=== PATIENT | female | born 1935 | race Caucasian/White ===

== ENCOUNTER 2018-09-18 10:21 | Emergency (ER) | payer OTHER ==
[2018-09-18 10:54] VITALS: BP 137/69; PULSE 86; TEMP 97.8; BMI 30.2
--- NOTE | 2018-09-18 12:02 | PDOC ---
History of Present Illness - General Chief Complaint: Injury Stated Complaint: INJURY Time Seen by Provider: 09/18/18 11:51 History Source: Patient Exam Limitations: No Limitations - History of Present Illness Initial Comments: 09/18/18 11:54 CHIEF COMPLAINT: Fall HISTORY OF PRESENT ILLNESS: This is an 83-year-old female with a history of insulin-dependent diabetes, hypertension, and hypercholesterolemia, all well controlled, who presents with her after a fall. The patient reports that she slipped on the sidewalk. She denies any dizziness, chest pain, or other prodrome and is clear that it was a mechanical fall. She fell onto her right side and broke her fall with her left hand. She complains of right shoulder and rib pain. She denies head strike or LOC, although she has right facial abrasions. Vital signs on arrival are unremarkable. PCP is Dr. Pyle. REVIEW OF SYSTEMS: GENERAL/CONSTITUTIONAL: No fever or chills. No weakness. No weight change. HEAD, EYES, EARS, NOSE AND THROAT: No change in vision. No ear pain or discharge. No sore throat. CARDIOVASCULAR: No chest pain or palpitations. RESPIRATORY: No cough, wheezing, or shortness of breath. GASTROINTESTINAL: No nausea, vomiting, diarrhea or constipation. GENITOURINARY: No dysuria, frequency, or change in urination. MUSCULOSKELETAL: Right shoulder pain, right rib pain worse with deep breathing. SKIN: No rash or easy bruising. NEUROLOGIC: No headache, vertigo, loss of consciousness, or loss of sensation. PSYCHIATRIC: No depression or anxiety. ENDOCRINE: No increased thirst. No abnormal weight change. HEMATOLOGIC/LYMPHATIC: No anemia, easy bleeding, or history of blood clots. ALLERGIC/IMMUNOLOGIC: No hives or skin allergy. No latex allergy. PHYSICAL EXAM: GENERAL: The patient is awake, alert, and fully oriented, in no acute distress. HEAD: Abrasions and ecchymosis around right eye, no tenderness or crepitus. ENT: Pupils equal, round and reactive to light, extraocular movements intact with no ophthalmoplegia, sclera anicteric, conjunctiva clear. Neck supple. LUNGS: Clear to auscultation bilaterally. Normal excursion. No respiratory distress or use of accessory muscles. CV: RRR, S1/S2, no MRG. Cap refill < 2 sec. ABDOMEN: Soft, non-distended, non-tender. EXTREMITIES: Right shoulder elevation/abduction limited due to pain. Swelling and ecchymosis at left 1st MCP, multiple hand abrasions. NEUROLOGICAL: Normal speech, normal gait. CN II-XII grossly intact. PSYCH: Normal mood, normal affect. SKIN: Warm, dry, normal turgor, no rashes or lesions noted. Past History - Past Medical History Allergies/Adverse Reactions: Allergies Allergy/AdvReac Type Severity Reaction Status Date / Time No Known Allergies Allergy Verified 09/18/18 10:50 Home Medications: Ambulatory Orders Amlodipine Besylate [Norvasc -] 10 mg PO DAILY 10/03/15 Ascorbate Calcium [Vitamin C] 500 mg PO DAILY 10/03/15 Atorvastatin Ca [Lipitor -] 40 mg PO HS 10/03/15 Calcium Carbonate/Vitamin D3 [Calcium 500 + Vit D3 400 Tab] 1 each PO BID Metformin HCl [Glucophage] 1,000 mg PO BID 10/03/15 Multivitamins [Tab-A-Vit -] 1 tab PO DAILY 10/03/15 Quinapril HCl [Accupril] 40 mg PO DAILY 10/03/15 Aspirin [Ecotrin] 81 mg PO DAILY 10/04/15 Atenolol/Chlorthalidone [Atenolol-Chlorthalidone 50-25] 1 each PO HS 10/04/15 Potassium Chloride [K-Dur] 10 meq PO ASDIR 10/04/15 Acetaminophen W/ Codeine #3 [Tylenol # 3 -] 1 tab PO Q4H PRN #30 tablet MDD 6 tabs 09/18/18 Insulin Aspart [Novolog] 0 unit SQ ASDIR 09/18/18 Insulin Degludec [Tresiba Flextouch U-100] 34 unit SQ HS 09/18/18 Anemia: No Asthma: No Cancer: No Cardiac Disorders: No CVA: No COPD: No CHF: No Dementia: No Diabetes: Yes (IDDM) GI Disorders: Yes (CONSTIPATION) Disorders: No HTN: Yes Hypercholesterolemia: Yes Liver Disease: No Seizures: No Thyroid Disease: No - Surgical History Abdominal Surgery: No Appendectomy: No Cardiac Surgery: No Cholecystectomy: No Lung Surgery: No Neurologic Surgery: No - Immunization History Immunization Up to Date: Yes - Suicide/Smoking/Psychosocial Hx Smoking History: Never smoked Hx Alcohol Use: No Drug/Substance Use Hx: No Substance Use Type: None Hx Substance Use Treatment: No *Physical Exam - Vital Signs Last Vital Signs Temp Pulse Resp BP Pulse Ox 97.8 F 86 16 137/69 99 09/18/18 10:50 09/18/18 10:50 09/18/18 10:50 09/18/18 10:50 09/18/18 10:50 Medical Decision Making - Medical Decision Making 09/18/18 14:26 A/P: 83-year-old female with multiple injuries following a mechanical fall. -Head CT (age > 65) -Xrays right shoulder, right ribs, left hand -Wound irrigation, bacitracin, tetanus booster -Lidoderm patch to right ribs (patient took Naproxen prior to arrival and declines additional analgesia) 09/18/18 14:28 Shoulder xray: no acute process Ribs: right 6th and 7th rib fractures, no signs of pneumothorax Hand xray: no acute process CT: No acute process, chronic right occipital lobe infarct (discussed with patient and provided copy of study) Provided incentive spirometer and reviewed use Rx Tylenol #3 Discussed with PCP, Dr. Pyle *DC/Admit/Observation/Transfer Diagnosis at time of Disposition: Shoulder sprain, Sprain of left hand Fall Qualifiers: Encounter type: initial encounter Qualified Code(s): W19.XXXA - Unspecified fall, initial encounter Ribs, multiple fractures Qualifiers: Encounter type: initial encounter Laterality: right - Discharge Dispostion Disposition: HOME Condition at time of disposition: Stable Decision to Admit order: No - Prescriptions Prescriptions: Acetaminophen W/ Codeine #3 [Tylenol # 3 -] 1 tab PO Q4H PRN #30 tablet MDD 6 tabs PRN Reason: Pain - Referrals Referrals: Gerardo Pyle MD [Staff Physician] - - Patient Instructions Printed Discharge Instructions: How to Use a Sling, DI for Rib Fracture Additional Instructions: You have fractures of the right 6th and 7th ribs Take Tylenol #3 as prescribed for pain. When pain is controlled, do incentive spirometry as discussed to prevent pneumonia (as often as possible, at least every hour while awake) Keep abrasions clean and dry and apply bacitracin twice daily Follow up with Dr yPle Return for uncontrolled pain or any other concerning symptoms - Post Discharge Activity
[2018-09-18] MEDS ORDERED: LIDOCAINE 5% TOPICAL PATCH TP ONE (12:10)
[2018-09-18] MEDS ORDERED: LIDOCAINE 5% TOPICAL PATCH ONE (12:57)
[2018-09-18] MEDS ORDERED: DIPHTH,PERTUSS(ACELL),TET 0.5 ML DISP.SYRIN IM ONE (14:22)
[2018-09-18] MEDS ORDERED: BACITRACIN 15 GM TUBE TOPICAL OINTMENT TP ONE (14:23)
[2018-09-18] MEDS ORDERED: BACITRACIN 0.9 GM PACKET ONE (14:40)
[2018-09-18] MEDS ORDERED: LIDOCAINE PATCH REMOVAL MC SCH (22:00)
== END 2018-09-18 15:30 | disposition home or self-care (01) ==
LOC: JER 10:21
PROC: 3E0234Z Introduction of Serum, Toxoid and Vaccine into Muscle, Percutaneous Approach (ICD-10-PCS; principal; 2018-09-18)
DX: S22.41XA Multiple fractures of ribs, right side, initial encounter for closed fracture (principal); S43.491A Other sprain of right shoulder joint, initial encounter; S00.11XA Contusion of right eyelid and periocular area, initial encounter; S60.222A Contusion of left hand, initial encounter; S60.512A Abrasion of left hand, initial encounter; S00.211A Abrasion of right eyelid and periocular area, initial encounter; W18.39XA Other fall on same level, initial encounter; Y93.01 Activity, walking, marching and hiking; Y92.480 Sidewalk as the place of occurrence of the external cause; Y99.8 Other external cause status; I10 Essential (primary) hypertension; E78.00 Pure hypercholesterolemia, unspecified; E11.9 Type 2 diabetes mellitus without complications; Z79.4 Long term (current) use of insulin
CPT/HCPCS: 70450-TC; 71101-TC-RT-FY; 73030-TC-RT-FY; 73130-TC-LR-FY; 90715; 99282-25

== ENCOUNTER 2019-03-30 14:49 | Emergency (ER) | payer OTHER | END 2019-03-30 17:23 | disposition home or self-care (01) | LOC: JERFT 14:49 ==

== ENCOUNTER 2019-05-18 11:12 | Emergency (ER) | payer OTHER ==
[2019-05-18 11:34] VITALS: BP 158/49; PULSE 74; TEMP 97.8; BMI 28.5
--- NOTE | 2019-05-18 13:59 | PDOC ---
History of Present Illness - General Chief Complaint: Back Pain Stated Complaint: BACK PAIN Time Seen by Provider: 05/18/19 13:18 History Source: Patient Exam Limitations: No Limitations - History of Present Illness Initial Comments: 05/18/19 14:00 83 yo F with a hx of HTN, HLD, DM on insulin, and recent left shoulder dislocation 1 month ago currently at PT presents to the emergency department with lower left back pain with radiation to the lateral aspect of the left thigh for 5 days. Per the patient, she was doing a new exercise that consisted of rotational forces on the shoulder while sitting down (a sitting down bike). The patient awoke the next morning after the exercise with bilateral lower back pain with worsening left lower back pain since. She states its 8/10, constant, sharp in quality with negligible relief with tylenol. She states the pain is absent in the morning and presents when she moves. The pain worsens when ambulating and when sitting up. Denies the following: trauma, fever, chills, hx of kidney stones, dysuria, hematuria, vaginal bleeding, vaginal discharge, urinary incontinence, and constipation. Allergies: NKDA Surgical: Hysterectomy 30+ years ago Social: Denies tobacco, alcohol, and substance abuse Past History - Past Medical History Allergies/Adverse Reactions: Allergies Allergy/AdvReac Type Severity Reaction Status Date / Time No Known Allergies Allergy Verified 05/18/19 11:27 Home Medications: Ambulatory Orders Amlodipine Besylate [Norvasc -] 10 mg PO DAILY 10/03/15 Ascorbate Calcium [Vitamin C] 500 mg PO DAILY 10/03/15 Atorvastatin Ca [Lipitor -] 40 mg PO HS 10/03/15 Calcium Carbonate/Vitamin D3 [Calcium 500 + Vit D3 400 Tab] 1 each PO BID Multivitamins [Tab-A-Vit -] 1 tab PO DAILY 10/03/15 Quinapril HCl [Accupril] 40 mg PO DAILY 10/03/15 Aspirin [Ecotrin] 81 mg PO DAILY 10/04/15 Atenolol/Chlorthalidone [Atenolol-Chlorthalidone 50-25] 1 each PO HS 10/04/15 Insulin Aspart [Novolog] 0 unit SQ ASDIR 09/18/18 Insulin Degludec [Tresiba Flextouch U-100] 34 unit SQ HS 09/18/18 Acetaminophen [Tylenol -] 500 mg PO Q6H PRN 05/18/19 Anemia: No Asthma: No Cancer: No Cardiac Disorders: No CVA: No COPD: No CHF: No Dementia: No Diabetes: Yes (IDDM) GI Disorders: Yes (CONSTIPATION) Disorders: No HTN: Yes Hypercholesterolemia: Yes Liver Disease: No Seizures: No Thyroid Disease: No - Surgical History Abdominal Surgery: No Appendectomy: No Cardiac Surgery: No Cholecystectomy: No Lung Surgery: No Neurologic Surgery: No - Immunization History Immunization Up to Date: Yes - Suicide/Smoking/Psychosocial Hx Smoking History: Unknown if ever smoked Hx Alcohol Use: No Drug/Substance Use Hx: No Substance Use Type: None Hx Substance Use Treatment: No *Physical Exam - Vital Signs Last Vital Signs Temp Pulse Resp BP Pulse Ox 97.8 F 74 16 158/49 L 99 05/18/19 11:32 05/18/19 11:32 05/18/19 11:32 05/18/19 11:32 05/18/19 11:32 - Physical Exam General Appearance: Yes: Nourished, Appropriately Dressed, Thin. No: Apparent Distress, Intoxicated HEENT: positive: EOMI, RICARDO, Symmetrical. negative: Pale Conjunctivae, Scleral Icterus (R), Scleral Icterus (L), Muffled/Hoarse voice, Pharyngeal Erythema, Tonsillar Exudate, Tonsillar Erythema Neck: positive: Trachea midline, Supple. negative: Tender, Lymphadenopathy (R) , Lymphadenopathy (L), Tender lateral, Tender midline Respiratory/Chest: positive: Lungs Clear, Normal Breath Sounds. negative: Chest Tender, Respiratory Distress, Accessory Muscle Use, Crackles, Rales, Rhonchi, Stridor, Wheezing Cardiovascular: positive: Regular Rhythm, Regular Rate, S1, S2. negative: Systolic Murmur Gastrointestinal/Abdominal: positive: Normal Bowel Sounds, Flat, Soft. negative : Tender Lymphatic: negative: Adenopathy Musculoskeletal: positive: Normal Inspection, Other (left paravertebral tenderness in the lumbar/sacral region with tenderness to palpation in the superior gluteus region. positive SLR test on the left side with elicitation of pain. pain provoked in the left lumbar region when standing and ambulating. ). negative: CVA Tenderness, Vertebral Tenderness *DC/Admit/Observation/Transfer Diagnosis at time of Disposition: Back pain Qualifiers: Back pain location: low back pain Chronicity: acute Back pain laterality: left Sciatica presence: with sciatica Sciatica laterality: sciatica laterality unspecified Qualified Code(s): M54.40 - Lumbago with sciatica, unspecified side - Discharge Dispostion Disposition: HOME Decision to Admit order: No - Referrals Referrals: Vernon Bell DO [Staff Physician] - - Patient Instructions Printed Discharge Instructions: DI for Low Back Pain Additional Instructions: You were seen for your back pain that occurred since . You are likely having sciatica pain vs muscular skeletal strain. Please follow up with your doctor within 1 week after discharge for follow up care and management. Please return to the emergency department if you have worsening pain or new concerning symptoms such as inability to walk, urinary troubles, and loss of balance. Thank you - Post Discharge Activity
[2019-05-18] MEDS ORDERED: LIDOCAINE 5% TOPICAL PATCH TP ONE (14:27)
[2019-05-18] MEDS ORDERED: ACETAMINOPHEN 325 MG TABLET (FP) PO ONE (14:27)
--- NOTE | 2019-05-18 15:40 | PDOC ---
Documentation entered by Jacqueline Ng SCRIBE, acting as scribe for Marcus Wright MD. Marcus Wright MD: This documentation has been prepared by the anabelibe, Jacqueline Ng SCRIBE, under my direction and personally reviewed by me in its entirety. I confirm that the documentation accurately reflects all work, treatment, procedures, and medical decision making performed by me. Attending Attestation - Resident Resident Name: Trent Benitez - ED Attending Attestation I have performed the following: I have examined & evaluated the patient, The case was reviewed & discussed with the resident, I agree w/resident's findings & plan - HPI HPI: 05/18/19 15:31 83-year-old female with history of hypertension and insulin-dependent diabetes presents with atraumatic left low back pain 4 days. Patient was at physical therapy, was on stationary bike and tolerated the exercise well 4 days ago. She awoke the next morning with some left low back pain that was initially localized and then began radiating down her posterior thigh to her knee. The pain is positional, worse with sitting up or initially sitting down, not associated with any weakness/numbness/bowel or bladder issues. No fall, no fevers or chills, no rash. No history of disc disease or chronic back issues. Taking Tylenol with minimal relief, avoid NSAIDs secondary to newly diagnosed renal insufficiency. - Physicial Exam PE: 05/18/19 15:32 Vital signs stable Seated comfortably in a wheelchair, in no acute distress, conversant and well appearing No midline spine tenderness to palpation or step-off or deformity No rash Reproducible tenderness in the left low back/left upper buttock region 5 out of 5 flexion/extension of bilateral hips/knees/ankle/toes. 2+ distal pulses, 3+ pitting edema bilaterally - Medical Decision Making 05/18/19 15:39 83-year-old female with atraumatic left low back pain with sciatic component, neurovascularly intact with full strength. No other red flags on history or physical exam. Lumbar spine x-ray Trial of Tylenol and lidocaine patch Discharge with orthopedics/PT referral. Can consider outpatient MRI if symptoms persist or worsen.
[2019-05-18] MEDS ORDERED: LIDOCAINE 5% TOPICAL PATCH ONE (15:41)
[2019-05-18] MEDS ORDERED: ACETAMINOPHEN 325 MG TABLET (FP) ONE (15:41)
[2019-05-18] MEDS ORDERED: LIDOCAINE PATCH REMOVAL MC SCH (22:00)
== END 2019-05-18 17:30 | disposition home or self-care (01) ==
LOC: JER 11:12
DX: M54.42 Lumbago with sciatica, left side (principal); I10 Essential (primary) hypertension; E11.9 Type 2 diabetes mellitus without complications; Z79.4 Long term (current) use of insulin; E78.00 Pure hypercholesterolemia, unspecified
CPT/HCPCS: 72100-TC-FY; 99281-25

== ENCOUNTER 2019-05-31 12:37 | Inpatient (IN) | payer OTHER ==
--- NOTE | 2019-05-31 13:04 | PDOC ---
Documentation entered by Areli Contreras SCRIBE, acting as scribe for Liberty Link DO. Liberty Link DO: This documentation has been prepared by the Ben murdock Mackenzie, SCRIBE, under my direction and personally reviewed by me in its entirety. I confirm that the documentation accurately reflects all work , treatment, procedures, and medical decision making performed by me. Attending Attestation - Resident Resident Name: Arpan Seth - ED Attending Attestation I have performed the following: I have examined & evaluated the patient, The case was reviewed & discussed with the resident, I agree w/resident's findings & plan - HPI HPI: The patient is an 84 year old female, with a significant PMH of IDDM, HTN, HLD, and a recent L4 fracture and left shoulder fracture, who presents to the emergency department BIBA because when she took her glucose level this morning it read as 55. Patient states she has been feeling lethargic and groggy for about 2 weeks after starting percocet (prescribed for her fractures) and this morning she found it very hard to get up. After taking her glucose level she drank some sugary fruit juice and her glucose came up to 85 though she was prompted to come in because she still felt very groggy and unlike herself. The patient denies chest pain, shortness of breath, headache and dizziness. Denies fever, chills, nausea, vomiting, diarrhea and constipation. Denies dysuria, frequency, urgency and hematuria. Allergies: NKA PCP: Dr. Harrell 05/31/19 13:43 - Physicial Exam PE: Constitutional: (+)Slightly lethargic. Awake, oriented. No acute distress. Head: Normocephalic. Atraumatic Eyes: PERRL. EOMI. Conjunctivae are not pale. ENT: Mucous membranes are moist and intact. Posterior pharynx without exudates or erythema. Uvula midline. Neck: Supple. Full ROM. No lymphadenopathy. Cardiovascular: Regular rate. Regular rhythm. S1, S2 regular. Distal pulses are 2+ and symmetric. Pulmonary/Chest: No evidence of respiratory distress. Clear to auscultation bilaterally No wheezing, rales or rhonchi. Abdominal: Soft and non-distended. There is no tenderness. No rebound, guarding or rigidity. No organomegaly. No palpable masses. Good bowel sounds. Back: No midline C, T, or L spine tenderness. No CVA tenderness. Musculoskeletal: No edema. No cyanosis. No clubbing. Full range of motion in all extremities. Nocalf tenderness. Radial/pedal pulses are intact and 2+ bilaterally Skin: Skin is warm and dry. No petechiae. No purpura. Neurological: Alert and oriented to person, place, and time. Cranial nerves II -XII are grossly intact. Normal speech. Strength is grossly symmetric. No sensory deficits. Psychiatric: Good eye contact. Normal interaction, affect and behavior. 05/31/19 13:44 - Critical Care Time Total Critical Care Time: 45 Critical Care Statement: The care of this patient involved high complexity decision making to prevent further life threatening deterioration of the patient 's condition and/or to evaluate & treat vital organ system(s) failure or risk of failure. - Medical Decision Making 05/31/19 13:32 I, Dr. Liberty Link, DO, attest that this document has been prepared under my direction and personally reviewed by me in its entirety. I further attest, that it accurately reflects all work, treatment, procedures and medical decision -making performed by me. 05/31/19 13:32 a/p: 84yo female with recent dx of L4 fx and pain down the L leg who started percocet yesterday and this AM has been lethargic with low glucose x 2 episodes this AM -pt arrives awake, alert after receiving glucose by the ambulance and at home by the -pt started percocet yesterday after being dx with L4 fx after 2 weeks of lbp and radiation down the L leg -pmd is dr. harrell -making appt to see back specialist at [facility] -pt denies dysuria, no cp/sob, no cough, no f/c -denies n/v/d -lethargic this AM after taking percocet at 8am -pt had low blood glucose at home 55- went to 85 after oral intake -again dropped to below 65 and again dosed with glucose by medics -had brbpr on -none since and states normal because of hx of hemorrhoids -had bm yesterday without blood -on iron for anemia -will send labs, ekg, finger stick, cxr, head ct -suspect adverse drug reaction from percocet causing low bp and lethargy - will check labs and eval for infection/head ct -no focal neuro findings 05/31/19 15:41 pt with hgb 4 - resident performed the rectal and stool is heme + elevated bun/cr resident ordered blood transfusion, she discussed the case with Dr. Harrell who recommends admission to [facility] resident discussed the case with [facility] who accepts the patient to service resident ordered the blood transfusion 05/31/19 15:[address]-old infarcts 05/31/19 15:51 cxr clear Heart Score/ECG Review - ECG Intrepretation Comment:: 05/31/19 13:03 sinus at 71, nl axis, nl interval, no acute st/t wave findings, t wave inversions III which are nonspecific
[2019-05-31] MEDS ORDERED: ONDANSETRON 4 MG/2 ML VIAL IVPUSH ONE (13:18)
[2019-05-31] MEDS ORDERED: NALOXONE HCL 0.4 MG/ML VIAL IVPUSH ONE (13:18)
[2019-05-31] MEDS ORDERED: SODIUM CHLORIDE 0.9% 500 ML INFUS.BAG IV ONE (13:31)
--- NOTE | 2019-05-31 13:32 | PDOC ---
History of Present Illness - General Chief Complaint: Blood Sugar Problem Stated Complaint: LOW BLOOD PRESSURE Time Seen by Provider: 05/31/19 12:46 - History of Present Illness Initial Comments: 05/31/19 13:44 84 y/o F hx of IDDM, Htn, chronic pancreatitis and recent L4 fracture presents to the ED with low blood sugar and somnolence. her found her diificult to rouse this morning and found her blood sugar to be low (55). she was given orange juice which brought her sugar up to 85 but her somnolence persisted. She was brought to the ED via EMS. She has been taking percocet as prescribed by her PCP over the last 2 wks for her back pain. She denies any fever, chills. LOC , recent falls, trauma, dysuria, hematuria, abdominal pain, headache, numbness or tingling.She feels lightheaded and has had some blood in her stool from her hemorrhoids. 06/04/19 16:12 Past History - Past Medical History Allergies/Adverse Reactions: Allergies Allergy/AdvReac Type Severity Reaction Status Date / Time No Known Allergies Allergy Verified 05/31/19 12:41 Home Medications: Ambulatory Orders Amlodipine Besylate [Norvasc -] 10 mg PO DAILY 10/03/15 Ascorbate Calcium [Vitamin C] 500 mg PO DAILY 10/03/15 Atorvastatin Ca [Lipitor -] 40 mg PO HS 10/03/15 Calcium Carbonate/Vitamin D3 [Calcium 500 + Vit D3 400 Tab] 1 each PO BID Multivitamins [Tab-A-Vit -] 1 tab PO DAILY 10/03/15 Quinapril HCl [Accupril] 40 mg PO DAILY 10/03/15 Aspirin [Ecotrin] 81 mg PO DAILY 10/04/15 Atenolol/Chlorthalidone [Atenolol-Chlorthalidone 50-25] 1 each PO HS 10/04/15 Insulin Aspart [Novolog] 0 unit SQ ASDIR 09/18/18 Insulin Degludec [Tresiba Flextouch U-100] 34 unit SQ HS 09/18/18 Acetaminophen [Tylenol -] 500 mg PO Q6H PRN 05/18/19 Anemia: No Asthma: No Cancer: No Cardiac Disorders: No CVA: No COPD: No CHF: No Dementia: No Diabetes: Yes (IDDM) GI Disorders: Yes (CONSTIPATION) Disorders: No HTN: Yes Hypercholesterolemia: Yes Liver Disease: No Seizures: No Thyroid Disease: No Other medical history: back problems, chronic pancreatitis - Surgical History Abdominal Surgery: No Appendectomy: No Cardiac Surgery: No Cholecystectomy: No Lung Surgery: No Neurologic Surgery: No - Immunization History Immunization Up to Date: Yes - Suicide/Smoking/Psychosocial Hx Smoking History: Never smoked Hx Alcohol Use: No Drug/Substance Use Hx: No Substance Use Type: None Hx Substance Use Treatment: No *Physical Exam - Vital Signs Last Vital Signs Temp Pulse Resp BP Pulse Ox 98.5 F 74 18 93/47 L 90 L 05/31/19 12:41 05/31/19 12:41 05/31/19 12:41 05/31/19 12:41 05/31/19 12:41 - Physical Exam General Appearance: Yes: Nourished, Appropriately Dressed. No: Apparent Distress HEENT: positive: Normal Voice, Symmetrical. negative: Scleral Icterus (R), Scleral Icterus (L) Neck: positive: Supple Respiratory/Chest: positive: Normal Breath Sounds. negative: Chest Tender, Respiratory Distress, Accessory Muscle Use Cardiovascular: positive: Regular Rhythm, Regular Rate, S1, S2, Edema. negative : JVD Vascular Pulses: Dorsalis-Pedis (R): 2+, Doralis-Pedis (L): 2+ Gastrointestinal/Abdominal: positive: Normal Bowel Sounds, Soft. negative: Organomegaly, Pulsatile Mass, Distended, Guarding, Rebound, Tenderness Rectal Exam: positive: normal exam, normal rectal tone Extremity: positive: Pedal Edema, Swelling, Other (2+ pitting edema to the calf) . 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 negative: Facial Droop ED Treatment Course - LABORATORY CBC & Chemistry Diagram: 06/04/19 05:17 06/04/19 05:17 Medical Decision Making - Medical Decision Making 05/31/19 13:40 84 y/o F hx of T2DM on insulin, htn, recent L4 fracture presenting to the ED with low blood sugar and increased somnolence this a.m Labs/Imaging/meds cbc troponin, cmp ekg drug screen lactic acid magnesium bnp pt/inr tsh ua - 500 cc normal saline for hypotension -EKG normal sinus rhythm. Normal EKG 05/31/19 14:13 CXR shows old skeletal trauma, no acute chest pathology. POC fingerstick glucose is 101 05/31/19 14:38 H&H: 4.6/14.4 Type and screen and stool for occult blood ordered. 05/31/19 15:09 Dr. Mendoza contacted for pt. admission. Agrees with admission plan. [facility] admitting team has been microblogged for pt. admission. *DC/Admit/Observation/Transfer Diagnosis at time of Disposition: Hypoglycemia Anemia Qualifiers: Anemia type: unspecified type Qualified Code(s): D64.9 - Anemia, unspecified - Discharge Dispostion Decision to Admit order: Yes - Referrals - Patient Instructions - Post Discharge Activity
[2019-05-31 14:19] LABS: BASO % 0.5 % (0-2.0); EOS % 0.1 % (0-4.5); LYMPH % 8.2 % (8-40); MCH 21.8 pg (25.7-33.7); MCHC 31.5 g/dl (32.0-36.0); MEAN CELL VOLUME 69.1 fl (80-96); MEAN PLT VOLUME 8.4 fl (7.5-11.1); MONO % 3.2 % (3.8-10.2); PLATELET COUNT 191 K/MM3 (134-434); RBC 2.09 M/mm3 (3.60-5.2); RDW 14.9 % (11.6-15.6); WHITE BLOOD COUNT 10.7 K/mm3 (4.0-10.0)
[2019-05-31 14:33] LABS: HEMATOCRIT 14.4 % (32.4-45.2); HEMOGLOBIN 4.6 GM/dL (10.7-15.3)
[2019-05-31 14:48] LABS: ALBUMIN 2.4 g/dl (3.4-5.0); BILIRUBIN,TOTAL 0.2 mg/dL (0.2-1); BLOOD UREA NITROGEN 82.9 mg/dL (7-18); CALCIUM 7.9 mg/dL (8.5-10.1); CREATININE 2.8 mg/dL (0.55-1.3); MAGNESIUM 2.3 mg/dL (1.8-2.4); N-TERMINAL BNP 2673.1 pg/ml (5-450); POTASSIUM 4.9 mmol/L (3.5-5.1); TOT PROT 5.1 g/dl (6.4-8.2)
--- NOTE | 2019-05-31 16:24 | HP ---
Admitting History and Physical - Primary Care Physician PCP: Gerardo Pyle - Admission Chief Complaint: malaise/low blood sugar/generalized weakness History of Present Illness: Patient is an 84 year old female with a significant past medical history of insulin dependent diabetes mellitus, hypertension, hyperlipidemia, blood disorder (thalassemia) per family member and a recent L4 fracture for which she began taking Percocet for back pain, left sided proximal humerous fracture and renal insufficiency. Patient presented to the ED via ambulance accompanied by her family. Per family and patient, patient has not been feeling well for the last two weeks since starting Percocet for back pain. This morning patient was noted to be more lethargic and groggy and it was hard for her to perform any of her ADLs. Her family tested her glucose levels and it was 55, she was given orange juce and the repeat glucose level was 85. Her family became concerned because patient was very weak and lethargic, therefore EMS was called. Patient had no head trauma, no falls and no chest pain. Family reports that patient had a rectal bleed episode on Saturday after using the bathroom. patient began to strain to have a bowel movement and had bright red blood noted in the toilet. On exam, patient is laying in the bed, she tells me she is in no acute distress and denies any malaise. She does appear fatigued and is pallorous. She is on oxygen for support. clinically appears dehydrated. She is alert and oriented x 3. discussed plan with patient and family and they are in agreement with plan. The patient denies chest pain, shortness of breath, headache and dizziness. Denies fever, chills, nausea, vomiting, diarrhea Denies dysuria, frequency, urgency and hematuria. ED course notable for: - blood sugar was 112 - she was noted to be hypotensive: 90/40 and she was given fluid bolus of 500cc ns. repeat BP pending. - vitals: 98.5, 74, 90% room and placed on 2 liters nc - hmg/hct 4.6/14.4. rectal exam performed by ED resident which was +heme - bun 82/2.8 - iron studies ordered prior to blood transfusion Plan: Will keep her NPO and start protonix drip. Start IVF resuscitation. Monitor on tele 2 units of prbc have been ordered for a repeat CBC post blood transfusion/type and screen and stool for occult blood ordered. monitor vitals q 4 hours GI and renal consulted hold PO meds, including cardiac meds and check BGMS q 4 hours History Source: Patient, Family Member Limitations to Obtaining History: No Limitations - Past Medical History Cardiovascular: Yes: HTN ...: No Heme/Onc: Yes: Bleeding Disorder Musculoskeletal: Yes: Chronic low back pain - Smoking History Smoking history: Never smoked - Alcohol/Substance Use Hx Alcohol Use: No - Social History Usual Living Arrangement: Yes: With Spouse ADL: Independent History of Recent Travel: No Home Medications - Allergies Allergies/Adverse Reactions: Allergies Allergy/AdvReac Type Severity Reaction Status Date / Time No Known Allergies Allergy Verified 05/31/19 12:41 - Home Medications Home Medications: Ambulatory Orders Amlodipine Besylate [Norvasc -] 10 mg PO DAILY 10/03/15 Ascorbate Calcium [Vitamin C] 500 mg PO DAILY 10/03/15 Atorvastatin Ca [Lipitor -] 40 mg PO HS 10/03/15 Calcium Carbonate/Vitamin D3 [Calcium 500 + Vit D3 400 Tab] 1 each PO BID Multivitamins [Tab-A-Vit -] 1 tab PO DAILY 10/03/15 Quinapril HCl [Accupril] 40 mg PO DAILY 10/03/15 Aspirin [Ecotrin] 81 mg PO DAILY 10/04/15 Atenolol/Chlorthalidone [Atenolol-Chlorthalidone 50-25] 1 each PO HS 10/04/15 Insulin Aspart [Novolog] 0 unit SQ ASDIR 09/18/18 Insulin Degludec [Tresiba Flextouch U-100] 34 unit SQ HS 09/18/18 Acetaminophen [Tylenol -] 500 mg PO Q6H PRN 05/18/19 Review of Systems - Review of Systems Constitutional: reports: Lethargy, Loss of Appetite, Malaise Eyes: reports: No Symptoms HENT: reports: No Symptoms Neck: reports: No Symptoms Cardiovascular: reports: No Symptoms Respiratory: reports: Exercise Intolerance, SOB on Exertion Gastrointestinal: reports: Melena Genitourinary: reports: No Symptoms Breasts: reports: No Symptoms Reported Musculoskeletal: reports: Back Pain Integumentary: reports: Pallor Hematology/Lymphatic: reports: Excessive Bleeding Physical Examination Vital Signs: Vital Signs Temperature 98.5 F 07/28/19 12:41 Pulse Rate 74 05/31/19 12:41 Respiratory Rate 18 05/31/19 12:41 Blood Pressure 93/47 L 05/31/19 12:41 O2 Sat by Pulse Oximetry (%) 90 L 05/31/19 12:41 Constitutional: Yes: Calm, Ashen, Pallor Eyes: Yes: WNL HENT: Yes: WNL, Atraumatic Neck: Yes: WNL, Supple, Trachea Midline Cardiovascular: Yes: Regular Rate and Rhythm Respiratory: Yes: Diminished Gastrointestinal: Yes: Soft ...Rectal Exam: Yes: Deferred Renal/: Yes: WNL Musculoskeletal: Yes: Back Pain Extremities: Yes: WNL Edema: No Peripheral Pulses WNL: No Integumentary: Yes: WNL Neurological: Yes: Alert, Oriented Psychiatric: Yes: Alert, Oriented Labs: CBC, BMP 05/31/19 14:06 05/31/19 14:06 Imaging - Results Chest X-ray: Report Reviewed Problem List - Problems (1) Rectal bleed Assessment/Plan: patient presents with severe symptomatic anemia with hmg/hct @ 4.6/14. Reports a rectal bleed on Saturday after straining to have a BM. Stool for guaic + for heme Start on protonix drip consult GI (follows with Dr. Meraz) Will keep NPO for acute rectal bleed. Code(s): K62.5 - HEMORRHAGE OF ANUS AND RECTUM (2) Anemia Assessment/Plan: patient presents with severe symptomatic anemia with hmg/hct @ 4.6/14. Reports a rectal bleed on Saturday after straining to have a BM. Stool for guaic + for heme for 2 units of PRBC tonight to be started, which will take apx 8 hours to infuse. therefore, will recheck CBC at 0500. Start on protonix drip consult GI (follows with Dr. Meraz) Will keep NPO for acute rectal bleed. Code(s): D64.9 - ANEMIA, UNSPECIFIED Qualifiers: Anemia type: unspecified type Qualified Code(s): D64.9 - Anemia, unspecified (3) Symptomatic anemia Assessment/Plan: see anemia. Code(s): D64.9 - ANEMIA, UNSPECIFIED (4) Hypoglycemia Assessment/Plan: hypoglycemic at home with blood glucose 55, patient reported to be lethargic at home head ct negative for acute process blood sugar here 112, will give d5 ns @ 100 during admission with close monitoring of bgms Q4 hours if falls below 70, please administer d50 to maintain bgms above 150 for a1c in a.m. Code(s): E16.2 - HYPOGLYCEMIA, UNSPECIFIED (5) Hypotension Assessment/Plan: hypotensive likely secondary to acute anemia fluid bolus 500cc and start on maintenance fluids blood cultures ordered to rule out acute infection telemonitoring Code(s): I95.9 - HYPOTENSION, UNSPECIFIED (6) Renal insufficiency Assessment/Plan: bun creat elevated on admission. follows with Dr. Hernandez for renal insufficiency will renal dose all medications Code(s): N28.9 - DISORDER OF KIDNEY AND URETER, UNSPECIFIED (7) Back pain Code(s): M54.9 - DORSALGIA, UNSPECIFIED Qualifiers: Back pain location: low back pain Chronicity: acute Back pain laterality : left Sciatica presence: with sciatica Sciatica laterality: sciatica laterality unspecified Qualified Code(s): M54.40 - Lumbago with sciatica, unspecified side (8) Diabetes Assessment/Plan: bgms q 4, hold insulin Code(s): E11.9 - TYPE 2 DIABETES MELLITUS WITHOUT COMPLICATIONS (9) Back pain Assessment/Plan: chronic back pain on percocet at home. Percocet likely contributing to lethargy and constipation. hold all narcotics. on tylenol ivpb, will add lidoderm patch for back pain. physical therapy when patient more stable. Code(s): M54.9 - DORSALGIA, UNSPECIFIED (10) Prophylactic measure Assessment/Plan: fen d5 ns @ 100 monitor electrolytes NPO prophy SCDS Code(s): Z29.9 - ENCOUNTER FOR PROPHYLACTIC MEASURES, UNSPECIFIED Assessment/Plan Monitor patient bp closely as well as bgms. she is for prbc x 2 with repeat cbc in a.m. suspect she will need another 2 units pending cbc. may need further GI workup for acute blood loss anemia, therefore will keep NPO. Visit type - Emergency Visit Emergency Visit: Yes ED Registration Date: 05/31/19 Care time: The patient presented to the Emergency Department on the above date and was hospitalized for further evaluation of their emergent condition. - New Patient This patient is new to me today: Yes Date on this admission: 05/31/19 - Critical Care Critical Care patient: No
[2019-05-31] MEDS ORDERED: DEXTROSE 5%-WATER - 1,000 ML IV SCH (16:30)
[2019-05-31] MEDS ORDERED: DEXTROSE 5%-NORMAL SALINE 1,000 ML IV SCH (16:30)
[2019-05-31] MEDS ORDERED: PANTOPRAZOLE SODIUM 40 MG VIAL ONE (17:13)
[2019-05-31 17:14] LABS: ANISOCYTOSIS 2+; MACROCYTOSIS 1+; OVALOCYTE 1+; PLATELET ESTIMATE NORMAL
[2019-05-31] MEDS: PANTOPRAZOLE SODIUM 80 MG in SODIUM CHLORIDE 100 ML IVPB SCH (17:51)
--- NOTE | 2019-05-31 20:58 | EKG ---
Test Reason : Blood Pressure : / mmHG Vent. Rate : 071 BPM Atrial Rate : 071 BPM P-R Int : 166 ms QRS Dur : 080 ms QT Int : 428 ms P-R-T Axes : 029 019 019 degrees QTc Int : 465 ms NORMAL SINUS RHYTHM NORMAL ECG NO PREVIOUS ECGS AVAILABLE Confirmed by DANIELLE LEIGH MD ([id number]) on 05/31/2019 8:58:43 PM Referred By: Confirmed By:DANIELLE LEIGH MD
[2019-05-31] MEDS: LIDOCAINE 5% TOPICAL PATCH TP SCH (22:06)
[2019-05-31 23:20] LABS: COCAINE, UR NEGATIVE ng/ml (CUTOFF=300); METHADONE, UR NEGATIVE ng/ml (CUTOFF=300); PHENCYCLIDINE,URINE NEGATIVE ng/ml (CUTOFF=25); URINE AMPHETAMINES NEGATIVE ng/ml (CUTOFF=500); URINE BARBITURATES NEGATIVE ng/ml (CUTOFF=200); URINE BENZODIAZEPINES NEGATIVE ng/ml (CUTOFF=200)
[2019-05-31 23:22] LABS: OPIATES, URI POSITIVE ng/ml (CUTOFF=300)
[2019-05-31 23:37] LABS: PROTHROMBIN TIME (PATIENT) 12.2 SEC (9.7-13.0)
[2019-05-31 23:38] LABS: INR 1.03 (0.83-1.09)
[2019-06-01] MEDS ORDERED: DEXTROSE 50%-WATER - 25 GM/50 ML VIAL IVPUSH ONE (02:18)
[2019-06-01] MEDS ORDERED: DEXTROSE 50%-WATER 25 GM/50 ML DISP.SYRIN ONE (02:19)
[2019-06-01] MEDS: PANTOPRAZOLE SODIUM 80 MG in SODIUM CHLORIDE 100 ML IVPB SCH ×3 (02:58→22:03)
[2019-06-01 03:30] VITALS: BMI 29.1
--- NOTE | 2019-06-01 07:13 | PN ---
Progress Note, Physician Chief Complaint: 84 y.o F was admitted to [facility] with weakness, sleepiness, and hypoglycemia. She was noted to have worsened BUN /Cr=83/2.8 She was found to have H/H 4.6/14.4 and was admitted for further management. Over the night recurrent episode of hypoglycemia which was treated with D50 ( the patient was on Tresiba GAS SINGER and NPO post admission). Her Stool was guaiac positive and the patient received 2 units PRBC, repeated CBC -pending History of Present Illness: DM 2 on Insulin HTN CKD recently worsened and saw by Dr Dee. 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 Macular degeneration. HLD - Current Medication List Current Medications: Active Medications Acetaminophen (Ofirmev Injection -) 1,000 mg IVPB Q6H PRN PRN Reason: PAIN LEVEL 6-10 Atorvastatin Calcium (Lipitor -) 40 mg PO [facility] Pantoprazole Sodium 80 mg/ (Sodium Chloride) 100 mls @ 10 mls/hr IVPB Q10H [facility] Last Admin: 06/01/19 02:58 Dose: Not Given Dextrose/Sodium Chloride (D5-Ns -) 1,000 mls @ 100 mls/hr IV ASDIR [facility] Last Admin: 05/31/19 17:24 Dose: 100 mls/hr Lidocaine (Lidoderm Patch -) 1 patch TP HS [facility] Last Admin: 05/31/19 22:06 Dose: 1 patch Miscellaneous (Lidoderm Patch Removal) 1 each DAILY [facility] - Objective Vital Signs: Vital Signs Temperature 97.3 F L 06/01/19 05:30 Pulse Rate 68 06/01/19 05:30 Respiratory Rate 18 06/01/19 05:30 Blood Pressure 113/56 L 06/01/19 05:30 O2 Sat by Pulse Oximetry (%) 98 05/31/19 19:19 Constitutional: Yes: Anxious, Mild Distress, Pallor Eyes: Yes: Conjunctiva Clear, EOM Intact HENT: Yes: Atraumatic, Normocephalic Neck: Yes: Supple, Trachea Midline Cardiovascular: Yes: Regular Rate and Rhythm, S1, S2. No: Bradycardia, Tachycardia, Bruit, JVD Respiratory: Yes: Regular, CTA Bilaterally Gastrointestinal: Yes: Normal Bowel Sounds, Soft. No: Abdomen, Obese, Palpable Mass ...Rectal Exam: Yes: Deferred (Guaiac positive) Genitourinary: No: Anuria Musculoskeletal: Yes: WNL Extremities: Yes: WNL Edema: No Neurological: Yes: WNL ...Motor Strength: WNL Psychiatric: Yes: WNL Labs: CBC, BMP 05/31/19 14:06 05/31/19 14:06 INR, PTT INR 1.03 (0.83-1.09) 05/31/19 13:17 Laboratory Results - last 24 hr 05/31/19 05/31/19 05/31/19 13:17 13:17 13:47 WBC RBC Hgb Hct MCV MCH MCHC RDW Plt Count MPV Absolute Neuts (auto) Neutrophils % Lymphocytes % Monocytes % Eosinophils % Basophils % Nucleated RBC % Hypochromia Platelet Estimate Platelet Comment Anisocytosis Microcytosis Macrocytosis Ovalocytes PT with INR 12.20 INR 1.03 PTT (Actin FS) Sodium Potassium Chloride Carbon Dioxide Anion Gap BUN Creatinine Est GFR (CKD-EPI)AfAm Est GFR (CKD-EPI)NonAf POC Glucometer 101 Random Glucose Lactic Acid 1.9 Calcium Magnesium Iron TIBC Iron Saturation Unsaturated IBC Ferritin Total Bilirubin AST ALT Alkaline Phosphatase Creatine Kinase Troponin I B-Natriuretic Peptide Total Protein Albumin TSH Stool Occult Blood Opiates Screen Methadone Screen Acetaminophen Barbiturate Screen Phencyclidine Screen Ur Amphetamines Screen MDMA (Ecstasy) Screen Benzodiazepines Screen Cocaine Screen U Marijuana (THC) Screen Anti-A Titer Blood Type Antibody Screen Crossmatch 05/31/19 05/31/19 05/31/19 14:06 14:06 14:06 WBC 10.7 H RBC 2.09 L Hgb 4.6 L* Hct 14.4 L MCV 69.1 L MCH 21.8 L MCHC 31.5 L RDW 14.9 Plt Count 191 MPV 8.4 Absolute Neuts (auto) 9.5 H Neutrophils % 88.0 H Lymphocytes % 8.2 Monocytes % 3.2 L Eosinophils % 0.1 Basophils % 0.5 Nucleated RBC % 0 Hypochromia 3+ Platelet Estimate Normal Platelet Comment No clumping noted Anisocytosis 2+ Microcytosis 1+ Macrocytosis 1+ Ovalocytes 1+ PT with INR INR PTT (Actin FS) 26.7 Sodium Potassium Chloride Carbon Dioxide Anion Gap BUN Creatinine Est GFR (CKD-EPI)AfAm Est GFR (CKD-EPI)NonAf POC Glucometer Random Glucose Lactic Acid Calcium Magnesium Iron TIBC Iron Saturation Unsaturated IBC Ferritin Total Bilirubin AST ALT Alkaline Phosphatase Creatine Kinase 29 Troponin I 0.02 B-Natriuretic Peptide Total Protein Albumin TSH Stool Occult Blood Opiates Screen Methadone Screen Acetaminophen Barbiturate Screen Phencyclidine Screen Ur Amphetamines Screen MDMA (Ecstasy) Screen Benzodiazepines Screen Cocaine Screen U Marijuana (THC) Screen Anti-A Titer Blood Type Antibody Screen Crossmatch 05/31/19 05/31/19 05/31/19 14:06 14:06 14:06 WBC RBC Hgb Hct MCV MCH MCHC RDW Plt Count MPV Absolute Neuts (auto) Neutrophils % Lymphocytes % Monocytes % Eosinophils % Basophils % Nucleated RBC % Hypochromia Platelet Estimate Platelet Comment Anisocytosis Microcytosis Macrocytosis Ovalocytes PT with INR INR PTT (Actin FS) Sodium 138 Potassium 4.9 Chloride 108 H Carbon Dioxide 18 L Anion Gap 11 BUN 82.9 H Creatinine 2.8 H Est GFR (CKD-EPI)AfAm 17.13 Est GFR (CKD-EPI)NonAf 14.78 POC Glucometer Random Glucose 112 H Lactic Acid Calcium 7.9 L Magnesium 2.3 Cancelled Iron 17 L TIBC 271 Iron Saturation 6 L Unsaturated IBC 254 Ferritin 28.3 Total Bilirubin 0.2 AST 15 ALT 22 Alkaline Phosphatase 86 Creatine Kinase Troponin I B-Natriuretic Peptide 2673.1 H Cancelled Total Protein 5.1 L Albumin 2.4 L TSH 1.25 Stool Occult Blood Opiates Screen Methadone Screen Acetaminophen Barbiturate Screen Phencyclidine Screen Ur Amphetamines Screen MDMA (Ecstasy) Screen Benzodiazepines Screen Cocaine Screen U Marijuana (THC) Screen Anti-A Titer Blood Type Antibody Screen Crossmatch 05/31/19 05/31/19 05/31/19 14:06 15:14 17:10 WBC RBC Hgb Hct MCV MCH MCHC RDW Plt Count MPV Absolute Neuts (auto) Neutrophils % Lymphocytes % Monocytes % Eosinophils % Basophils % Nucleated RBC % Hypochromia Platelet Estimate Platelet Comment Anisocytosis Microcytosis Macrocytosis Ovalocytes PT with INR INR PTT (Actin FS) Sodium Potassium Chloride Carbon Dioxide Anion Gap BUN Creatinine Est GFR (CKD-EPI)AfAm Est GFR (CKD-EPI)NonAf POC Glucometer Random Glucose Lactic Acid Calcium Magnesium Iron TIBC Iron Saturation Unsaturated IBC Ferritin Total Bilirubin AST ALT Alkaline Phosphatase Creatine Kinase Troponin I B-Natriuretic Peptide Total Protein Albumin TSH Cancelled Stool Occult Blood Positive Opiates Screen Methadone Screen Acetaminophen Barbiturate Screen Phencyclidine Screen Ur Amphetamines Screen MDMA (Ecstasy) Screen Benzodiazepines Screen Cocaine Screen U Marijuana (THC) Screen Anti-A Titer Blood Type A POSITIVE Antibody Screen Negative Crossmatch See Detail 05/31/19 05/31/19 05/31/19 18:29 18:29 20:20 WBC RBC Hgb Hct MCV MCH MCHC RDW Plt Count MPV Absolute Neuts (auto) Neutrophils % Lymphocytes % Monocytes % Eosinophils % Basophils % Nucleated RBC % Hypochromia Platelet Estimate Platelet Comment Anisocytosis Microcytosis Macrocytosis Ovalocytes PT with INR INR PTT (Actin FS) Sodium Potassium Chloride Carbon Dioxide Anion Gap BUN Creatinine Est GFR (CKD-EPI)AfAm Est GFR (CKD-EPI)NonAf POC Glucometer Random Glucose Lactic Acid Calcium Magnesium Iron TIBC Iron Saturation Unsaturated IBC Ferritin Total Bilirubin AST ALT Alkaline Phosphatase Creatine Kinase Troponin I B-Natriuretic Peptide Total Protein Albumin TSH Stool Occult Blood Opiates Screen Methadone Screen Acetaminophen 2.5 L Barbiturate Screen Phencyclidine Screen Ur Amphetamines Screen MDMA (Ecstasy) Screen Benzodiazepines Screen Cocaine Screen U Marijuana (THC) Screen Anti-A Titer Cancelled Blood Type A POSITIVE Cancelled Antibody Screen Cancelled Crossmatch 05/31/19 05/31/19 05/31/19 20:20 22:25 22:30 WBC RBC Hgb Hct MCV MCH MCHC RDW Plt Count MPV Absolute Neuts (auto) Neutrophils % Lymphocytes % Monocytes % Eosinophils % Basophils % Nucleated RBC % Hypochromia Platelet Estimate Platelet Comment Anisocytosis Microcytosis Macrocytosis Ovalocytes PT with INR INR PTT (Actin FS) Sodium Potassium Chloride Carbon Dioxide Anion Gap BUN Creatinine Est GFR (CKD-EPI)AfAm Est GFR (CKD-EPI)NonAf POC Glucometer 63 Random Glucose Lactic Acid Calcium Magnesium Iron TIBC Iron Saturation Unsaturated IBC Ferritin Total Bilirubin AST ALT Alkaline Phosphatase Creatine Kinase Troponin I 0.14 H B-Natriuretic Peptide Total Protein Albumin TSH Stool Occult Blood Opiates Screen Positive A* Methadone Screen Negative Acetaminophen Barbiturate Screen Negative Phencyclidine Screen Negative Ur Amphetamines Screen Negative MDMA (Ecstasy) Screen Negative Benzodiazepines Screen Negative Cocaine Screen Negative U Marijuana (THC) Screen Negative Anti-A Titer Blood Type Antibody Screen Crossmatch 06/01/19 06/01/19 02:16 05:53 WBC RBC Hgb Hct MCV MCH MCHC RDW Plt Count MPV Absolute Neuts (auto) Neutrophils % Lymphocytes % Monocytes % Eosinophils % Basophils % Nucleated RBC % Hypochromia Platelet Estimate Platelet Comment Anisocytosis Microcytosis Macrocytosis Ovalocytes PT with INR INR PTT (Actin FS) Sodium Potassium Chloride Carbon Dioxide Anion Gap BUN Creatinine Est GFR (CKD-EPI)AfAm Est GFR (CKD-EPI)NonAf POC Glucometer 37 88 Random Glucose Lactic Acid Calcium Magnesium Iron TIBC Iron Saturation Unsaturated IBC Ferritin Total Bilirubin AST ALT Alkaline Phosphatase Creatine Kinase Troponin I B-Natriuretic Peptide Total Protein Albumin TSH Stool Occult Blood Opiates Screen Methadone Screen Acetaminophen Barbiturate Screen Phencyclidine Screen Ur Amphetamines Screen MDMA (Ecstasy) Screen Benzodiazepines Screen Cocaine Screen U Marijuana (THC) Screen Anti-A Titer Blood Type Antibody Screen Crossmatch Problem List - Problems (1) Back pain Assessment/Plan: Tylenol for pain, Lidoderm topically Code(s): M54.9 - DORSALGIA, UNSPECIFIED Qualifiers: Back pain laterality: left Sciatica presence: with sciatica Sciatica laterality: sciatica of left side (2) Hypoglycemia Assessment/Plan: Long acting Insulin was D/C until she starts eating. IV D5 BGM Insulin coverage. Code(s): E16.2 - HYPOGLYCEMIA, UNSPECIFIED (3) Renal insufficiency Assessment/Plan: BUN worsened and creat Possibly ATN after an episode of hypoglycemia. Disproportional elevation of BUN may be due to UGI bleed Continue IV hydration Code(s): N28.9 - DISORDER OF KIDNEY AND URETER, UNSPECIFIED (4) Symptomatic anemia Assessment/Plan: Check H/H PRBC Tx Hematology consult Anemia w/u Code(s): D64.9 - ANEMIA, UNSPECIFIED (5) Elevated troponin I level Assessment/Plan: Episode of hypotension, anemia, demand ischemia. 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
[2019-06-01 08:14] LABS: BASO % 0.5 % (0-2.0); EOS % 0.7 % (0-4.5); HEMATOCRIT 22.2 % (32.4-45.2); HEMOGLOBIN 7.4 GM/dL (10.7-15.3); LYMPH % 12.6 % (8-40); MCH 25.6 pg (25.7-33.7); MCHC 33.3 g/dl (32.0-36.0); MEAN CELL VOLUME 76.9 fl (80-96); MEAN PLT VOLUME 8.6 fl (7.5-11.1); MONO % 7.5 % (3.8-10.2); NEUT % 78.7 % (42.8-82.8); PLATELET COUNT 179 K/MM3 (134-434); RBC 2.88 M/mm3 (3.60-5.2); RDW 20.7 % (11.6-15.6); WHITE BLOOD COUNT 8.8 K/mm3 (4.0-10.0)
[2019-06-01 08:43] LABS: ALBUMIN 2.6 g/dl (3.4-5.0); BILIRUBIN,TOTAL 0.7 mg/dL (0.2-1); BLOOD UREA NITROGEN 75.1 mg/dL (7-18); CALCIUM 8.3 mg/dL (8.5-10.1); CREATININE 2.7 mg/dL (0.55-1.3); MAGNESIUM 2.3 mg/dL (1.8-2.4); POTASSIUM 4.4 mmol/L (3.5-5.1); TOT PROT 5.7 g/dl (6.4-8.2)
[2019-06-01 09:21] LABS: IRON SERUM 156 ug/dL (50-175); TOTAL IRON BINDING CAPACITY 302 ug/dL (250-450)
--- NOTE | 2019-06-01 10:35 | CON.GI ---
Consult Consult Specialty:: Gastroenterology - History of Present Illness Chief Complaint: Fatigue, rectal bleeding History of Present Illness: 84yo female h/o DM, HTN, ?thalassemia, L4 fracture presents with fatigue and reported rectal bleeding. Pt reports feeling fatigued yesterday morning and was found to be hypoglycemic ( sugars 50s) therefore prompting ED evaluation. Per records increased lethargy noted over the past few weeks thoug pt denies. She reports intermittent rectal bleeding, described as bright blood mostly on toilet paper every few days mostly associated with straining and hard stools. Moves bowels at baseline every 1-2 days. Pts told her to take metamucil though not taking fiber supplment or laxatives regularly. Reports larger amount of bleeding on Saturday with approximately half cup bright blood associated with bm. Denies heartburn, abdominal pain, n/v. Appetite good. Denies weight loss. Denies NSAIDs use. No known family h/o GI malignancy. Last colonoscopy by Dr. Meraz in 10/2015 revealing moderate diverticulosis and large internal/external hemorrhoids. In ED, Hb noted to be 4.6 (mcv 69) s/p 2u prbc, repeat Hb 7.4 No bleeding noted during hospitalization per nursing staff. - History Source History Provided By: Patient - Past Medical History Cardio/Vascular: Yes: HTN ...: No Musculoskeletal: Yes: Chronic low back pain - Alcohol/Substance Use Hx Alcohol Use: No - Smoking History Smoking history: Never smoked Have you smoked in the past 12 months: No - Social History ADL: Independent History of Recent Travel: No Home Medications - Allergies Allergies/Adverse Reactions: Allergies Allergy/AdvReac Type Severity Reaction Status Date / Time No Known Allergies Allergy Verified 05/31/19 12:41 - Home Medications Home Medications: Ambulatory Orders Amlodipine Besylate [Norvasc -] 10 mg PO DAILY 10/03/15 Ascorbate Calcium [Vitamin C] 500 mg PO DAILY 10/03/15 Atorvastatin Ca [Lipitor -] 40 mg PO HS 10/03/15 Calcium Carbonate/Vitamin D3 [Calcium 500 + Vit D3 400 Tab] 1 each PO BID Multivitamins [Tab-A-Vit -] 1 tab PO DAILY 10/03/15 Quinapril HCl [Accupril] 40 mg PO DAILY 10/03/15 Aspirin [Ecotrin] 81 mg PO DAILY 10/04/15 Atenolol/Chlorthalidone [Atenolol-Chlorthalidone 50-25] 1 each PO HS 10/04/15 Insulin Aspart [Novolog] 0 unit SQ ASDIR 09/18/18 Insulin Degludec [Tresiba Flextouch U-100] 34 unit SQ HS 09/18/18 Acetaminophen [Tylenol -] 500 mg PO Q6H PRN 05/18/19 Review of Systems - Review of Systems Constitutional: reports: No Symptoms Eyes: reports: No Symptoms Cardiovascular: reports: No Symptoms Respiratory: reports: No Symptoms Gastrointestinal: reports: Rectal Bleeding Musculoskeletal: reports: Back Pain Physical Exam-GI Vital Signs: Vital Signs Temperature 97.3 F L 06/01/19 05:30 Pulse Rate 72 06/01/19 08:24 Respiratory Rate 20 06/01/19 08:24 Blood Pressure 128/59 L 06/01/19 08:24 O2 Sat by Pulse Oximetry (%) 94 L 06/01/19 08:25 Constitutional: Yes: Well Nourished, No Distress, Calm Cardiovascular: Yes: WNL, Regular Rate and Rhythm Respiratory: Yes: WNL, Regular, CTA Bilaterally Gastrointestinal Inspection: Yes: WNL ...Palpate: Yes: Other (Abd soft, nt, nd Rectal exam: large external hemorrhoids , scant light brown stool, no blood) ...Rectal Exam: Yes: Other (external hemorrhoids, light brown stool, no blood) Labs: CBC, BMP 06/01/19 07:55 06/01/19 07:55 INR, PTT INR 1.03 (0.83-1.09) 05/31/19 13:17 Problem List - Problems (1) Rectal bleed Assessment/Plan: 84yo female h/o DM, HTN, ?thalassemia, L4 fracture presents with fatigue and reported rectal bleeding with severe microcytic anemia. Intermittent rectal bleeding noted in setting of hard stools/straining. Last colonoscopy in 10/2015 revealing diverticulosis and large internal/external hemorrhoids. No further overt bleeding and response noted to prbc transfusion. Suspected outlet/ hemorrhoidal bleeding however need to exclude other co-existing etiologies including source for possible occult bleed in setting of iron deficiency ( ferritin 28) including AVMs, malignancy. -Recommend colonoscopy +/- EGD tentatively tomorrow for further evaluation -Clear liquid diet today -Start golytely prep at 5pm -Dulcolax 20mg po at 5pm -NPOpMn -Continue to monitor Hb and for evidence of bleeding, transfuse as needed to maintain Hb >7 -PPI daily -If further overt bleeding with acute drop in Hb or hemodynamic instability in the interim, please obtain CTA/IR consult. Dr. Villatoro will resume follow up tomorrow and detetermine timing of endoscopy accordingly Code(s): K62.5 - HEMORRHAGE OF ANUS AND RECTUM
[2019-06-01] MEDS: LIDOCAINE PATCH REMOVAL MC SCH (11:27)
--- NOTE | 2019-06-01 11:29 | CONSULT ---
Consultation: CONSULT REQUEST: Heme/Onc HISTORY OF PRESENT ILLNESS: Patient is an 84 yo F with a PMHx of HTN, HLD, thal trait, hemmorhoids, recent L4 fracture, L sided humerous fx, and renal insufficiency, presented to the ED because of low glucose. She says her family checked her glucose, found it to be low, and sent her to the ED because they were worried. It is noted that patient was lethargic and groggy in the morning yesterday. In the ER she was found with a Hgb of 4.6/HCT 14.4. +FOBT. Iron of 17, iron saturation of 6. She is s/p 2 U PRBC. Patient says she's had hemorrhoids for years and also had a hemorrhoidectomy. She says she sees mild blood on toilet paper when she wipes sometimes, but on saturday she had 1 episode of BRBPR with blood in the toilet. Patient has no complaints at this time. She currently denies dizziness, nausea, vomiting, night sweats, chills, fevers, cough, chest pain, palpitations, abdominal pain. Colonoscopy- 15 years ago, normal Mammo-2018 Normal Surgeries: hysterectomy, hemmorhoidectomy Social hx: denies tobacco, alcohol Allergies: none REVIEW OF SYSTEMS: CONSTITUTIONAL: Absent: fever, chills, diaphoresis, generalized weakness, malaise, loss of appetite, weight change HEENT: Absent: rhinorrhea, nasal congestion, throat pain, throat swelling, difficulty swallowing, mouth swelling, ear pain, eye pain, visual changes CARDIOVASCULAR: Absent: chest pain, syncope, palpitations, irregular heart rate, lightheadedness , peripheral edema RESPIRATORY: Absent: cough, shortness of breath, dyspnea with exertion, orthopnea, wheezing, stridor, hemoptysis GASTROINTESTINAL: hematochezia Absent: abdominal pain, abdominal distension, nausea, vomiting, diarrhea, constipation, melena GENITOURINARY: Absent: dysuria, frequency, urgency, hesitancy, hematuria, flank pain, genital pain HEMATOLOGIC/IMMUNOLOGIC: Absent: easy bleeding, easy bruising, lymphadenopathy, frequent infections PHYSICAL EXAMINATION Vital Signs - 24 hr 06/01/19 06/01/19 06/01/19 05:30 08:24 08:25 Temperature 97.3 F L Pulse Rate 68 72 Pulse Rate [ Apical] Respiratory 18 20 Rate Blood Pressure 113/56 L 128/59 L Blood Pressure [Left Arm] O2 Sat by Pulse 94 L Oximetry (%) GENERAL: laying in bed comfortable. HEAD: Normal with no signs of trauma. EYES: Pupils equal, round and reactive to light, pale conjunctiva EARS, NOSE, THROAT: oropharynx clear without exudates. Dry mucous membranes NECK: supple without lymphadenopathy, JVD, or masses. LUNGS: Breath sounds equal, clear to auscultation bilaterally. No wheezes, and no crackles. HEART: Regular rate and rhythm, normal S1 and S2 without murmur, rub or gallop. ABDOMEN: Soft, nontender, not distended, normoactive bowel sounds, no guarding, no rebound, no masses. No hepatomegaly or splenomegaly. +scar lower abdomen from hysterectomy LOWER EXTREMITIES: 2+ pulses, No peripheral edema. BREAST: no palpable masses, no nipple discharge. ASSESSMENT/PLAN: #Iron Deficiency Anemia -likely GI source -positive FOBT -Iron deficient with low Iron saturation -s/p 2 U PRBC -Follow up GI Reccs Dispo: We will continue to follow the patient. Thank you for this consultative opportunity. Visit type - Emergency Visit Emergency Visit: Yes ED Registration Date: 05/31/19 Care time: The patient presented to the Emergency Department on the above date and was hospitalized for further evaluation of their emergent condition. - New Patient This patient is new to me today: Yes Date on this admission: 06/02/19 - Critical Care Critical Care patient: No ATTENDING PHYSICIAN STATEMENT I saw and evaluated the patient. I reviewed the resident's note and discussed the case with the resident. I agree with the resident's findings and plan as documented. SUBJECTIVE: OBJECTIVE: ASSESSMENT AND PLAN:
[2019-06-01] MEDS: INSULIN SLIDING SCALE (NOVOLOG) 1 VIAL SQ SCH ×3 (12:40→22:04)
--- NOTE | 2019-06-01 13:13 | CON.CARD ---
Consult Consult Specialty:: Cardiology Referred by:: Dr. Pyle Reason for Consultation:: Borderline TnI levels - History of Present Illness Chief Complaint: Fatigue History of Present Illness: The patient is an 84 year old female, with a significant PMH of IDDM, HTN, HLD, and a recent L4 fracture and left shoulder fracture, who presents to the emergency department BIBA because when she took her glucose level this morning it read as 55. Patient states she has been feeling lethargic and groggy for about 2 weeks after starting percocet (prescribed for her fractures) and this morning she found it very hard to get up. After taking her glucose level she drank some sugary fruit juice and her glucose came up to 85 though she was prompted to come in because she still felt very groggy and unlike herself. The patient denies chest pain, shortness of breath, headache and dizziness. Denies fever, chills, nausea, vomiting, diarrhea and constipation. Denies dysuria, frequency, urgency and hematuria. She was found to have a hemoglobin of 4 and was transfused 2UPRBCs. Creatinine also elevated in the mid 2s (baseline not known) and with borderline elevated, flat tnI w/ normal CK. Stool was guaiac + She was seen by GI- hx of diverticulosis and hemorrhoids, but EGD and colonoscopy planned to r/o other sources (AVMs, malignancy). She denies prior cardiac hx; was fairly active prior to recent fractures. Denies exertional CP, SOB, palps,syncope. She does have chronic LE edema. 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: Alzheimer's, CVA, Dementia, Migraine, Multiple Sclerosis, Peripheral Neuropathy, Parkinson's, Seizure, Syncope, TIA, Vertigo, Other Cardio/Vascular: Yes: HTN Pulmonary: No: Asthma, Bronchitis, Cancer, COPD, O2 Dependent, Pneumonia, Previously Intubated, Pulmonary Embolus, Pulmonary Fibrosis, Sleep Apnea, Other Gastrointestinal: No: Ascites, Cancer, Constipation, Crohn's Disease, Diverticulitis, Diverticulosis, Esophageal Varices, Gastritis, GERD, GI Bleed, Hemorrhoids, Hiatal Hernia, Inflamatory Bowel Disease, Irritable Bowel Disease, Pancreatitis, Peptic Ulcer Disease, Ulcerative Colitis, Other Hepatobiliary: No: Cirrhosis, Cholelithiasis, Cholecystitis, Choledocholithiasis , Hepatitis A, Hepatitis B, Hepatitis C, Other Renal/: No: Renal Failure, Renal Inusuff, BPH, Cancer, Hematuria, Hemodialysis , Neurogenic Bladder, Renal Calculi, UTI, Other Reproductive: No: Ectopic , Endometriosis, Fibroids, PID, Polycystic Ovary Syndrome, Postmenopausal, Other ...: No Heme/Onc: Yes: Anemia Musculoskeletal: Yes: Chronic low back pain Rheumatology: No: Fibromyalgia, Gout, Lupus, Rheumatoid Arthritis, Sarcoidosis, Vasculitis, Other Endocrine: Yes: Diabetes Mellitus - Alcohol/Substance Use Hx Alcohol Use: No History of Substance Use: reports: None - Smoking History Smoking history: Never smoked Have you smoked in the past 12 months: No - Social History ADL: Independent History of Recent Travel: No Home Medications - Allergies Allergies/Adverse Reactions: Allergies Allergy/AdvReac Type Severity Reaction Status Date / Time No Known Allergies Allergy Verified 05/31/19 12:41 - Home Medications Home Medications: Ambulatory Orders Amlodipine Besylate [Norvasc -] 10 mg PO DAILY 10/03/15 Ascorbate Calcium [Vitamin C] 500 mg PO DAILY 10/03/15 Atorvastatin Ca [Lipitor -] 40 mg PO HS 10/03/15 Calcium Carbonate/Vitamin D3 [Calcium 500 + Vit D3 400 Tab] 1 each PO BID Multivitamins [Tab-A-Vit -] 1 tab PO DAILY 10/03/15 Quinapril HCl [Accupril] 40 mg PO DAILY 10/03/15 Aspirin [Ecotrin] 81 mg PO DAILY 10/04/15 Atenolol/Chlorthalidone [Atenolol-Chlorthalidone 50-25] 1 each PO HS 10/04/15 Insulin Aspart [Novolog] 0 unit SQ ASDIR 09/18/18 Insulin Degludec [Tresiba Flextouch U-100] 34 unit SQ HS 09/18/18 Acetaminophen [Tylenol -] 500 mg PO Q6H PRN 05/18/19 Family Disease History - Family Disease History Family History: Unremarkable (no early CAD or SCD) Review of Systems - Review of Systems Constitutional: reports: Weakness Eyes: reports: No Symptoms HENT: reports: No Symptoms Neck: reports: No Symptoms Cardiovascular: reports: No Symptoms Respiratory: reports: No Symptoms Gastrointestinal: reports: Other (bright red blood per rectum few days ago) Musculoskeletal: denies: No Symptoms, Back Pain, Crepitus, Decreased ROM, Extremity Pain, Joint Pain, Joint Swelling, Muscle Pain, Muscle Cramps, Muscle Weakness, Other Integumentary: denies: No Symptoms, Blister, Bruising, Change in Color, Eczema, Erythema, Incision, Lesions, Lump, Pallor, Pruritis, Rash, Wound, Other Neurological: denies: No Symptoms, Change in LOC, Change in Speech, Confusion, Dizziness, Headache, Incoordination, Numbness, Parasthesia, Pre-Existing Deficit , Seizure, Syncope, Tremors, Unsteady Gait, Weakness, Other Endocrine: denies: No Symptoms, Excessive Sweating, Flushing, Increased Hunger, Increased Thirst, Intolerance to Cold, Intolerance to Heat, Unexplained Weight Gain, Unexplained Weight Loss, Other Hematology/Lymphatic: denies: No Symptoms, Easily Bruised, Excessive Bleeding, Swollen Glands, Other Psychiatric: denies: No Symptoms, Altered Sleep Pattern, Anxiety, Depression, Hallucinations, Panic, Paranoia, Suicidal, Other Vital Signs: Vital Signs Temperature 97.3 F L 06/01/19 05:30 Pulse Rate 72 06/01/19 08:24 Respiratory Rate 20 06/01/19 08:24 Blood Pressure 128/59 L 06/01/19 08:24 O2 Sat by Pulse Oximetry (%) 94 L 06/01/19 08:25 Constitutional: Yes: No Distress, Calm Eyes: Yes: Conjunctiva Clear HENT: Yes: Atraumatic Neck: Yes: Trachea Midline Respiratory: Yes: CTA Bilaterally Gastrointestinal: Yes: Soft (nt) Cardiovascular: Yes: Regular Rate and Rhythm JVD: No Carotid Bruit: No Heart Sounds: Yes: S1, S2 (rrr) Edema: Yes Edema: LLE: 1+ (venous stasis), RLE: 1+ (venous stasis) Neurological: Yes: Alert, Oriented ...Motor Strength: WNL - Other Data Labs, Other Data: CBC, BMP 06/01/19 07:55 06/01/19 07:55 INR, PTT INR 1.03 (0.83-1.09) 05/31/19 13:17 Troponin, BNP 05/31/19 05/31/19 05/31/19 14:06 14:06 14:06 Troponin I 0.02 B-Natriuretic Peptide 2673.1 H Cancelled 05/31/19 06/01/19 20:20 07:55 Troponin I 0.14 H 0.22 H B-Natriuretic Peptide Troponin, BNP 05/31/19 05/31/19 05/31/19 14:06 14:06 14:06 Troponin I 0.02 B-Natriuretic Peptide 2673.1 H Cancelled 05/31/19 06/01/19 20:20 07:55 Troponin I 0.14 H 0.22 H B-Natriuretic Peptide Laboratory Tests 05/31/19 05/31/19 05/31/19 14:06 14:06 14:06 WBC 10.7 H Hgb 4.6 L* Plt Count 191 Potassium Creatinine 2.8 H Creatine Kinase 29 Troponin I 0.02 05/31/19 06/01/19 06/01/19 20:20 07:55 07:55 WBC 8.8 Hgb 7.4 L Plt Count 179 Potassium 4.4 Creatinine 2.7 H Creatine Kinase Troponin I 0.14 H 06/01/19 07:55 WBC Hgb Plt Count Potassium Creatinine Creatine Kinase 56 Troponin I 0.22 H NSR 71bpm, no acute ST changes Echo: Pending Imaging - Results X-ray: Image Reviewed (no Infiltrate or effusion.) Cat Scan: Report Reviewed (No acute 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 Marked anemia, secondary to GI blood loss 2. Renal insufficiency, acute on chronic in setting of acute blood loss anemia, hypovolemia 3. Borderline elevated TnI: likely due to demand ischemia caused by profound anemia in setting of renal insufficiency 4. DM 5. Chronic HTN, now with hypotensive episodes in setting of #1 6. Fatigue/somnolence, probably multifactorial and due to anemia, CKD and opiate effect 7. Chronic LE edema, suspect component of venous stasis and possible diastolic dysfx REC: 1. Follow H/H, transfuse to Hb > 8 2. Hold BP meds for now as BP normal to low. 3. Echo for EF assessment. 4. Borderline TnI w/ nl CK, flat trend and non-ischemic ECG represents demand ischemia, not ACS. Hold ASA. Continue statin. Echo as above. 5. CV risk evaluation prior to endoscopy/colonoscopy: There are no absolute cardiac contraindications to upper endoscopy and colonoscopy for definitive diagnosis and treatment of her marked anemia requiring PRBCs. She is currently in NSR, with no clinical symptoms of angina, no aortic stenosis. 7. Will obtain LE venous duplex to r/o DVT.
--- NOTE | 2019-06-01 14:30 | CONSULT ---
Consult Consult Specialty:: Nephrology Reason for Consultation:: CKD - History of Present Illness Chief Complaint: low blood sugar History of Present Illness: Pt is an 84 year old female with pmhx of ckd, DM, HTN, HLD, chronic pancreatitis , L4 fracture and anemia who presents to the ER with low blood sugar. She had a value of 55 when she was home. She did feel light headed at the time. She complains of feeling fatigued after starting to take percocet for pain. She was found to have elevated creatinine and I was called to evaluate her. She has been following with Dr Hernandez for TIFFANY/ckd. She various scans done earlier in the year as part of her workup for abd pain. She denies dysuria or hematuria. She does have lower ext edema. She denies nsaid use. - History Source History Provided By: Patient, Family Member, Medical Record - Past Medical History Cardio/Vascular: Yes: HTN, Hyperlipdemia Renal/: Yes: Renal Inusuff ...: No Musculoskeletal: Yes: Chronic low back pain Endocrine: Yes: Diabetes Mellitus - Alcohol/Substance Use Hx Alcohol Use: No - Smoking History Smoking history: Never smoked Have you smoked in the past 12 months: No - Social History ADL: Independent History of Recent Travel: No Home Medications - Allergies Allergies/Adverse Reactions: Allergies Allergy/AdvReac Type Severity Reaction Status Date / Time No Known Allergies Allergy Verified 05/31/19 12:41 - Home Medications Home Medications: Ambulatory Orders Amlodipine Besylate [Norvasc -] 10 mg PO DAILY 10/03/15 Ascorbate Calcium [Vitamin C] 500 mg PO DAILY 10/03/15 Atorvastatin Ca [Lipitor -] 40 mg PO HS 10/03/15 Calcium Carbonate/Vitamin D3 [Calcium 500 + Vit D3 400 Tab] 1 each PO BID Multivitamins [Tab-A-Vit -] 1 tab PO DAILY 10/03/15 Quinapril HCl [Accupril] 40 mg PO DAILY 10/03/15 Aspirin [Ecotrin] 81 mg PO DAILY 10/04/15 Atenolol/Chlorthalidone [Atenolol-Chlorthalidone 50-25] 1 each PO HS 10/04/15 Insulin Aspart [Novolog] 0 unit SQ ASDIR 09/18/18 Insulin Degludec [Tresiba Flextouch U-100] 34 unit SQ HS 09/18/18 Acetaminophen [Tylenol -] 500 mg PO Q6H PRN 05/18/19 Family Disease History - Family Disease History Family History: Denies Review of Systems - Review of Systems Constitutional: reports: No Symptoms Eyes: reports: No Symptoms HENT: reports: No Symptoms Neck: reports: No Symptoms Cardiovascular: reports: Edema Respiratory: reports: SOB on Exertion Gastrointestinal: reports: No Symptoms Genitourinary: reports: No Symptoms Musculoskeletal: reports: Back Pain Integumentary: reports: No Symptoms Neurological: reports: No Symptoms Endocrine: reports: No Symptoms Hematology/Lymphatic: reports: No Symptoms Psychiatric: reports: No Symptoms Physical Exam Vital Signs: Vital Signs Temperature 97.3 F L 06/01/19 05:30 Pulse Rate 72 06/01/19 08:24 Respiratory Rate 20 06/01/19 08:24 Blood Pressure 128/59 L 06/01/19 08:24 O2 Sat by Pulse Oximetry (%) 94 L 06/01/19 08:25 Constitutional: Yes: Calm Eyes: Yes: Conjunctiva Clear HENT: Yes: Atraumatic Cardiovascular: Yes: S1, S2 Respiratory: Yes: CTA Bilaterally Gastrointestinal: Yes: Soft Renal/: Yes: WNL Musculoskeletal: Yes: Back Pain Edema: Yes Edema: LLE: 1+, RLE: 1+ Neurological: Yes: Oriented Psychiatric: Yes: Oriented Labs: CBC, BMP 06/01/19 07:55 06/01/19 07:55 Laboratory Tests 05/31/19 05/31/19 05/31/19 14:06 14:06 15:14 Hgb 4.6 L* Creatinine 2.8 H Stool Occult Blood Positive 06/01/19 06/01/19 07:55 07:55 Hgb 7.4 L Creatinine 2.7 H Stool Occult Blood Imaging - Results Chest X-ray: Report Reviewed Problem List - Problems (1) Anemia Code(s): D64.9 - ANEMIA, UNSPECIFIED Qualifiers: Anemia type: unspecified type Qualified Code(s): D64.9 - Anemia, unspecified (2) Back pain Code(s): M54.9 - DORSALGIA, UNSPECIFIED Qualifiers: Back pain laterality: left Sciatica presence: with sciatica Sciatica laterality: sciatica of left side (3) Hypoglycemia Code(s): E16.2 - HYPOGLYCEMIA, UNSPECIFIED (4) Renal insufficiency Code(s): N28.9 - DISORDER OF KIDNEY AND URETER, UNSPECIFIED Assessment/Plan Current Medications Generic Name Dose Route Start Last Admin Trade Name Bea PRN Reason Stop Dose Admin Acetaminophen 1,000 mg 05/31/19 17:11 Ofirmev Injection - IVPB Q6H PRN PAIN LEVEL 6-10 Atorvastatin Calcium 40 mg 06/01/19 22:00 Lipitor - PO HS FRANCESCO Bisacodyl 20 mg 06/02/19 17:00 Dulcolax - PO 06/02/19 17:01 ONCE ONE Pantoprazole Sodium 80 mg/ 100 mls @ 10 mls/hr 05/31/19 16:30 06/01/19 13:45 Sodium Chloride IVPB Not Given Q10H FRANCESCO 8 MG/HR Insulin Aspart 1 vial 06/01/19 11:00 06/01/19 12:40 Novolog Vial Sliding Scale - SQ Not Given ACHS FRANCESCO Protocol Lidocaine 1 patch 05/31/19 22:00 05/31/19 22:06 Lidoderm Patch - TP 1 patch HS FRANCESCO Administration Miscellaneous 1 each 06/01/19 10:00 06/01/19 11:27 Lidoderm Patch Removal MC 1 each DAILY FRANCESCO Administration Polyethylene Glycol 17 gm 06/01/19 14:00 Miralax (For Daily Use) - PO TID FRANCESCO Polyethylene Glycol/Electrolytes 4,000 ml 06/02/19 09:00 Golytely Solution - PO 06/02/19 09:01 ONCE ONE 84 year old female with pmhx of ckd, DM, HTN, HLD, chronic pancreatitis, L4 fracture and anemia presents with hypoglycemia. Impression 1. CKD 2. DM 3. HTN 4. anemia 5. L4 fracture 6. HLD 7. chronic pancreatitis Plan - will order renal ultrasound - will call Dr Hernandez to see what workup was done and to check baseline - per family the working diagnosis is ATN - avoid nsaids - avoid nephrotoxins - check ua - monitor blood sugar
--- NOTE | 2019-06-01 15:35 | ECHO ---
Name: FLAVIA GOMEZ Exam:Adult Echocardiogram Study Date: 06/01/2019 02:33 PM Age: 84 yrs Reason For Study: elevated TnI Height: 63 in Weight: 164 lb BSA: 1.8 m2 MMode/2D Measurements & Calculations IVSd: 0.77 cm Ao root diam: 3.1 cm LVIDd: 4.6 cm LA dimension: 4.2 cm LVIDs: 3.0 cm ACS: 0.94 cm LVPWd: 0.84 cm IVSs: 1.0 cm LVPWs: 1.3 cm EDV(Teich): 99.6 ml ESV(Teich): 34.5 ml Doppler Measurements & Calculations MV E max julio: 136.0 cm/sec Ao V2 max: 175.1 cm/sec MV A max julio: 108.6 cm/sec Ao max P.3 mmHg MV E/A: 1.3 Ao V2 mean: 121.6 cm/sec Ao mean P.6 mmHg Ao V2 VTI: 43.7 cm MR max julio: 480.5 cm/sec TR max julio: 336.6 cm/sec MR max P.4 mmHg TR max P.4 mmHg Med Peak E' Julio: 7.3 cm/sec Med E/e': 18.5 Lat Peak E' Julio: 7.1 cm/sec Lat E/e': 19.1 Procedure A complete two-dimensional transthoracic echocardiogram was performed (2D, M-mode, Doppler and color flow Doppler). Left Ventricle The left ventricle is normal in size. Left ventricular systolic function is normal. Ejection Fraction = 60- 65%. No regional wall motion abnormalities noted. Right Ventricle The right ventricle is normal size. The right ventricular systolic function is normal. Atria The left atrium is mildly dilated. Right atrial size is normal. Mitral Valve There is mild mitral annular calcification. There is mild mitral regurgitation. Tricuspid Valve The tricuspid valve is normal in structure and function. There is mild tricuspid regurgitation. Pulmo nary artery systolic pressure is at least 54 mmHg assuming RA pressure of 3 mmHg. Aortic Valve There is mild aortic sclerosis.;. No aortic regurgitation is present. Pulmonic Valve The pulmonic valve is not well visualized. Great Vessels The aortic root is normal size. Pericardium/Pleura There is no pericardial effusion. Interpretation Summary The left ventricle is normal in size. Left ventricular systolic function is normal. No regional wall motion abnormalities noted. Ejection Fraction = 60-65%. The right ventricular systolic function is normal. The left atrium is mildly dilated. Right atrial size is normal. There is mild mitral annular calcification. There is mild mitral regurgitation. There is mild tricuspid regurgitation. Pulmonary artery systolic pressure is at least 54 mmHg assuming RA pressure of 3 mmHg There is mild aortic sclerosis.; No aortic regurgitation is present. There is no pericardial effusion. Yovani Kenny MD 06/01/2019 03:34 PM
[2019-06-01] MEDS: POLYETHYLENE GLYCOL 3350 119 GM BTL PO SCH ×2 (15:47→22:04)
[2019-06-01] MEDS ORDERED: PEG 3350/NA SULF BICARB CL/KCL 4000 ML SOLN.RECON PO ONE (17:00)
[2019-06-01] MEDS ORDERED: BISACODYL 5 MG TABLET.DR (FP) PO ONE (17:00)
[2019-06-01] MEDS: ACETAMINOPHEN 1000 MG/100 ML VIAL (NON FORMULARY) IVPB PRN (18:49)
[2019-06-01] MEDS: LIDOCAINE 5% TOPICAL PATCH TP SCH ×2 (18:49→22:04)
--- NOTE | 2019-06-01 20:33 | PN ---
Teaching Attending Note Name of Resident: Terrell Em ATTENDING PHYSICIAN STATEMENT I saw and evaluated the patient. I reviewed the resident's note and discussed the case with the resident. I agree with the resident's findings and plan as documented. 84 y/o lady with a PMHx of HTN, HLD, thalassemia trait, hemorrhoids, recent L4 fracture, L sided humerous fx, and renal insufficiency, presented to the ED because of low glucose.It is noted that patient was lethargic the prior day. In the ER she was found with a Hgb of 4.6/HCT 14.4. +FOBT. Iron of 17, iron saturation of 6. She is s/p 2 U PRBC. Patient says she's had hemorrhoids for years and also had a hemorrhoidectomy. On Tuesday 05/29 she had 1 episode of BRBPR with a large amount of blood in the toilet . SUBJECTIVE: Her only complaint is pain in her back secondary to her prior fracture. No further bleeding reported OBJECTIVE: Last Vital Signs Temp Pulse Resp BP Pulse Ox 97.5 F L 77 18 148/66 94 L 06/01/19 17:00 06/01/19 17:00 06/01/19 17:00 06/01/19 17:00 06/01/19 08:25 General: NAD. Pleasant. NT.ND HEENT: Dry mucous membranes. CVS: S1, S2 Lungs: CTAB (anterior) Abdomen: Soft, NT, ND Extremities: 1-2+ edema Psych: Alert, oriented conversant Skin: pale Neuro: moves all extremities 06/01/19 07:55 06/01/19 07:55 ASSESSMENT AND PLAN: 84 y/o lady with PMH HTN,HLD, Thalassemia trait, recent L4 fracture, renal insufficiency, presents due to an acute hemorrhoidal bleed with a Hb of 4.6 Recommend: 1) Agree with pRBC transfusion (received 2 units) with Hb 7.4. Agree with keeping Hb above 8-10 given possible demand ischemia. 2) Agree with GI evaluation, PPI drip, Colonoscopy/EGD per GI team. 3) Limited utility of iron profile other baseline anemia labs given recent transfusion. 4) Avoid antiplatelet agents, NSAIDs, anticoagulants given severe hemorrhagic event. 5) Renal insufficiency. ATN per family upon discussion with Manufacturing Coordinator. 6) Basic coagulation profile within normal limits. 7) Platelet dysfunction due to uremia should be considered in this case. It has been proposed that rheological factors link anemia with platelet function. When hematocrit is closer to 30 red blood cells occupy the center of the vessel and platelets the periphery, closer to the endothelium where they can quickly bind to the sites of injury and form a platelet plug. Consider keeping Hb closer to 10. If refractory bleeding ensues will consider cryoprecipitate (she is not a candidate for desmopressin given demand ischemia). 8) Thank you for this consultation.
--- NOTE | 2019-06-01 21:44 | PN ---
Progress Note (short form) - Note Progress Note: GI Note: Dr Fregoso's help is appreciated. I have discussed doing EGD and colonoscopy under one anesthesia as well as rubber band ligation of hemorrhoids with Mindy. I informed her of the potential for such complications as perforation and hemorrhage. She has signed an informed consent. I have scheduled it for 06/03. Prep instructions written.
[2019-06-01] MEDS: ATORVASTATIN CA 40 MG TABLET (FP) PO SCH (22:04)
[2019-06-02] MEDS: ACETAMINOPHEN 1000 MG/100 ML VIAL (NON FORMULARY) IVPB PRN ×2 (01:00→13:51)
[2019-06-02] MEDS: INSULIN SLIDING SCALE (NOVOLOG) 1 VIAL SQ SCH ×4 (06:54→22:15)
[2019-06-02] MEDS: POLYETHYLENE GLYCOL 3350 119 GM BTL PO SCH ×3 (06:54→22:15)
[2019-06-02 07:45] LABS: BASO % 0.8 % (0-2.0); EOS % 2.1 % (0-4.5); HEMATOCRIT 24.3 % (32.4-45.2); HEMOGLOBIN 8.7 GM/dL (10.7-15.3); LYMPH % 12.7 % (8-40); MCH 28.5 pg (25.7-33.7); MCHC 35.6 g/dl (32.0-36.0); MEAN CELL VOLUME 79.9 fl (80-96); MEAN PLT VOLUME 8.8 fl (7.5-11.1); MONO % 7.6 % (3.8-10.2); NEUT % 76.8 % (42.8-82.8); PLATELET COUNT 234 K/MM3 (134-434); RBC 3.04 M/mm3 (3.60-5.2); RDW 19.4 % (11.6-15.6); RETICULOCYTES 2.48 % (0.5-1.5); WHITE BLOOD COUNT 10.6 K/mm3 (4.0-10.0)
[2019-06-02] MEDS: PANTOPRAZOLE SODIUM 80 MG in SODIUM CHLORIDE 100 ML IVPB SCH (08:30)
[2019-06-02 08:45] LABS: ALBUMIN 2.6 g/dl (3.4-5.0); BILIRUBIN,TOTAL 0.4 mg/dL (0.2-1); BLOOD UREA NITROGEN 68.9 mg/dL (7-18); CALCIUM 8.5 mg/dL (8.5-10.1); CREATININE 2.8 mg/dL (0.55-1.3); POTASSIUM 4.6 mmol/L (3.5-5.1); TOT PROT 5.9 g/dl (6.4-8.2)
[2019-06-02] MEDS ORDERED: PEG 3350/NA SULF BICARB CL/KCL 4000 ML SOLN.RECON PO ONE (09:00)
[2019-06-02] MEDS: LIDOCAINE PATCH REMOVAL MC SCH (09:32)
--- NOTE | 2019-06-02 12:36 | PN ---
Progress Note (short form) - Note Progress Note: s: no chest pain, palps, dizziness, dyspnea. complains of back pain Current Medications Generic Name Dose Route Start Last Admin Trade Name Bea PRN Reason Stop Dose Admin Acetaminophen 1,000 mg 05/31/19 17:11 06/02/19 01:00 Ofirmev Injection - IVPB 1,000 mg Q6H PRN Administration PAIN LEVEL 6-10 Atorvastatin Calcium 40 mg 06/01/19 22:00 06/01/19 22:04 Lipitor - PO 40 mg HS [facility] Administration Bisacodyl 20 mg 06/02/19 17:00 Dulcolax - PO 06/02/19 17:01 ONCE ONE Pantoprazole Sodium 80 mg/ 100 mls @ 10 mls/hr 05/31/19 16:30 06/02/19 08:30 Sodium Chloride IVPB 10 mls/hr Q10H [facility] Administration 8 MG/HR Insulin Aspart 1 vial 06/01/19 11:00 06/02/19 06:54 Novolog Vial Sliding Scale - SQ Not Given ACHS [facility] Protocol Lidocaine 1 patch 05/31/19 22:00 06/01/19 22:04 Lidoderm Patch - TP Not Given HS [facility] Miscellaneous 1 each 06/01/19 10:00 06/02/19 09:32 Lidoderm Patch Removal MC 1 each DAILY [facility] Administration Polyethylene Glycol 17 gm 06/01/19 14:00 06/02/19 06:54 Miralax (For Daily Use) - PO Not Given TID [facility] Vital Signs Period Temp Pulse Resp BP Sys/Escalante Pulse Ox Last 24 Hr 97.1 F-98.0 F 74-82 18-18 131-153/55-98 92-92 Constitutional: Yes: No Distress, Calm Eyes: Yes: Conjunctiva Clear HENT: Yes: Atraumatic Neck: Yes: Trachea Midline Respiratory: Yes: CTA Bilaterally Gastrointestinal: Yes: Soft (nt) Cardiovascular: Yes: Regular Rate and Rhythm JVD: No Carotid Bruit: No Heart Sounds: Yes: S1, S2 (rrr) Edema: Yes Edema: LLE: 1+ (venous stasis), RLE: 1+ (venous stasis) Neurological: Yes: Alert, Oriented ...Motor Strength: WNL NSR 71bpm, no acute ST changes Echo: nl LV function, nl RV, PASP at least 54 mmHg, mild MR, mild TR, LA mildly dilated tele: sinus Imaging - Results X-ray: Image Reviewed (no Infiltrate or effusion.) Cat Scan: Report Reviewed (No acute INSPECTOR FLOOR event, old infarcts.) Assessment/Plan IMP: 1. Marked anemia, secondary to GI blood loss 2. Renal insufficiency, acute on chronic in setting of acute blood loss anemia, hypovolemia 3. Borderline elevated TnI: likely due to demand ischemia caused by profound anemia in setting of renal insufficiency 4. DM 5. Chronic HTN, now with hypotensive episodes in setting of #1 6. Fatigue/somnolence, probably multifactorial and due to anemia, CKD and opiate effect 7. Chronic LE edema, suspect component of venous stasis and possible diastolic dysfx REC: 1. Follow H/H, transfuse to Hb > 8 2. Hold BP meds for now as BP normal to low. 3. Echo with nl EF 4. Borderline TnI w/ nl CK, flat trend and non-ischemic ECG likely demand ischemia, not ACS. Hold ASA. Continue statin. 5. CV risk evaluation prior to endoscopy/colonoscopy: There are no absolute cardiac contraindications to upper endoscopy and colonoscopy for definitive diagnosis and treatment of her marked anemia requiring PRBCs. She is currently in NSR, with no clinical symptoms of angina, no aortic stenosis.
--- NOTE | 2019-06-02 12:45 | PN ---
Progress Note, Physician History of Present Illness: Pt seen and examined at bedside. She is awake and alert. She denies shortness of breath. She does have back pain. - Current Medication List Current Medications: Active Medications Acetaminophen (Ofirmev Injection -) 1,000 mg IVPB Q6H PRN PRN Reason: PAIN LEVEL 6-10 Last Admin: 06/02/19 01:00 Dose: 1,000 mg Atorvastatin Calcium (Lipitor -) 40 mg PO [facility] Last Admin: 06/01/19 22:04 Dose: 40 mg Bisacodyl (Dulcolax -) 20 mg PO ONCE ONE Stop: 06/02/19 17:01 Pantoprazole Sodium 80 mg/ (Sodium Chloride) 100 mls @ 10 mls/hr IVPB Q10H [facility] Last Admin: 06/02/19 08:30 Dose: 10 mls/hr Insulin Aspart (Novolog Vial Sliding Scale -) 1 vial SQ ACHS [facility]; Protocol Last Admin: 06/02/19 06:54 Dose: Not Given Lidocaine (Lidoderm Patch -) 1 patch TP [facility] Last Admin: 06/01/19 22:04 Dose: Not Given Miscellaneous (Lidoderm Patch Removal) 1 each MC DAILY [facility] Last Admin: 06/02/19 09:32 Dose: 1 each Polyethylene Glycol (Miralax (For Daily Use) -) 17 gm PO TID [facility] Last Admin: 06/02/19 06:54 Dose: Not Given - Objective Vital Signs: Vital Signs Temperature 97.8 F 06/02/19 10:00 Pulse Rate 80 06/02/19 10:00 Respiratory Rate 18 06/02/19 10:00 Blood Pressure 151/98 06/02/19 10:00 O2 Sat by Pulse Oximetry (%) 92 L 06/02/19 09:00 Constitutional: Yes: Calm Eyes: Yes: Conjunctiva Clear HENT: Yes: Atraumatic Cardiovascular: Yes: S1, S2 Respiratory: Yes: On Nasal O2 Gastrointestinal: Yes: Soft Genitourinary: Yes: WNL Musculoskeletal: Yes: Back Pain Edema: Yes Edema: LLE: Trace, RLE: Trace Neurological: Yes: Oriented Psychiatric: Yes: Oriented Labs: CBC, BMP 06/02/19 05:50 06/02/19 05:50 INR, PTT INR 1.03 (0.83-1.09) 05/31/19 13:17 Problem List - Problems (1) Anemia Code(s): D64.9 - ANEMIA, UNSPECIFIED Qualifiers: Qualified Code(s): D64.9 - Anemia, unspecified (2) Back pain Code(s): M54.9 - DORSALGIA, UNSPECIFIED (3) Hypoglycemia Code(s): E16.2 - HYPOGLYCEMIA, UNSPECIFIED (4) Renal insufficiency Code(s): N28.9 - DISORDER OF KIDNEY AND URETER, UNSPECIFIED Assessment/Plan Current Medications Generic Name Dose Route Start Last Admin Trade Name Freq PRN Reason Stop Dose Admin Acetaminophen 1,000 mg 05/31/19 17:11 06/02/19 01:00 Ofirmev Injection - IVPB 1,000 mg Q6H PRN Administration PAIN LEVEL 6-10 Atorvastatin Calcium 40 mg 06/01/19 22:00 06/01/19 22:04 Lipitor - PO 40 mg HS [facility] Administration Bisacodyl 20 mg 06/02/19 17:00 Dulcolax - PO 06/02/19 17:01 ONCE ONE Pantoprazole Sodium 80 mg/ 100 mls @ 10 mls/hr 05/31/19 16:30 06/02/19 08:30 Sodium Chloride IVPB 10 mls/hr Q10H [facility] Administration 8 MG/HR Insulin Aspart 1 vial 06/01/19 11:00 06/02/19 06:54 Novolog Vial Sliding Scale - SQ Not Given ACHS [facility] Protocol Lidocaine 1 patch 05/31/19 22:00 06/01/19 22:04 Lidoderm Patch - TP Not Given HS [facility] Miscellaneous 1 each 06/01/19 10:00 06/02/19 09:32 Lidoderm Patch Removal MC 1 each DAILY [facility] Administration Polyethylene Glycol 17 gm 06/01/19 14:00 06/02/19 06:54 Miralax (For Daily Use) - PO Not Given TID [facility] 84 year old female with pmhx of ckd, DM, HTN, HLD, chronic pancreatitis, L4 fracture and anemia presents with hypoglycemia. 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 CKD / TIFFANY with ATN as working diagnosis 2. DM 3. HTN 4. anemia 5. L4 fracture 6. HLD 7. chronic pancreatitis Plan - reviewed and noted outpt records. Discussed case with Dr Hernandez - cont to monitor renal function - hematology eval for elevated light chains - avoid nsaids - anemia workup in progress - avoid nephrotoxins - check ua - pt will follow with Dr Hernandez after discharge
--- NOTE | 2019-06-02 13:23 | PN ---
Progress Note (short form) - Note Progress Note: C/o severe back pain. 2 daughters and the at bedside. Vital Signs Temp 97.8 F 06/02/19 10:00 Pulse 80 06/02/19 10:00 Resp 18 06/02/19 10:00 BP 151/98 06/02/19 10:00 Pulse Ox 92 L 06/02/19 09:00 Intake & Output 06/01/19 06/02/19 06/02/19 23:59 11:59 23:59 Intake Total 300 110 Balance 300 110 Intake: IVPB 110 Oral 300 Other: Voiding Method Bedside Commode Bedside Commode # Unmeasured Voids Void 2 Bowel Movement No Awake, alert, pale Pain in the back Lungs are clear Heart S1S2 regular Abdomen soft, NT Ext +2 edema Laboratory Results - last 24 hr 06/01/19 06/01/19 06/01/19 07:55 18:36 22:02 WBC RBC Hgb Hct MCV MCH MCHC RDW Plt Count MPV Absolute Neuts (auto) Neutrophils % Lymphocytes % Monocytes % Eosinophils % Basophils % Nucleated RBC % Retic Count Haptoglobin 269 H Sodium Potassium Chloride Carbon Dioxide Anion Gap BUN Creatinine Est GFR (CKD-EPI)AfAm Est GFR (CKD-EPI)NonAf POC Glucometer 160 192 Random Glucose Calcium Total Bilirubin AST ALT Alkaline Phosphatase Total Protein Albumin 06/02/19 06/02/19 06/02/19 05:50 05:50 06:51 WBC 10.6 H RBC 3.04 L Hgb 8.7 L Hct 24.3 L MCV 79.9 L MCH 28.5 D MCHC 35.6 RDW 19.4 H Plt Count 234 D MPV 8.8 Absolute Neuts (auto) 8.1 H Neutrophils % 76.8 Lymphocytes % 12.7 Monocytes % 7.6 Eosinophils % 2.1 D Basophils % 0.8 Nucleated RBC % 0 Retic Count 2.48 H Haptoglobin Sodium 140 Potassium 4.6 Chloride 112 H Carbon Dioxide 17 L Anion Gap 11 BUN 68.9 H Creatinine 2.8 H Est GFR (CKD-EPI)AfAm 17.13 Est GFR (CKD-EPI)NonAf 14.78 POC Glucometer 93 Random Glucose 96 Calcium 8.5 Total Bilirubin 0.4 AST 20 ALT 26 Alkaline Phosphatase 107 Total Protein 5.9 L Albumin 2.6 L 06/02/19 12:24 WBC RBC Hgb Hct MCV MCH MCHC RDW Plt Count MPV Absolute Neuts (auto) Neutrophils % Lymphocytes % Monocytes % Eosinophils % Basophils % Nucleated RBC % Retic Count Haptoglobin Sodium Potassium Chloride Carbon Dioxide Anion Gap BUN Creatinine Est GFR (CKD-EPI)AfAm Est GFR (CKD-EPI)NonAf POC Glucometer 119 Random Glucose Calcium Total Bilirubin AST ALT Alkaline Phosphatase Total Protein Albumin Current Active Problems Problem Status Onset Anemia Acute Back pain Acute Cerebrovascular accident (CVA) Acute Elevated troponin I level Acute Hypoglycemia Acute Hypotension Acute Prophylactic measure Acute Rectal bleed Acute Renal insufficiency Acute Symptomatic anemia Acute Plan Neurosurgery consult Pain management EGD/Colonoscopy / hemorrhoidectomy tomorrow Problem List - Problems (1) Back pain Code(s): M54.9 - DORSALGIA, UNSPECIFIED Qualifiers: Back pain laterality: left Sciatica presence: with sciatica Sciatica laterality: sciatica of left side (2) Hypoglycemia Code(s): E16.2 - HYPOGLYCEMIA, UNSPECIFIED (3) Renal insufficiency Code(s): N28.9 - DISORDER OF KIDNEY AND URETER, UNSPECIFIED (4) Symptomatic anemia Code(s): D64.9 - ANEMIA, UNSPECIFIED (5) Elevated troponin I level Code(s): R74.8 - ABNORMAL LEVELS OF OTHER SERUM ENZYMES (6) Cerebrovascular accident (CVA) Code(s): I63.9 - CEREBRAL INFARCTION, UNSPECIFIED Qualifiers: Laterality of affected vessel: unspecified
[2019-06-02] MEDS ORDERED: BISACODYL 5 MG TABLET.DR (FP) PO ONE (17:00)
[2019-06-02] MEDS ORDERED: MAGNESIUM CITRATE 300 ML BOTTLE PO ONE (19:36)
--- NOTE | 2019-06-02 19:36 | PN.GI ---
GI Progress Note Subjective: GI NOte: Just 1/[address] through [place] and struggling. Will order Citroma. She is now opting for rubber band ligation of her internal hemorrhoids with her family present. - Objective Vital Signs: Vital Signs Temperature 97.8 F 06/02/19 10:00 Pulse Rate 80 06/02/19 10:00 Respiratory Rate 18 06/02/19 10:00 Blood Pressure 151/98 06/02/19 10:00 O2 Sat by Pulse Oximetry (%) 92 L 06/02/19 09:00 Laboratory Tests 05/31/19 06/02/19 06/02/19 13:17 05:50 05:50 WBC 10.6 H Hgb 8.7 L Hct 24.3 L MCV 79.9 L Plt Count 234 D PT with INR 12.20 BUN 68.9 H Creatinine 2.8 H Constitutional: Anxious Gastrointestinal Inspection: Yes: Distention ...Auscultate: Yes: Hyperactive Bowel Sounds ...Palpate: Yes: Soft, Other (nontender) Labs: CBC, BMP 06/02/19 05:50 06/02/19 05:50 INR, PTT INR 1.03 (0.83-1.09) 05/31/19 13:17 Assessment/Plan Assessment: - Although her over rectal bleeding suggests a hemorrhoidal origin her profound anemia suggest an alternative etiology so an EGD and a colonoscopy are planned. Plan: -- For EGD and colonoscopy tomorrow to determine source of profound anemia -- If her hemorrhoids are large enough to benefit then rubber band ligation will be undertaken Problem List - Problems (1) Rectal bleed Assessment/Plan: Although her over rectal bleeding suggests a hemorrhoidal origin her profound anemia suggest an alternative etiology so an EGD and a colonoscopy are planned. If her hemorrhoids are large enough to benefit then rubber band ligation will be undertaken. Code(s): K62.5 - HEMORRHAGE OF ANUS AND RECTUM (2) Anemia Code(s): D64.9 - ANEMIA, UNSPECIFIED Qualifiers: Anemia type: unspecified type Qualified Code(s): D64.9 - Anemia, unspecified (3) Renal insufficiency Code(s): N28.9 - DISORDER OF KIDNEY AND URETER, UNSPECIFIED (4) Diabetes mellitus Code(s): E11.9 - TYPE 2 DIABETES MELLITUS WITHOUT COMPLICATIONS (5) Chronic pancreatitis Code(s): K86.1 - OTHER CHRONIC PANCREATITIS
[2019-06-02] MEDS: LIDOCAINE 5% TOPICAL PATCH TP SCH (22:14)
[2019-06-02] MEDS: ATORVASTATIN CA 40 MG TABLET (FP) PO SCH (22:15)
[2019-06-02] MEDS: PANTOPRAZOLE SODIUM 40 MG VIAL IVPUSH SCH (22:16)
[2019-06-03] MEDS: INSULIN SLIDING SCALE (NOVOLOG) 1 VIAL SQ SCH ×4 (06:35→22:03)
[2019-06-03] MEDS: POLYETHYLENE GLYCOL 3350 119 GM BTL PO SCH (06:35)
[2019-06-03 07:51] LABS: ALBUMIN 2.6 g/dl (3.4-5.0); BILIRUBIN,TOTAL 0.5 mg/dL (0.2-1); BLOOD UREA NITROGEN 62.2 mg/dL (7-18); CALCIUM 8.7 mg/dL (8.5-10.1); CREATININE 2.6 mg/dL (0.55-1.3); POTASSIUM 3.6 mmol/L (3.5-5.1); TOT PROT 5.9 g/dl (6.4-8.2)
--- NOTE | 2019-06-03 08:23 | PN ---
Progress Note, Physician Chief Complaint: Still left LLE pain, though improved. Awaiting EGD/colonoscopy today History of Present Illness: DM 2 on Insulin HTN CKD recently worsened and saw by Dr Dee. 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 Macular degeneration. HLD - Current Medication List Current Medications: Active Medications Acetaminophen (Ofirmev Injection -) 1,000 mg IVPB Q6H PRN PRN Reason: PAIN LEVEL 6-10 Last Admin: 06/02/19 13:51 Dose: 1,000 mg Atorvastatin Calcium (Lipitor -) 40 mg PO HS [facility] Last Admin: 06/02/19 22:15 Dose: 40 mg Insulin Aspart (Novolog Vial Sliding Scale -) 1 vial SQ ACHS [facility]; Protocol Last Admin: 06/03/19 06:35 Dose: Not Given Lidocaine (Lidoderm Patch -) 1 patch TP HS [facility] Last Admin: 06/02/19 22:14 Dose: 1 patch Miscellaneous (Lidoderm Patch Removal) 1 each MC DAILY [facility] Last Admin: 06/02/19 09:32 Dose: 1 each Pantoprazole Sodium (Protonix Iv) 40 mg IVPUSH BID [facility] Last Admin: 06/02/19 22:16 Dose: 40 mg Polyethylene Glycol (Miralax (For Daily Use) -) 17 gm PO TID [facility] Last Admin: 06/03/19 06:35 Dose: Not Given - Objective Vital Signs: Vital Signs Temperature 97.5 F L 06/03/19 02:00 Pulse Rate 82 06/03/19 02:00 Respiratory Rate 82 H 06/03/19 02:00 Blood Pressure 161/7 L 06/03/19 02:00 O2 Sat by Pulse Oximetry (%) 95-96%RA 06/02/19 21:00 Constitutional: Yes: Anxious, Mild Distress Eyes: Yes: Conjunctiva Clear, EOM Intact HENT: Yes: Atraumatic, Normocephalic Cardiovascular: Yes: Regular Rate and Rhythm, S1, S2 Respiratory: Yes: Regular, CTA Bilaterally Gastrointestinal: Yes: Normal Bowel Sounds, Soft. No: Palpable Mass, Tenderness ...Rectal Exam: Yes: Deferred Genitourinary: No: Anuria Breast(s): Yes: WNL Musculoskeletal: Yes: Back Pain Extremities: Yes: Other (LLE pain) Peripheral Pulses WNL: Yes Neurological: Yes: Alert, Oriented. No: Aphasia, Seizure Psychiatric: Yes: WNL Labs: CBC, BMP 06/03/19 06:20 INR, PTT INR 1.03 (0.83-1.09) 05/31/19 13:17 Laboratory Results - last 24 hr 06/02/19 06/02/19 06/02/19 12:24 17:35 22:12 Sodium Potassium Chloride Carbon Dioxide Anion Gap BUN Creatinine Est GFR (CKD-EPI)AfAm Est GFR (CKD-EPI)NonAf POC Glucometer 119 81 143 Random Glucose Calcium Total Bilirubin AST ALT Alkaline Phosphatase Total Protein Albumin 06/03/19 06/03/19 06:00 06:20 Sodium 145 Potassium 3.6 Chloride 114 H Carbon Dioxide 20 L Anion Gap 11 BUN 62.2 H Creatinine 2.6 H Est GFR (CKD-EPI)AfAm 18.74 Est GFR (CKD-EPI)NonAf 16.17 POC Glucometer 107 Random Glucose 103 Calcium 8.7 Total Bilirubin 0.5 AST 27 ALT 28 Alkaline Phosphatase 111 Total Protein 5.9 L Albumin 2.6 L Problem List - Problems (1) Back pain Assessment/Plan: Tylenol for pain, Lidoderm topically Brace ordered Seen by neurosurgeon. Code(s): M54.9 - DORSALGIA, UNSPECIFIED Qualifiers: Back pain laterality: left Sciatica presence: with sciatica Sciatica laterality: sciatica of left side (2) Hypoglycemia Assessment/Plan: Long acting Insulin was D/C until she starts eating. IV D5 BGM Insulin coverage. Code(s): E16.2 - HYPOGLYCEMIA, UNSPECIFIED (3) Renal insufficiency Assessment/Plan: BUN and creat stable Possibly ATN after an episode of hypoglycemia. Continue IV hydration Code(s): N28.9 - DISORDER OF KIDNEY AND URETER, UNSPECIFIED (4) Symptomatic anemia Assessment/Plan: Check H/H PRBC Tx Hematology consult Anemia w/u Code(s): D64.9 - ANEMIA, UNSPECIFIED (5) Elevated troponin I level Assessment/Plan: Patient was seen by cardiology Episode of hypotension, anemia resulted in demand ischemia. 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
[2019-06-03] MEDS: PANTOPRAZOLE SODIUM 40 MG VIAL IVPUSH SCH ×2 (09:49→22:04)
[2019-06-03] MEDS: LIDOCAINE PATCH REMOVAL MC SCH (09:52)
[2019-06-03 09:58] LABS: BASO % 0.7 % (0-2.0); EOS % 0.9 % (0-4.5); HEMATOCRIT 25.9 % (32.4-45.2); HEMOGLOBIN 8.5 GM/dL (10.7-15.3); LYMPH % 11.1 % (8-40); MCH 24.3 pg (25.7-33.7); MEAN CELL VOLUME 74.2 fl (80-96); MEAN PLT VOLUME 8.3 fl (7.5-11.1); NEUT % 79.3 % (42.8-82.8); PLATELET COUNT 233 K/MM3 (134-434); RBC 3.49 M/mm3 (3.60-5.2); RDW 21.7 % (11.6-15.6); WHITE BLOOD COUNT 10.7 K/mm3 (4.0-10.0)
[2019-06-03 10:03] LABS: MCHC 32.8 g/dl (32.0-36.0)
[2019-06-03] MEDS ORDERED: LIDOCAINE HCL 2% JELLY 10 ML CARTRIDGE TP ONE (12:25)
[2019-06-03] MEDS ORDERED: LIDOCAINE HCL 2% JELLY 10 ML CARTRIDGE ONE (12:28)
--- NOTE | 2019-06-03 13:47 | PN ---
Progress Note, Physician History of Present Illness: Pt seen and examined at bedside. She is awake and alert. She just had the endoscopy. - Current Medication List Current Medications: Active Medications Acetaminophen (Ofirmev Injection -) 1,000 mg IVPB Q6H PRN PRN Reason: PAIN LEVEL 6-10 Last Admin: 06/02/19 13:51 Dose: 1,000 mg Atorvastatin Calcium (Lipitor -) 40 mg PO HS [facility] Last Admin: 06/02/19 22:15 Dose: 40 mg Insulin Aspart (Novolog Vial Sliding Scale -) 1 vial SQ ACHS [facility]; Protocol Last Admin: 06/03/19 06:35 Dose: Not Given Lidocaine (Lidoderm Patch -) 1 patch TP HS [facility] Last Admin: 06/02/19 22:14 Dose: 1 patch Miscellaneous (Lidoderm Patch Removal) 1 each MC DAILY [facility] Last Admin: 06/03/19 09:52 Dose: 1 each Pantoprazole Sodium (Protonix Iv) 40 mg IVPUSH BID [facility] Last Admin: 06/03/19 09:49 Dose: 40 mg Polyethylene Glycol (Miralax (For Daily Use) -) 17 gm PO TID [facility] Last Admin: 06/03/19 06:35 Dose: Not Given - Objective Vital Signs: Vital Signs Temperature 97.8 F 06/03/19 12:39 Pulse Rate 87 06/03/19 13:24 Respiratory Rate 16 06/03/19 13:24 Blood Pressure 168/76 06/03/19 13:24 O2 Sat by Pulse Oximetry (%) 89 L 06/03/19 13:24 Constitutional: Yes: Calm Eyes: Yes: Conjunctiva Clear HENT: Yes: Atraumatic Neck: Yes: Supple Cardiovascular: Yes: S1, S2 Respiratory: Yes: CTA Bilaterally Gastrointestinal: Yes: Soft Musculoskeletal: Yes: Back Pain Edema: Yes Edema: LLE: Trace, RLE: Trace Neurological: Yes: Oriented Psychiatric: Yes: Oriented Labs: CBC, BMP 06/03/19 06:20 06/03/19 06:20 INR, PTT INR 1.03 (0.83-1.09) 05/31/19 13:17 Problem List - Problems (1) Anemia Code(s): D64.9 - ANEMIA, UNSPECIFIED Qualifiers: Anemia type: unspecified type Qualified Code(s): D64.9 - Anemia, unspecified (2) Back pain Code(s): M54.9 - DORSALGIA, UNSPECIFIED Qualifiers: Back pain laterality: left Sciatica presence: with sciatica Sciatica laterality: sciatica of left side (3) Hypoglycemia Code(s): E16.2 - HYPOGLYCEMIA, UNSPECIFIED (4) Renal insufficiency Code(s): N28.9 - DISORDER OF KIDNEY AND URETER, UNSPECIFIED Assessment/Plan Current Medications Generic Name Dose Route Start Last Admin Trade Name Freq PRN Reason Stop Dose Admin Acetaminophen 1,000 mg 05/31/19 17:11 06/02/19 13:51 Ofirmev Injection - IVPB 1,000 mg Q6H PRN Administration PAIN LEVEL 6-10 Atorvastatin Calcium 40 mg 06/01/19 22:00 06/02/19 22:15 Lipitor - PO 40 mg HS [facility] Administration Insulin Aspart 1 vial 06/01/19 11:00 06/03/19 06:35 Novolog Vial Sliding Scale - SQ Not Given ACHS [facility] Protocol Lidocaine 1 patch 05/31/19 22:00 06/02/19 22:14 Lidoderm Patch - TP 1 patch HS [facility] Administration Miscellaneous 1 each 06/01/19 10:00 06/03/19 09:52 Lidoderm Patch Removal MC 1 each DAILY [facility] Administration Pantoprazole Sodium 40 mg 06/02/19 22:00 06/03/19 09:49 Protonix Iv IVPUSH 40 mg BID [facility] Administration Polyethylene Glycol 17 gm 06/01/19 14:00 06/03/19 06:35 Miralax (For Daily Use) - PO Not Given TID [facility] 84 year old female with pmhx of ckd, DM, HTN, HLD, chronic pancreatitis, L4 fracture and anemia presents with hypoglycemia. 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 CKD / TIFFANY with ATN as working diagnosis 2. DM 3. HTN 4. anemia 5. L4 fracture 6. HLD 7. 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
--- NOTE | 2019-06-03 13:57 | PN ---
Progress Note (short form) - Note Progress Note: GI Procedures NOte: Please see EGD and colonoscopy reports. A gastric antrum ulcer and a suspicious cardia mucosa were found either of which could prove to be malignant. Both were biopsied. These would appear to account for the Hb drop to 4. Three large internal hemorrhoids with one revealing a ulcer were found and were rubber band ligated. Findings discussed with patient and family. May need referral for EUS. Needs to stay on PPI unto EGD is repeated in 3 months. Must avoid NSAIDs. Problem List - Problems (1) Rectal bleed Code(s): K62.5 - HEMORRHAGE OF ANUS AND RECTUM (2) Anemia Code(s): D64.9 - ANEMIA, UNSPECIFIED Qualifiers: Anemia type: unspecified type Qualified Code(s): D64.9 - Anemia, unspecified (3) Renal insufficiency Code(s): N28.9 - DISORDER OF KIDNEY AND URETER, UNSPECIFIED (4) Diabetes mellitus Code(s): E11.9 - TYPE 2 DIABETES MELLITUS WITHOUT COMPLICATIONS (5) Chronic pancreatitis Code(s): K86.1 - OTHER CHRONIC PANCREATITIS
[2019-06-03] MEDS ORDERED: LIDOCAINE HCL 2% JELLY 10 ML CARTRIDGE PR PRN (13:58)
[2019-06-03] MEDS ORDERED: oxyCODONE HCL 5 MG TABLET PO PRN (14:11)
[2019-06-03] MEDS ORDERED: ACETAMINOPHEN 325 MG TABLET (FP) PO PRN (14:11)
[2019-06-03] MEDS: amLODIPine BESYLATE 5 MG TABLET (FP) PO SCH (14:51)
--- NOTE | 2019-06-03 15:39 | PN ---
Progress Note (short form) - Note Progress Note: s: no chest pain, palps, dizziness, dyspnea. complains of back pain Current Medications Generic Name Dose Route Start Last Admin Trade Name Freq PRN Reason Stop Dose Admin Acetaminophen 1,000 mg 05/31/19 17:11 06/02/19 13:51 Ofirmev Injection - IVPB 1,000 mg Q6H PRN Administration PAIN LEVEL 6-10 Acetaminophen 325 mg 06/03/19 14:11 Tylenol - PO Q6H PRN PAIN LEVEL 4 - 6 Amlodipine Besylate 5 mg 06/03/19 14:00 06/03/19 14:51 Norvasc - PO 5 mg DAILY [facility] Administration Atorvastatin Calcium 40 mg 06/01/19 22:00 06/02/19 22:15 Lipitor - PO 40 mg HS [facility] Administration Cefazolin Sodium 1 gm/ 50 mls @ 100 mls/hr 06/03/19 22:00 Dextrose IVPB BID [facility] Insulin Aspart 1 vial 06/01/19 11:00 06/03/19 11:51 Novolog Vial Sliding Scale - SQ Not Given ACHS [facility] Protocol Lidocaine 1 patch 05/31/19 22:00 06/02/19 22:14 Lidoderm Patch - TP 1 patch HS [facility] Administration Lidocaine HCl 20 ml 06/03/19 13:58 Xylocaine 2% Uro-Jet FL TID PRN PAIN Miscellaneous 1 each 06/01/19 10:00 06/03/19 09:52 Lidoderm Patch Removal MC 1 each DAILY [facility] Administration Oxycodone HCl 5 mg 06/03/19 14:11 Roxicodone - PO Q6H PRN PAIN LEVEL 4 - 6 Pantoprazole Sodium 40 mg 06/02/19 22:00 06/03/19 09:49 Protonix Iv IVPUSH 40 mg BID [facility] Administration Polyethylene Glycol 17 gm 06/04/19 10:00 Miralax (For Daily Use) - PO DAILY [facility] Vital Signs Period Temp Pulse Resp BP Sys/Escalante Pulse Ox Last 24 Hr 97.3 F-98.2 F 74-91 16-82 155-171/7-86 89-97 Constitutional: Yes: No Distress, Calm Eyes: Yes: Conjunctiva Clear HENT: Yes: Atraumatic Neck: Yes: Trachea Midline Respiratory: Yes: CTA Bilaterally Gastrointestinal: Yes: Soft (nt) Cardiovascular: Yes: Regular Rate and Rhythm JVD: No Carotid Bruit: No Heart Sounds: Yes: S1, S2 (rrr) Edema: no Neurological: Yes: Alert, Oriented CBC, BMP 06/03/19 06:20 06/03/19 06:20 NSR 71bpm, no acute ST changes Echo: nl LV function, nl RV, PASP at least 54 mmHg, mild MR, mild TR, LA mildly dilated tele: sinus Imaging - Results X-ray: Image Reviewed (no Infiltrate or effusion.) Cat Scan: Report Reviewed (No acute DIRECTOR OF SUSTAINABILITY event, old infarcts.) Assessment/Plan IMP: 1. Marked anemia, secondary to GI blood loss 2. Renal insufficiency, acute on chronic in setting of acute blood loss anemia, hypovolemia 3. Borderline elevated TnI: likely due to demand ischemia caused by profound anemia in setting of renal insufficiency 4. DM 5. Chronic HTN, now with hypotensive episodes in setting of #1 6. Fatigue/somnolence, probably multifactorial and due to anemia, CKD and opiate effect 7. Chronic LE edema, suspect component of venous stasis and possible diastolic dysfx REC: 1. hgb improved after prbcs 2. Have been holding norvasc due to initial low bp but now bp elevated, norvasc resumed. 3. Echo with nl EF 4. Borderline TnI w/ nl CK, flat trend and non-ischemic ECG likely demand ischemia, not ACS. Hold ASA. Continue statin. 5. egd shows gastric ulcer, likely source of anemia. Holding asa.
--- NOTE | 2019-06-03 20:34 | PN ---
Progress Note (short form) - Note Progress Note: Patient seen and examined Results of endoscopy noted Await biopsy results S/P 2 units of packed cells Complains of back pains Might be candidate for kyphoplasty and discussed this daughters and patient at bedside Last Vital Signs Temp Pulse Resp BP Pulse Ox 97.8 F 87 16 168/76 89 L 06/03/19 12:39 06/03/19 13:24 06/03/19 13:24 06/03/19 13:24 06/03/19 13:24 CBC, BMP 06/03/19 06:20 06/03/19 06:20 HEENT: MARCELLO, EOM Intact Cor: RSR, No murmurs, No gallops Lungs: rales bilateral bases Ext:No significant edema Current Medications Generic Name Dose Route Start Last Admin Trade Name Freq PRN Reason Stop Dose Admin Acetaminophen 1,000 mg 05/31/19 17:11 06/02/19 13:51 Ofirmev Injection - IVPB 1,000 mg Q6H PRN Administration PAIN LEVEL 6-10 Acetaminophen 325 mg 06/03/19 14:11 Tylenol - PO Q6H PRN PAIN LEVEL 4 - 6 Amlodipine Besylate 5 mg 06/03/19 14:00 06/03/19 14:51 Norvasc - PO 5 mg DAILY [facility] Administration Atorvastatin Calcium 40 mg 06/01/19 22:00 06/02/19 22:15 Lipitor - PO 40 mg HS [facility] Administration Cefazolin Sodium 1 gm/ 50 mls @ 100 mls/hr 06/03/19 22:00 Dextrose IVPB BID [facility] Insulin Aspart 1 vial 06/01/19 11:00 06/03/19 17:12 Novolog Vial Sliding Scale - SQ Not Given ACHS [facility] Protocol Lidocaine 1 patch 05/31/19 22:00 06/02/19 22:14 Lidoderm Patch - TP 1 patch HS [facility] Administration Lidocaine HCl 20 ml 06/03/19 13:58 Xylocaine 2% Uro-Jet IN TID PRN PAIN Miscellaneous 1 each 06/01/19 10:00 06/03/19 09:52 Lidoderm Patch Removal MC 1 each DAILY [facility] Administration Oxycodone HCl 5 mg 06/03/19 14:11 Roxicodone - PO Q6H PRN PAIN LEVEL 4 - 6 Pantoprazole Sodium 40 mg 06/02/19 22:00 06/03/19 09:49 Protonix Iv IVPUSH 40 mg BID [facility] Administration Polyethylene Glycol 17 gm 06/04/19 10:00 Miralax (For Daily Use) - PO DAILY [facility] Impression: GI bleeding Gastric ulcer Hemorrhoids CKD Back pains Previously with abbnormal proteins- can follow up as out patient Await Pathology
[2019-06-03] MEDS ORDERED: ceFAZolin SODIUM 1 GM VIAL ONE (21:26)
[2019-06-03] MEDS ORDERED: DEXTROSE 5%-WATER - 50 ML IVPB ONE (21:27)
[2019-06-03] MEDS ORDERED: INSULIN (NOVOLOG) ASPART 100 UNITS/ML 10ML VIAL ONE (21:55)
[2019-06-03] MEDS: ATORVASTATIN CA 40 MG TABLET (FP) PO SCH (22:03)
[2019-06-03] MEDS: CEFAZOLIN 1 GM in DEXTROSE 5%-WATER - 50 ML IVPB SCH (22:03)
[2019-06-03] MEDS: LIDOCAINE 5% TOPICAL PATCH TP SCH (22:03)
--- NOTE | 2019-06-03 23:31 | CONSULT ---
Consult - text type - Consultation Consultation Note: NEUROSURGERY CONSULTATION Patient is an 84 year old female who has a history of Lumbar degenerative scoliosis who was undergoing rehabilitation for a Left shoulder injury and noted sudden onset of increased back pain. This was approximately 3 weeks ago. One week ago, the patient developed increased pain and this progressed to the point that she could no longer walk and was in great discomfort. She presented to the [facility] ER where imaging with plain film radiographs confirmed her Lumbar degenerative scoliosis with marked osteopenia and mild coronal deformity. MRI Lumbar done on May 28 at an outside institution was brought in for review. The patient was noted to have an acute fracture of the caudal endplate of L4. I discussed this finding and her overall condition with the patient, her spouse and two daughters both yesterday and today. We agreed that a conservative approach would be best and I ordered an abdominal binder to treat the fracture. The patient received the brace and when it was placed, she was able to sit comfortably in a chair. We discussed the potential role of more rigid orthoses, cement augmentation and in rare cases, internal fixation. Hopefully, none of these will be required, however, a complete discussion of potential challenges and the need for additional support to treat her fracture was had with the family who are in agreement. All questions answered. - Abdominal binder for comfort - GI/DVT prophylaxis - Will follow with team
[2019-06-04] MEDS: INSULIN SLIDING SCALE (NOVOLOG) 1 VIAL SQ SCH ×4 (06:21→21:56)
[2019-06-04 06:53] LABS: BLOOD UREA NITROGEN 53.5 mg/dL (7-18); CREATININE 2.6 mg/dL (0.55-1.3); POTASSIUM 3.9 mmol/L (3.5-5.1)
[2019-06-04 07:03] LABS: EOS % 2.4 % (0-4.5); HEMATOCRIT 18.1 % (32.4-45.2); LYMPH % 16.2 % (8-40); MCH 30.3 pg (25.7-33.7); MCHC 38.3 g/dl (32.0-36.0); MEAN CELL VOLUME 79.1 fl (80-96); MEAN PLT VOLUME 8.5 fl (7.5-11.1); MONO % 9.2 % (3.8-10.2); NEUT % 71.2 % (42.8-82.8); PLATELET COUNT 220 K/MM3 (134-434); RBC 2.29 M/mm3 (3.60-5.2); RDW 19.5 % (11.6-15.6); WHITE BLOOD COUNT 8.1 K/mm3 (4.0-10.0)
[2019-06-04 07:53] LABS: HEMOGLOBIN 6.9 GM/dL (10.7-15.3)
--- NOTE | 2019-06-04 08:42 | PN ---
Progress Note (short form) - Note Progress Note: Pain improved with the binder. EGD/Clolnoscopy---gasytic ulcer and suspicious cardiac [id number]. F/u Fiordaliza Dunlap Kozicky appreciated. Vital Signs Temp 98.5 F 06/04/19 06:00 Pulse 83 06/04/19 06:00 Resp 20 06/04/19 06:00 BP 149/69 06/04/19 06:00 Pulse Ox 93 L 06/03/19 21:00 Intake & Output 06/03/19 06/03/19 06/04/19 11:59 23:59 11:59 Intake Total 600 20 80 Balance 600 20 80 Intake: IV 600 20 30 saline lock 20 30 IVPB 50 Other: Voiding Method Bedside Commode Bedside Commode Bedside Commode Lungs clear Heart S1S2 regular Abdomen soft, NT Ext no CCE Laboratory Results - last 24 hr 05/31/19 06/03/19 06/03/19 17:10 06:20 17:01 WBC 10.7 H RBC 3.49 L Hgb 8.5 L Hct 25.9 L MCV 74.2 L MCH 24.3 L D MCHC 32.8 RDW 21.7 H Plt Count 233 MPV 8.3 Absolute Neuts (auto) 8.5 H Neutrophils % 79.3 Lymphocytes % 11.1 Monocytes % 8.0 Eosinophils % 0.9 Basophils % 0.7 Nucleated RBC % 0 Sodium Potassium Chloride Carbon Dioxide Anion Gap BUN Creatinine Est GFR (CKD-EPI)AfAm Est GFR (CKD-EPI)NonAf POC Glucometer 170 Random Glucose Calcium Blood Type A POSITIVE Antibody Screen Negative Crossmatch See Detail 06/03/19 06/04/19 06/04/19 21:54 05:17 05:17 WBC 8.1 RBC 2.29 L Hgb 6.9 L* Hct 18.1 L D MCV 79.1 L MCH 30.3 D MCHC 38.3 H RDW 19.5 H Plt Count 220 MPV 8.5 Absolute Neuts (auto) 5.8 Neutrophils % 71.2 Lymphocytes % 16.2 D Monocytes % 9.2 Eosinophils % 2.4 D Basophils % 1.0 Nucleated RBC % 0 Sodium 146 H Potassium 3.9 Chloride 115 H Carbon Dioxide 23 Anion Gap 8 BUN 53.5 H Creatinine 2.6 H Est GFR (CKD-EPI)AfAm 18.74 Est GFR (CKD-EPI)NonAf 16.17 POC Glucometer 290 Random Glucose 121 H Calcium 8.0 L Blood Type Antibody Screen Crossmatch 06/04/19 06:18 WBC RBC Hgb Hct MCV MCH MCHC RDW Plt Count MPV Absolute Neuts (auto) Neutrophils % Lymphocytes % Monocytes % Eosinophils % Basophils % Nucleated RBC % Sodium Potassium Chloride Carbon Dioxide Anion Gap BUN Creatinine Est GFR (CKD-EPI)AfAm Est GFR (CKD-EPI)NonAf POC Glucometer 111 Random Glucose Calcium Blood Type Antibody Screen Crossmatch Current Active Problems Problem Status Onset Anemia Acute Back pain Acute Cerebrovascular accident (CVA) Acute Diabetes mellitus Acute Elevated troponin I level Acute Hypoglycemia Acute Hypotension Acute Prophylactic measure Acute Rectal bleed Acute Renal insufficiency Acute Symptomatic anemia Acute Plan PRBC 2 units F/u CBC, CMP AM Dr Billings IR consult re possible kyphoplasty. PPI Add Tenormin 50, Chlorthal 25 qd , amlo 5 QD for better BP control Problem List - Problems (1) Back pain Code(s): M54.9 - DORSALGIA, UNSPECIFIED Qualifiers: Back pain laterality: left Sciatica presence: with sciatica Sciatica laterality: sciatica of left side (2) Hypoglycemia Code(s): E16.2 - HYPOGLYCEMIA, UNSPECIFIED (3) Renal insufficiency Code(s): N28.9 - DISORDER OF KIDNEY AND URETER, UNSPECIFIED (4) Symptomatic anemia Code(s): D64.9 - ANEMIA, UNSPECIFIED (5) Elevated troponin I level Code(s): R74.8 - ABNORMAL LEVELS OF OTHER SERUM ENZYMES (6) Cerebrovascular accident (CVA) Code(s): I63.9 - CEREBRAL INFARCTION, UNSPECIFIED Qualifiers: Laterality of affected vessel: unspecified
[2019-06-04] MEDS ORDERED: PT OWN MED DRAWER 7, Y5N ONE ×2 (08:57→11:25)
[2019-06-04] MEDS: amLODIPine BESYLATE 5 MG TABLET (FP) PO SCH (09:11)
[2019-06-04] MEDS: ATENOLOL 50 MG TABLET (FP) PO SCH (09:11)
--- NOTE | 2019-06-04 09:18 | PN ---
Progress Note (short form) - Note Progress Note: Patient comfortable in bed. Reports sleeping well with reduced pain since she started using the abdominal binder. She wore it until 1 AM and then slept without it. Plans for ambulation with PT today and then can consider SNF/Rehab/ Discharge home from Neurosurgery standpoint.
[2019-06-04] MEDS ORDERED: ceFAZolin SODIUM 1 GM VIAL ONE ×2 (09:52→21:37)
[2019-06-04] MEDS ORDERED: DEXTROSE 5%-WATER - 50 ML IVPB ONE ×2 (09:52→21:37)
[2019-06-04] MEDS: CEFAZOLIN 1 GM in DEXTROSE 5%-WATER - 50 ML IVPB SCH ×2 (10:00→21:55)
--- NOTE | 2019-06-04 11:10 | PN ---
Progress Note (short form) - Note Progress Note: s: no chest pain, palps, dizziness, dyspnea. Current Medications Generic Name Dose Route Start Last Admin Trade Name Freq PRN Reason Stop Dose Admin Acetaminophen 1,000 mg 05/31/19 17:11 06/02/19 13:51 Ofirmev Injection - IVPB 1,000 mg Q6H PRN Administration PAIN LEVEL 6-10 Acetaminophen 325 mg 06/03/19 14:11 Tylenol - PO Q6H PRN PAIN LEVEL 4 - 6 Amlodipine Besylate 5 mg 06/03/19 14:00 06/04/19 09:11 Norvasc - PO 5 mg DAILY [facility] Administration Atenolol 50 mg 06/04/19 10:00 06/04/19 09:11 Tenormin - PO 50 mg DAILY [facility] Administration Atorvastatin Calcium 40 mg 06/01/19 22:00 06/03/19 22:03 Lipitor - PO 40 mg HS [facility] Administration Chlorthalidone 25 mg 06/04/19 10:00 [place] - PO DAILY [facility] Cefazolin Sodium 1 gm/ 50 mls @ 100 mls/hr 06/03/19 22:00 06/04/19 10:00 Dextrose IVPB 100 mls/hr BID [facility] Administration Insulin Aspart 1 vial 06/01/19 11:00 06/04/19 06:21 Novolog Vial Sliding Scale - SQ Not Given ACHS [facility] Protocol Lidocaine 1 patch 05/31/19 22:00 06/03/19 22:03 Lidoderm Patch - TP 1 patch HS [facility] Administration Lidocaine HCl 20 ml 06/03/19 13:58 Xylocaine 2% Uro-Jet DC TID PRN PAIN Miscellaneous 1 each 06/01/19 10:00 06/03/19 09:52 Lidoderm Patch Removal MC 1 each DAILY [facility] Administration Oxycodone HCl 5 mg 06/03/19 14:11 Roxicodone - PO Q6H PRN PAIN LEVEL 4 - 6 Pantoprazole Sodium 40 mg 06/02/19 22:00 06/03/19 22:04 Protonix Iv IVPUSH 40 mg BID [facility] Administration Polyethylene Glycol 17 gm 06/04/19 10:00 Miralax (For Daily Use) - PO DAILY [facility] Vital Signs Period Temp Pulse Resp BP Sys/Escalante Pulse Ox Last 24 Hr 97.8 F-98.5 F 79-89 16-20 149-171/66-76 89-93 Constitutional: Yes: No Distress, Calm Eyes: Yes: Conjunctiva Clear HENT: Yes: Atraumatic Neck: Yes: Trachea Midline Respiratory: Yes: CTA Bilaterally Gastrointestinal: Yes: Soft (nt) Cardiovascular: Yes: Regular Rate and Rhythm JVD: No Carotid Bruit: No Heart Sounds: Yes: S1, S2 (rrr) Edema: no Neurological: Yes: Alert, Oriented CBC, BMP 06/04/19 05:17 06/04/19 05:17 NSR 71bpm, no acute ST changes Echo: nl LV function, nl RV, PASP at least 54 mmHg, mild MR, mild TR, LA mildly dilated tele: sinus Imaging - Results X-ray: Image Reviewed (no Infiltrate or effusion.) Cat Scan: Report Reviewed (No acute NATURAL RESOURCE ECONOMIST event, old infarcts.) Assessment/Plan IMP: 1. Marked anemia, secondary to GI blood loss 2. Renal insufficiency, acute on chronic in setting of acute blood loss anemia, hypovolemia 3. Borderline elevated TnI: likely due to demand ischemia caused by profound anemia in setting of renal insufficiency 4. DM 5. Chronic HTN, now with hypotensive episodes in setting of #1 6. Fatigue/somnolence, probably multifactorial and due to anemia, CKD and opiate effect 7. Chronic LE edema, suspect component of venous stasis and possible diastolic dysfx REC: 1. hgb improved after prbcs but after scopes it is down again today, getting more prbcs 2. Cont norvasc 3. Echo with nl EF 4. Borderline TnI w/ nl CK, flat trend and non-ischemic ECG likely demand ischemia, not ACS. Hold ASA. Continue statin. 5. egd shows gastric ulcer, likely source of anemia. Holding asa.
[2019-06-04] MEDS: LIDOCAINE PATCH REMOVAL MC SCH (11:29)
[2019-06-04] MEDS: CHLORTHALIDONE 25 MG TABLET PO SCH (11:29)
[2019-06-04] MEDS: PANTOPRAZOLE SODIUM 40 MG VIAL IVPUSH SCH ×2 (11:30→22:54)
[2019-06-04] MEDS: POLYETHYLENE GLYCOL 3350 119 GM BTL PO SCH (11:30)
--- NOTE | 2019-06-04 13:23 | CON.PULM ---
Consult Consult Specialty:: PULMONARY Referred by:: Dr Villatoro Reason for Consultation:: hypoxia - History of Present Illness Chief Complaint: lethargy History of Present Illness: 84yo female with h/o HTN, DM, hyperlipidemia, who was admitted with increasing lethargy. Found to be hypoglycemic and severely anemic requiring PRBC transfusions. Had an EGD and colonoscopy yesterday showing a gastric ulcer and hemorrhoids. Post procedure was noted to be hypoxic and wheezing. She denies shortness of breath at that time and currently. No cough or wheezing. No chest pain or discomfort. No fevers, chills or sweats. She denies any history of asthma or COPD, is a never smoker. - History Source History Provided By: Patient, Family Member, Medical Record Limitations to Obtaining History: No Limitations - Past Medical History Cardio/Vascular: Yes: HTN, Hyperlipdemia Renal/: Yes: Renal Inusuff ...: No Musculoskeletal: Yes: Chronic low back pain Endocrine: Yes: Diabetes Mellitus - Alcohol/Substance Use Hx Alcohol Use: No History of Substance Use: reports: None - Smoking History Smoking history: Never smoked Have you smoked in the past 12 months: No - Social History ADL: Independent History of Recent Travel: No Home Medications - Allergies Allergies/Adverse Reactions: Allergies Allergy/AdvReac Type Severity Reaction Status Date / Time No Known Allergies Allergy Verified 05/31/19 12:41 - Home Medications Home Medications: Ambulatory Orders Amlodipine Besylate [Norvasc -] 10 mg PO DAILY 10/03/15 Ascorbate Calcium [Vitamin C] 500 mg PO DAILY 10/03/15 Atorvastatin Ca [Lipitor -] 40 mg PO HS 10/03/15 Calcium Carbonate/Vitamin D3 [Calcium 500 + Vit D3 400 Tab] 1 each PO BID Multivitamins [Tab-A-Vit -] 1 tab PO DAILY 10/03/15 Quinapril HCl [Accupril] 40 mg PO DAILY 10/03/15 Aspirin [Ecotrin] 81 mg PO DAILY 10/04/15 Atenolol/Chlorthalidone [Atenolol-Chlorthalidone 50-25] 1 each PO HS 10/04/15 Insulin Aspart [Novolog] 0 unit SQ ASDIR 09/18/18 Insulin Degludec [Tresiba Flextouch U-100] 34 unit SQ HS 09/18/18 Acetaminophen [Tylenol -] 500 mg PO Q6H PRN 05/18/19 Review of Systems - Review of Systems Constitutional: reports: Weakness. denies: Chills, Fever Eyes: denies: Recent Change in Vision HENT: denies: Nasal Congestion, Throat Pain Neck: denies: Stiffness, Tenderness Cardiovascular: reports: Edema. denies: Chest Pain, Palpitations, Shortness of Breath Respiratory: denies: Cough, Hemoptysis, SOB, Wheezing Gastrointestinal: denies: Abdominal Pain, Nausea, Vomiting Genitourinary: denies: Dysuria, Hematuria Neurological: denies: Dizziness, Headache Endocrine: denies: Unexplained Weight Loss Physical Exam Vital Sings: Vital Signs Temperature 98.2 F 06/04/19 09:00 Pulse Rate 86 06/04/19 09:00 Respiratory Rate 20 06/04/19 09:00 Blood Pressure 157/66 06/04/19 09:00 O2 Sat by Pulse Oximetry (%) 93 L 06/04/19 09:00 Constitutional: Yes: Calm Eyes: Yes: Conjunctiva Clear, EOM Intact HENT: Yes: Atraumatic, Normocephalic Neck: Yes: Supple, Trachea Midline Cardiovascular: Yes: Regular Rate and Rhythm Respiratory: Yes: Diminished (decreased breath sounds at the bases) ...Clubbing: No Gastrointestinal: Yes: Normal Bowel Sounds, Soft. No: Tenderness Edema: Yes Neurological: Yes: Alert, Oriented Labs: CBC, BMP 06/04/19 05:17 06/04/19 05:17 Imaging - Results Chest X-ray: Report Reviewed, Image Reviewed (bilateral effusions) Assessment/Plan Symptomatic Anemia Gastric Ulcer/Hemorrhoids Acute on Chronic Diastolic Heart Failure +Troponins likely Demand Ischemia Acute on Chronic Renal Failure HTN DM - monitor H/H - transfuse as needed - protonix - CXR ordered, shows increased bilateral effusions, will give lasix today - monitor urine output, creatinine - O2 to keep Spo2 >90% - incentive spirometry - DVT prophylaxis Thank you for this consult Arnoldo Negron MD
[2019-06-04] MEDS ORDERED: FUROSEMIDE 40 MG/4 ML INJECTABLE VIAL IVPUSH ONE (13:25)
--- NOTE | 2019-06-04 15:54 | PN ---
Progress Note, Physician History of Present Illness: Pt seen and examined at bedside. She is awake and alert. She denies shortness of breath. - Current Medication List Current Medications: Active Medications Acetaminophen (Ofirmev Injection -) 1,000 mg IVPB Q6H PRN PRN Reason: PAIN LEVEL 6-10 Last Admin: 06/02/19 13:51 Dose: 1,000 mg Acetaminophen (Tylenol -) 325 mg PO Q6H PRN PRN Reason: PAIN LEVEL 4 - 6 Amlodipine Besylate (Norvasc -) 5 mg PO DAILY [facility] Last Admin: 06/04/19 09:11 Dose: 5 mg Atenolol (Tenormin -) 50 mg PO DAILY [facility] Last Admin: 06/04/19 09:11 Dose: 50 mg Atorvastatin Calcium (Lipitor -) 40 mg PO [facility] Last Admin: 06/03/19 22:03 Dose: 40 mg Chlorthalidone (Hygroton -) 25 mg PO DAILY [facility] Last Admin: 06/04/19 11:29 Dose: 25 mg Cefazolin Sodium 1 gm/ (Dextrose) 50 mls @ 100 mls/hr IVPB BID [facility] Last Admin: 06/04/19 10:00 Dose: 100 mls/hr Insulin Aspart (Novolog Vial Sliding Scale -) 1 vial SQ ACHS [facility]; Protocol Last Admin: 06/04/19 12:38 Dose: Not Given Lidocaine (Lidoderm Patch -) 1 patch TP HS [facility] Last Admin: 06/03/19 22:03 Dose: 1 patch Lidocaine HCl (Xylocaine 2% Uro-Jet) 20 ml IN TID PRN PRN Reason: PAIN Miscellaneous (Lidoderm Patch Removal) 1 each MC DAILY [facility] Last Admin: 06/04/19 11:29 Dose: 1 each Oxycodone HCl (Roxicodone -) 5 mg PO Q6H PRN PRN Reason: PAIN LEVEL 4 - 6 Pantoprazole Sodium (Protonix Iv) 40 mg IVPUSH BID [facility] Last Admin: 06/04/19 11:30 Dose: 40 mg Polyethylene Glycol (Miralax (For Daily Use) -) 17 gm PO DAILY [facility] Last Admin: 06/04/19 11:30 Dose: 17 grams - Objective Vital Signs: Vital Signs Temperature 98.0 F 06/04/19 14:00 Pulse Rate 70 06/04/19 14:00 Respiratory Rate 19 06/04/19 14:00 Blood Pressure 176/76 H 06/04/19 14:00 O2 Sat by Pulse Oximetry (%) 93 L 06/04/19 09:00 Constitutional: Yes: Calm Eyes: Yes: Conjunctiva Clear HENT: Yes: Atraumatic Neck: Yes: Supple Cardiovascular: Yes: S1, S2 Respiratory: Yes: CTA Bilaterally Gastrointestinal: Yes: Soft Genitourinary: Yes: WNL Musculoskeletal: Yes: WNL Edema: Yes Edema: LLE: Trace, RLE: Trace Integumentary: Yes: WNL Neurological: Yes: Oriented Psychiatric: Yes: Oriented Labs: CBC, BMP 06/04/19 05:17 06/04/19 05:17 INR, PTT INR 1.03 (0.83-1.09) 05/31/19 13:17 Problem List - Problems (1) Anemia Code(s): D64.9 - ANEMIA, UNSPECIFIED Qualifiers: Anemia type: unspecified type Qualified Code(s): D64.9 - Anemia, unspecified (2) Back pain Code(s): M54.9 - DORSALGIA, UNSPECIFIED Qualifiers: Back pain laterality: left Sciatica presence: with sciatica Sciatica laterality: sciatica of left side (3) Hypoglycemia Code(s): E16.2 - HYPOGLYCEMIA, UNSPECIFIED (4) Renal insufficiency Code(s): N28.9 - DISORDER OF KIDNEY AND URETER, UNSPECIFIED Assessment/Plan Current Medications Generic Name Dose Route Start Last Admin Trade Name Freq PRN Reason Stop Dose Admin Acetaminophen 1,000 mg 05/31/19 17:11 06/02/19 13:51 Ofirmev Injection - IVPB 1,000 mg Q6H PRN Administration PAIN LEVEL 6-10 Acetaminophen 325 mg 06/03/19 14:11 Tylenol - PO Q6H PRN PAIN LEVEL 4 - 6 Amlodipine Besylate 5 mg 06/03/19 14:00 06/04/19 09:11 Norvasc - PO 5 mg DAILY [facility] Administration Atenolol 50 mg 06/04/19 10:00 06/04/19 09:11 Tenormin - PO 50 mg DAILY [facility] Administration Atorvastatin Calcium 40 mg 06/01/19 22:00 06/03/19 22:03 Lipitor - PO 40 mg HS [facility] Administration Chlorthalidone 25 mg 06/04/19 10:00 06/04/19 11:29 Hygroton - PO 25 mg DAILY [facility] Administration Cefazolin Sodium 1 gm/ 50 mls @ 100 mls/hr 06/03/19 22:00 06/04/19 10:00 Dextrose IVPB 100 mls/hr BID [facility] Administration Insulin Aspart 1 vial 06/01/19 11:00 06/04/19 12:38 Novolog Vial Sliding Scale - SQ Not Given ACHS [facility] Protocol Lidocaine 1 patch 05/31/19 22:00 06/03/19 22:03 Lidoderm Patch - TP 1 patch HS [facility] Administration Lidocaine HCl 20 ml 06/03/19 13:58 Xylocaine 2% Uro-Jet IN TID PRN PAIN Miscellaneous 1 each 06/01/19 10:00 06/04/19 11:29 Lidoderm Patch Removal MC 1 each DAILY [facility] Administration Oxycodone HCl 5 mg 06/03/19 14:11 Roxicodone - PO Q6H PRN PAIN LEVEL 4 - 6 Pantoprazole Sodium 40 mg 06/02/19 22:00 06/04/19 11:30 Protonix Iv IVPUSH 40 mg BID [facility] Administration Polyethylene Glycol 17 gm 06/04/19 10:00 06/04/19 11:30 Miralax (For Daily Use) - PO 17 grams DAILY [facility] Administration 84 year old female with pmhx of ckd, DM, HTN, HLD, chronic pancreatitis, L4 fracture and anemia presents with hypoglycemia. 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 CKD / TIFFANY with ATN as working diagnosis 2. DM 3. HTN 4. anemia 5. L4 fracture 6. HLD 7. chronic pancreatitis Plan - cont to monitor renal function - bp meds restarted - can increase norvasc to 10 if bp elevated - oncology follow up for elevated kappa and lambda - discussed with family - avoid nephrotoxins - will re-order ua
--- NOTE | 2019-06-04 16:42 | PATH ---
Surgical Pathology Report Patient Name: FLAIVA GOMEZ [facility]. Rec. #: [id number] /Age/Gender: 1935 (Age: 84) / F Account: [id number] Location: 4 W TELEMETRY U Taken: 06/03/2019 Received: 06/03/2019 Reported: 06/04/2019 Physicians: Elma Villatoro M.D. Specimen(s) Received A: SECOND PORTION DUODENUM AND BULB B: ANTRUM C: GASTRIC CARDIA D: EDGE GASTRIC ULCER E: GE JUNCTION Clinical History Anemia, rule out ulcer, rectal bleeding Postoperative diagnosis: Gastric ulcer, diverticulosis, hemorrhoidal bleeding Final Diagnosis A. DUODENUM, SECOND PORTION AND DUODENAL BULB BIOPSY: DUODENAL MUCOSA WITH MILD TO MODERATE CHRONIC DUODENITIS, MILD INTRAEPITHELIAL LYMPHOCYTOSIS AND FOCAL BLUNTING. SEE COMMENT. B. STOMACH, ANTRUM, BIOPSY: GASTRIC ANTRAL MUCOSA WITH MILD TO MODERATE CHRONIC GASTRITIS. IMMUNOHISTOCHEMICAL STAIN FOR H. PYLORI IS NEGATIVE. C. GASTRIC CARDIA, BIOPSY: GASTRIC CARDIAC TYPE MUCOSA WITH MODERATE CHRONIC GASTRITIS AND INTESTINAL METAPLASIA. IMMUNOHISTOCHEMICAL STAIN FOR H. PYLORI IS NEGATIVE. 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 NO DYSPLASIA IDENTIFIED. D. GASTRIC ULCER, EDGE, BIOPSY: GASTRIC MUCOSA WITH MODERATE CHRONIC FOCAL ACTIVE GASTRITIS. IMMUNOHISTOCHEMICAL STAIN FOR H. PYLORI IS NEGATIVE. E. GE JUNCTION, BIOPSY: SQUAMOUS MUCOSA WITH CHANGES CONSISTENT WITH MILD REFLUX ESOPHAGITIS. NO COLUMNAR MUCOSA, INTESTINAL METAPLASIA, OR DYSPLASIA IDENTIFIED. Comment: Part A, The finding is nonspecific and may be seen in gluten sensitive enteropathy (celiac disease) and chronic duodenitis. In the presence of chronic inflammation the findings are likely related to chronic duodenitis. Serological correlations are suggested if clinically indicated. Electronically Signed Haylee Fuentes M.D. Gross Description A. Received in formalin, labeled "biopsy second portion of duodenum and duodenal bulb" are 3 mckeon, irregular portions of soft tissue ranging from 0.3-0.6 cm. in greatest dimension. The specimens are submitted in toto in one cassette. B. Received in formalin, labeled "biopsy antrum" are 2 mckeon, irregular portions of soft tissue measuring 0.3 and 0.5 cm. in greatest dimension. The specimens are submitted in toto in one cassette. C. Received in formalin, labeled "biopsy gastric cardia" are 3 mckeon, irregular portions of soft tissue ranging from 0.2-0.6 cm. in greatest dimension. The specimens are submitted in toto in one cassette. D. Received in formalin, labeled "biopsy edge of gastric ulcer" is a mckeon, irregular portion of soft tissue measuring 0.5 cm. in greatest dimension. The specimen is submitted in toto in one cassette. E. Received in formalin, labeled "biopsy GE junction" are 2 mckeon, irregular portions of soft tissue averaging 0.3 cm. in greatest dimension. The specimens are submitted in toto in one cassette. 06/03/2019 saudi06/03/2019
[2019-06-04] MEDS ORDERED: amLODIPine BESYLATE 5 MG TABLET (FP) PO ONE (18:14)
[2019-06-04 19:48] LABS: URINE APPEARANCE CLEAR; URINE BILIRUBIN NEGATIVE (NEGATIVE); URINE COLOR YELLOW; URINE GLUCOSE (UA) 1+ (NEGATIVE); URINE KETONE NEGATIVE (NEGATIVE); URINE LEUK ESTERASE NEGATIVE (NEGATIVE); URINE NITRITE NEGATIVE (NEGATIVE); URINE PROTEIN NEGATIVE (NEGATIVE); URINE UROBILINOGEN 0.2 mg/dL (0.2-1.0)
[2019-06-04] MEDS ORDERED: INSULIN (NOVOLOG) ASPART 100 UNITS/ML 10ML VIAL ONE (21:44)
[2019-06-04] MEDS: LIDOCAINE 5% TOPICAL PATCH TP SCH (21:55)
--- NOTE | 2019-06-04 21:55 | PN ---
Teaching Attending Note ATTENDING PHYSICIAN STATEMENT I saw and evaluated the patient. I reviewed the resident's note and discussed the case with the resident. I agree with the resident's findings and plan as documented. SUBJECTIVE: OBJECTIVE: ASSESSMENT AND PLAN:
[2019-06-04] MEDS: ATORVASTATIN CA 40 MG TABLET (FP) PO SCH (21:56)
--- NOTE | 2019-06-04 22:17 | PN.GI ---
GI Progress Note Subjective: GI NOte: I am baffled by the Hb drop. Mindy reports that she passed some brown stool today but no overt blood. Got 2 units of blood. Has the anticipated rectal discomfort following the banding but tells me it's bearable. - Objective Vital Signs: Vital Signs Temperature 97.9 F 06/04/19 17:00 Pulse Rate 66 06/04/19 17:00 Respiratory Rate 20 06/04/19 17:00 Blood Pressure 176/68 H 06/04/19 17:00 O2 Sat by Pulse Oximetry (%) 93 L 06/04/19 09:00 Laboratory Tests 06/02/19 06/03/19 06/04/19 05:50 06:20 05:17 Hgb 8.5 L 6.9 L* Retic Count 2.48 H Constitutional: Calm ...Auscultate: Yes: Normoactive Bowel Sounds ...Palpate: Yes: Soft, Other (nontender) Labs: CBC, BMP 06/04/19 05:17 06/04/19 05:17 INR, PTT INR 1.03 (0.83-1.09) 05/31/19 13:17 Assessment/Plan Assessment: - - Rectal bleeding from banded internal hemorrhoid - Profound anemia from gastric ulcer which was apparently not evident at recent EUS. She could alternatively have a neoplasm at her cardia accounting for this anemia. Plan: -- PPI drip unless Hb is stable -- Sitz baths for rubber band ligation discomfort. 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
[2019-06-05] MEDS: INSULIN SLIDING SCALE (NOVOLOG) 1 VIAL SQ SCH ×4 (06:10→22:33)
[2019-06-05 09:01] LABS: ALBUMIN 2.5 g/dl (3.4-5.0); BILIRUBIN,TOTAL 0.6 mg/dL (0.2-1); BLOOD UREA NITROGEN 48.1 mg/dL (7-18); CALCIUM 8.3 mg/dL (8.5-10.1); CREATININE 2.7 mg/dL (0.55-1.3); POTASSIUM 3.9 mmol/L (3.5-5.1); TOT PROT 5.6 g/dl (6.4-8.2)
--- NOTE | 2019-06-05 09:16 | PN ---
Progress Note, Physician Chief Complaint: Feels less SOB, less back pain. Received 2 units PRBC Biposy path- neg for malinancy. CBC-P CXR B/B effusions History of Present Illness: DM 2 on Insulin HTN CKD recently worsened and saw by Dr Dee. 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 Macular degeneration. HLD - Current Medication List Current Medications: Active Medications Acetaminophen (Ofirmev Injection -) 1,000 mg IVPB Q6H PRN PRN Reason: PAIN LEVEL 6-10 Last Admin: 06/02/19 13:51 Dose: 1,000 mg Acetaminophen (Tylenol -) 325 mg PO Q6H PRN PRN Reason: PAIN LEVEL 4 - 6 Amlodipine Besylate (Norvasc -) 10 mg PO DAILY [facility] Atenolol (Tenormin -) 50 mg PO DAILY [facility] Last Admin: 06/04/19 09:11 Dose: 50 mg Atorvastatin Calcium (Lipitor -) 40 mg PO HS [facility] Last Admin: 06/04/19 21:56 Dose: 40 mg Chlorthalidone (Hygroton -) 25 mg PO DAILY [facility] Last Admin: 06/04/19 11:29 Dose: 25 mg Cefazolin Sodium 1 gm/ (Dextrose) 50 mls @ 100 mls/hr IVPB BID [facility] Last Admin: 06/04/19 21:55 Dose: 100 mls/hr Insulin Aspart (Novolog Vial Sliding Scale -) [address] [facility]; Protocol Last Admin: 06/05/19 06:10 Dose: Not Given Lidocaine (Lidoderm Patch -) 1 patch TP HS [facility] Last Admin: 06/04/19 21:55 Dose: 1 patch Lidocaine HCl (Xylocaine 2% Uro-Jet) 20 ml NE TID PRN PRN Reason: PAIN Miscellaneous (Lidoderm Patch Removal) 1 each MC DAILY [facility] Last Admin: 06/04/19 11:29 Dose: 1 each Oxycodone HCl (Roxicodone -) 5 mg PO Q6H PRN PRN Reason: PAIN LEVEL 4 - 6 Pantoprazole Sodium (Protonix Iv) 40 mg IVPUSH BID [facility] Last Admin: 06/04/19 22:54 Dose: 40 mg Polyethylene Glycol (Miralax (For Daily Use) -) 17 gm PO DAILY [facility] Last Admin: 06/04/19 11:30 Dose: 17 grams - Objective Vital Signs: Vital Signs Temperature 98.2 F 06/05/19 06:00 Pulse Rate 69 06/05/19 06:00 Respiratory Rate 20 06/05/19 06:00 Blood Pressure 146/63 06/05/19 06:00 O2 Sat by Pulse Oximetry (%) 94 L 06/04/19 21:00 Constitutional: Yes: Anxious, Mild Distress Eyes: Yes: Conjunctiva Clear, EOM Intact HENT: Yes: Atraumatic, Normocephalic Neck: Yes: Supple, Trachea Midline Cardiovascular: Yes: Regular Rate and Rhythm, S1, S2. No: Tachycardia Respiratory: Yes: Diminished (B/B) Gastrointestinal: Yes: Normal Bowel Sounds, Soft ...Rectal Exam: Yes: Deferred Genitourinary: No: Anuria Breast(s): Yes: WNL Musculoskeletal: Yes: Back Pain Extremities: Yes: WNL. No: Calf Tenderness, Cold, Cyanosis Edema: No Neurological: Yes: Alert, Oriented ...Motor Strength: WNL Psychiatric: Yes: WNL Labs: CBC, BMP 06/05/19 07:17 INR, PTT INR 1.03 (0.83-1.09) 05/31/19 13:17 - ....Imaging X-ray: Report Reviewed Other: Report Reviewed (PATH) Problem List - Problems (1) Back pain Assessment/Plan: Improved Continue brace, PT, pain management.. Code(s): M54.9 - DORSALGIA, UNSPECIFIED Qualifiers: Back pain laterality: left Sciatica presence: with sciatica Sciatica laterality: sciatica of left side (2) Renal insufficiency Assessment/Plan: BUN and creat stable Possibly ATN after an episode of hypoglycemia. 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
[2019-06-05] MEDS ORDERED: FUROSEMIDE 40 MG/4 ML INJECTABLE VIAL IVPUSH ONE (09:17)
--- NOTE | 2019-06-05 09:21 | PN ---
Progress Note, Physician - Current Medication List Current Medications: Active Medications Acetaminophen (Ofirmev Injection -) 1,000 mg IVPB Q6H PRN PRN Reason: PAIN LEVEL 6-10 Last Admin: 06/02/19 13:51 Dose: 1,000 mg Acetaminophen (Tylenol -) 325 mg PO Q6H PRN PRN Reason: PAIN LEVEL 4 - 6 Amlodipine Besylate (Norvasc -) 10 mg PO [facility]ILY [facility] Atenolol (Tenormin -) 50 mg PO DAILY [facility] Last Admin: 06/04/19 09:11 Dose: 50 mg Atorvastatin Calcium (Lipitor -) 40 mg PO HS [facility] Last Admin: 06/04/19 21:56 Dose: 40 mg Chlorthalidone (Hygroton -) 25 mg PO DAILY [facility] Last Admin: 06/04/19 11:29 Dose: 25 mg Furosemide (Lasix Injection -) 40 mg IVPUSH ONCE ONE Stop: 06/05/19 09:18 Cefazolin Sodium 1 gm/ (Dextrose) 50 mls @ 100 mls/hr IVPB BID [facility] Last Admin: 06/04/19 21:55 Dose: 100 mls/hr Insulin Aspart (Novolog Vial Sliding Scale -) 1 vial SQ ACHS [facility]; Protocol Last Admin: 06/05/19 06:10 Dose: Not Given Lidocaine (Lidoderm Patch -) 1 patch TP [facility] Last Admin: 06/04/19 21:55 Dose: 1 patch Lidocaine HCl (Xylocaine 2% Uro-Jet) 20 ml [place] TID PRN PRN Reason: PAIN Miscellaneous (Lidoderm Patch Removal) 1 each MC DAILY [facility] Last Admin: 06/04/19 11:29 Dose: 1 each Oxycodone HCl (Roxicodone -) 5 mg PO Q6H PRN PRN Reason: PAIN LEVEL 4 - 6 Pantoprazole Sodium (Protonix Iv) 40 mg IVPUSH BID [facility] Last Admin: 06/04/19 22:54 Dose: 40 mg Polyethylene Glycol (Miralax (For Daily Use) -) 17 gm PO DAILY [facility] Last Admin: 06/04/19 11:30 Dose: 17 grams - Objective Vital Signs: Vital Signs Temperature 98.2 F 06/05/19 06:00 Pulse Rate 69 06/05/19 06:00 Respiratory Rate 20 06/05/19 06:00 Blood Pressure 146/63 06/05/19 06:00 O2 Sat by Pulse Oximetry (%) 94 L 06/04/19 21:00 Constitutional: Yes: No Distress Eyes: Yes: Conjunctiva Clear Cardiovascular: Yes: Regular Rate and Rhythm Respiratory: Yes: Other (rales at bases b/l) Gastrointestinal: Yes: Soft Edema: Yes Edema: LLE: 2+, RLE: 2+ Neurological: Yes: Alert, Oriented Labs: CBC, BMP 06/05/19 07:17 INR, PTT INR 1.03 (0.83-1.09) 05/31/19 13:17 - ....Imaging X-ray: Image Reviewed (b/l effusions) EKG: Image Reviewed Assessment/Plan IMP: 1. Marked anemia, secondary to GI blood loss 2. Renal insufficiency, acute on chronic in setting of acute blood loss anemia, hypovolemia 3. Borderline elevated TnI: likely due to demand ischemia caused by profound anemia in setting of renal insufficiency 4. DM 5. Chronic HTN, now with hypotensive episodes in setting of #1 6. Fatigue/somnolence, probably multifactorial and due to anemia, CKD and opiate effect 7. Chronic LE edema, suspect component of venous stasis and possible diastolic dysfx REC: 1. Persistent anemia likely due to gastric ulcer, requiring transfusions, further w/u as per PMD/GI. 2. Cont norvasc 3. Echo with nl EF, now with edema and rales, mildly decompensated diastolic CHF. Agree w/ IV Lasix with close monitoring renal fx and lytes. 4. Borderline TnI w/ nl CK, flat trend and non-ischemic ECG likely demand ischemia, not ACS. Hold ASA. Continue statin.
[2019-06-05] MEDS ORDERED: amLODIPine BESYLATE 5 MG TABLET (FP) PO SCH (10:00)
[2019-06-05 10:35] LABS: BASO % 0.7 % (0-2.0); EOS % 3.2 % (0-4.5); HEMATOCRIT 27.5 % (32.4-45.2); HEMOGLOBIN 9.3 GM/dL (10.7-15.3); LYMPH % 15.8 % (8-40); MCH 25.5 pg (25.7-33.7); MEAN CELL VOLUME 75.4 fl (80-96); MEAN PLT VOLUME 8.2 fl (7.5-11.1); NEUT % 71.3 % (42.8-82.8); PLATELET COUNT 198 K/MM3 (134-434); RBC 3.65 M/mm3 (3.60-5.2); RDW 21.9 % (11.6-15.6); WHITE BLOOD COUNT 9.5 K/mm3 (4.0-10.0)
[2019-06-05 10:36] LABS: MCHC 33.9 g/dl (32.0-36.0)
[2019-06-05] MEDS ORDERED: FUROSEMIDE 40 MG/4 ML INJECTABLE VIAL ONE (10:46)
[2019-06-05] MEDS: PANTOPRAZOLE SODIUM 40 MG VIAL IVPUSH SCH (10:52)
[2019-06-05] MEDS: amLODIPine BESYLATE 10 MG TABLET (FP) PO SCH (10:52)
[2019-06-05] MEDS: CEFAZOLIN 1 GM in DEXTROSE 5%-WATER - 50 ML IVPB SCH (10:52)
[2019-06-05] MEDS: ATENOLOL 50 MG TABLET (FP) PO SCH (10:53)
[2019-06-05] MEDS: CHLORTHALIDONE 25 MG TABLET PO SCH (10:53)
[2019-06-05] MEDS: POLYETHYLENE GLYCOL 3350 119 GM BTL PO SCH (10:53)
[2019-06-05] MEDS: LIDOCAINE PATCH REMOVAL MC SCH (10:54)
[2019-06-05 12:19] LABS: ANISOCYTOSIS 2+; MACROCYTOSIS 0; PLATELET ESTIMATE NORMAL
--- NOTE | 2019-06-05 14:05 | PN ---
Progress Note (short form) - Note Progress Note: Resting in NAD on 2 L NC O2, saturation 98%. Breathing feels better after Lasix given yesterday. No acute events overnight. Intake & Output 06/02/19 06/03/19 06/04/19 06/05/19 23:59 23:59 23:59 23:59 Intake Total 2610 620 430 390 Balance 2610 620 430 390 Last Vital Signs Temp Pulse Resp BP Pulse Ox 97.7 F 71 20 182/71 H 98 06/05/19 10:00 06/05/19 10:00 06/05/19 10:00 06/05/19 10:00 06/05/19 09:00 Active Medications Acetaminophen (Ofirmev Injection -) 1,000 mg IVPB Q6H PRN PRN Reason: PAIN LEVEL 6-10 Last Admin: 06/02/19 13:51 Dose: 1,000 mg Acetaminophen (Tylenol -) 325 mg PO Q6H PRN PRN Reason: PAIN LEVEL 4 - 6 Amlodipine Besylate (Norvasc -) 10 mg PO DAILY [facility] Last Admin: 06/05/19 10:52 Dose: 10 mg Atenolol (Tenormin -) 50 mg PO DAILY [facility] Last Admin: 06/05/19 10:53 Dose: 50 mg Atorvastatin Calcium (Lipitor -) 40 mg PO [facility] Last Admin: 06/04/19 21:56 Dose: 40 mg Chlorthalidone (Hygroton -) 25 mg PO DAILY [facility] Last Admin: 06/05/19 10:53 Dose: 25 mg Cefazolin Sodium 1 gm/ (Dextrose) 50 mls @ 100 mls/hr IVPB BID [facility] Last Admin: 06/05/19 10:52 Dose: 100 mls/hr Insulin Aspart (Novolog Vial Sliding Scale -) 1 vial SQ ACHS [facility]; Protocol Last Admin: 06/05/19 13:00 Dose: 8 units Lidocaine (Lidoderm Patch -) 1 patch TP HS [facility] Last Admin: 06/04/19 21:55 Dose: 1 patch Lidocaine HCl (Xylocaine 2% Uro-Jet) 20 ml [place] TID PRN PRN Reason: PAIN Miscellaneous (Lidoderm Patch Removal) 1 each MC DAILY [facility] Last Admin: 06/05/19 10:54 Dose: 1 each Oxycodone HCl (Roxicodone -) 5 mg PO Q6H PRN PRN Reason: PAIN LEVEL 4 - 6 Pantoprazole Sodium (Protonix Iv) 40 mg IVPUSH BID [facility] Last Admin: 06/05/19 10:52 Dose: 40 mg Polyethylene Glycol (Miralax (For Daily Use) -) 17 gm PO DAILY [facility] Last Admin: 06/05/19 10:53 Dose: Not Given Constitutional: Yes: NAD Eyes: Yes: Conjunctiva Clear, EOM Intact HENT: Yes: Atraumatic, Normocephalic Neck: Yes: Supple, Trachea Midline Cardiovascular: Yes: Regular Rate and Rhythm Respiratory: Yes: Bibasilar rales / rhonchi ...Clubbing: No Gastrointestinal: Yes: Normal Bowel Sounds, Soft. No: Tenderness Edema: Yes Neurological: Yes: Alert, Oriented Labs: Laboratory Results - last 24 hr 06/04/19 06/04/19 06/04/19 05:17 09:40 15:00 WBC RBC Hgb Hct MCV MCH MCHC RDW Plt Count MPV Absolute Neuts (auto) Neutrophils % Lymphocytes % Monocytes % Eosinophils % Basophils % Nucleated RBC % Hypochromia Platelet Estimate Polychromasia Poikilocytosis Basophilic Stippling Anisocytosis Microcytosis Macrocytosis Sodium Potassium Chloride Carbon Dioxide Anion Gap BUN Creatinine Est GFR (CKD-EPI)AfAm Est GFR (CKD-EPI)NonAf POC Glucometer Random Glucose Calcium Total Bilirubin AST ALT Alkaline Phosphatase Total Protein Albumin Carcinoembryonic Ag 3.5 Urine Color Yellow Urine Appearance Clear Urine pH 5.0 Ur Specific [place] 1.011 Urine Protein Negative Urine Glucose (UA) 1+ H Urine Ketones Negative Urine Blood Negative Urine Nitrite Negative Urine Bilirubin Negative Urine Urobilinogen 0.2 Ur Leukocyte Esterase Negative Blood Type A POSITIVE Antibody Screen Negative Crossmatch See Detail 06/04/19 06/04/19 06/05/19 17:01 21:54 05:41 WBC RBC Hgb Hct MCV MCH MCHC RDW Plt Count MPV Absolute Neuts (auto) Neutrophils % Lymphocytes % Monocytes % Eosinophils % Basophils % Nucleated RBC % Hypochromia Platelet Estimate Polychromasia Poikilocytosis Basophilic Stippling Anisocytosis Microcytosis Macrocytosis Sodium Potassium Chloride Carbon Dioxide Anion Gap BUN Creatinine Est GFR (CKD-EPI)AfAm Est GFR (CKD-EPI)NonAf POC Glucometer 269 223 190 Random Glucose Calcium Total Bilirubin AST ALT Alkaline Phosphatase Total Protein Albumin Carcinoembryonic Ag Urine Color Urine Appearance Urine pH Ur Specific [place] Urine Protein Urine Glucose (UA) Urine Ketones Urine Blood Urine Nitrite Urine Bilirubin Urine Urobilinogen Ur Leukocyte Esterase Blood Type Antibody Screen Crossmatch 06/05/19 06/05/19 06/05/19 07:17 07:17 11:46 WBC 9.5 RBC 3.65 Hgb 9.3 L Hct 27.5 L D MCV 75.4 L MCH 25.5 L D MCHC 33.9 RDW 21.9 H Plt Count 198 MPV 8.2 Absolute Neuts (auto) 6.7 Neutrophils % 71.3 Lymphocytes % 15.8 Monocytes % 9.0 Eosinophils % 3.2 Basophils % 0.7 Nucleated RBC % 0 Hypochromia 0 Platelet Estimate Normal Polychromasia 0 Poikilocytosis 0 Basophilic Stippling 1+ Anisocytosis 2+ Microcytosis 2+ Macrocytosis 0 Sodium 142 Potassium 3.9 Chloride 109 H Carbon Dioxide 25 Anion Gap 8 BUN 48.1 H Creatinine 2.7 H Est GFR (CKD-EPI)AfAm 17.90 Est GFR (CKD-EPI)NonAf 15.45 POC Glucometer 369 Random Glucose 177 H Calcium 8.3 L Total Bilirubin 0.6 AST 20 ALT 19 Alkaline Phosphatase 98 Total Protein 5.6 L Albumin 2.5 L Carcinoembryonic Ag Urine Color Urine Appearance Urine pH Ur Specific [place] Urine Protein Urine Glucose (UA) Urine Ketones Urine Blood Urine Nitrite Urine Bilirubin Urine Urobilinogen Ur Leukocyte Esterase Blood Type Antibody Screen Crossmatch Assessment/Plan Symptomatic Anemia Gastric Ulcer/Hemorrhoids Acute on Chronic Diastolic Heart Failure +Troponins likely Demand Ischemia Acute on Chronic Renal Failure Bilateral Pleural effusions HTN DM - Lasix as tolerated - Monitor H/H - Normal transfusion thresholds - PPI - monitor urine output, creatinine - O2 to keep Spo2 >90% - Incentive spirometry - DVT prophylaxis Dr Rowley
--- NOTE | 2019-06-05 14:08 | PN ---
Progress Note, Physician History of Present Illness: Pt seen and examined at bedside. She is awake and alert. She denies shortness of breath. Her blood pressure is more stable. - Current Medication List Current Medications: Active Medications Acetaminophen (Ofirmev Injection -) 1,000 mg IVPB Q6H PRN PRN Reason: PAIN LEVEL 6-10 Last Admin: 06/02/19 13:51 Dose: 1,000 mg Acetaminophen (Tylenol -) 325 mg PO Q6H PRN PRN Reason: PAIN LEVEL 4 - 6 Amlodipine Besylate (Norvasc -) 10 mg PO DAILY [facility] Last Admin: 06/05/19 10:52 Dose: 10 mg Atenolol (Tenormin -) 50 mg PO DAILY [facility] Last Admin: 06/05/19 10:53 Dose: 50 mg Atorvastatin Calcium (Lipitor -) 40 mg PO [facility] Last Admin: 06/04/19 21:56 Dose: 40 mg Chlorthalidone (Hygroton -) 25 mg PO DAILY [facility] Last Admin: 06/05/19 10:53 Dose: 25 mg Cefazolin Sodium 1 gm/ (Dextrose) 50 mls @ 100 mls/hr IVPB BID [facility] Last Admin: 06/05/19 10:52 Dose: 100 mls/hr Insulin Aspart (Novolog Vial Sliding Scale -) 1 vial SQ ACHS [facility]; Protocol Last Admin: 06/05/19 13:00 Dose: 8 units Lidocaine (Lidoderm Patch -) 1 patch TP [facility] Last Admin: 06/04/19 21:55 Dose: 1 patch Lidocaine HCl (Xylocaine 2% Uro-Jet) 20 ml PA TID PRN PRN Reason: PAIN Miscellaneous (Lidoderm Patch Removal) 1 each MC DAILY [facility] Last Admin: 06/05/19 10:54 Dose: 1 each Oxycodone HCl (Roxicodone -) 5 mg PO Q6H PRN PRN Reason: PAIN LEVEL 4 - 6 Pantoprazole Sodium (Protonix Iv) 40 mg IVPUSH BID [facility] Last Admin: 06/05/19 10:52 Dose: 40 mg Polyethylene Glycol (Miralax (For Daily Use) -) 17 gm PO DAILY [facility] Last Admin: 06/05/19 10:53 Dose: Not Given - Objective Vital Signs: Vital Signs Temperature 97.7 F 06/05/19 10:00 Pulse Rate 71 06/05/19 10:00 Respiratory Rate 20 06/05/19 10:00 Blood Pressure 182/71 H 06/05/19 10:00 O2 Sat by Pulse Oximetry (%) 98 06/05/19 09:00 Constitutional: Yes: Calm Eyes: Yes: Conjunctiva Clear HENT: Yes: Atraumatic Neck: Yes: Supple Cardiovascular: Yes: S1, S2 Respiratory: Yes: CTA Bilaterally Gastrointestinal: Yes: Soft, Abdomen, Obese Genitourinary: Yes: WNL Musculoskeletal: Yes: WNL Edema: Yes Edema: LLE: 1+, RLE: 1+ Neurological: Yes: Oriented Psychiatric: Yes: Oriented Labs: CBC, BMP 06/05/19 07:17 06/05/19 07:17 INR, PTT INR 1.03 (0.83-1.09) 05/31/19 13:17 Problem List - Problems (1) Anemia Code(s): D64.9 - ANEMIA, UNSPECIFIED Qualifiers: Anemia type: unspecified type Qualified Code(s): D64.9 - Anemia, unspecified (2) Back pain Code(s): M54.9 - DORSALGIA, UNSPECIFIED Qualifiers: Back pain laterality: left Sciatica presence: with sciatica Sciatica laterality: sciatica of left side (3) Hypoglycemia Code(s): E16.2 - HYPOGLYCEMIA, UNSPECIFIED (4) Renal insufficiency Code(s): N28.9 - DISORDER OF KIDNEY AND URETER, UNSPECIFIED Assessment/Plan Current Medications Generic Name Dose Route Start Last Admin Trade Name Freq PRN Reason Stop Dose Admin Acetaminophen 1,000 mg 05/31/19 17:11 06/02/19 13:51 Ofirmev Injection - IVPB 1,000 mg Q6H PRN Administration PAIN LEVEL 6-10 Acetaminophen 325 mg 06/03/19 14:11 Tylenol - PO Q6H PRN PAIN LEVEL 4 - 6 Amlodipine Besylate 10 mg 06/05/19 10:00 06/05/19 10:52 Norvasc - PO 10 mg DAILY [facility] Administration Atenolol 50 mg 06/04/19 10:00 06/05/19 10:53 Tenormin - PO 50 mg DAILY [facility] Administration Atorvastatin Calcium 40 mg 06/01/19 22:00 06/04/19 21:56 Lipitor - PO 40 mg HS [facility] Administration Chlorthalidone 25 mg 06/04/19 10:00 06/05/19 10:53 Hygroton - PO 25 mg DAILY [facility] Administration Cefazolin Sodium 1 gm/ 50 mls @ 100 mls/hr 06/03/19 22:00 06/05/19 10:52 Dextrose IVPB 100 mls/hr BID [facility] Administration Insulin Aspart 1 vial 06/01/19 11:00 06/05/19 13:00 Novolog Vial Sliding Scale - SQ 8 units ACHS [facility] Administration Protocol Lidocaine 1 patch 05/31/19 22:00 06/04/19 21:55 Lidoderm Patch - TP 1 patch HS [facility] Administration Lidocaine HCl 20 ml 06/03/19 13:58 Xylocaine 2% Uro-Jet PA TID PRN PAIN Miscellaneous 1 each 06/01/19 10:00 06/05/19 10:54 Lidoderm Patch Removal MC 1 each DAILY [facility] Administration Oxycodone HCl 5 mg 06/03/19 14:11 Roxicodone - PO Q6H PRN PAIN LEVEL 4 - 6 Pantoprazole Sodium 40 mg 06/02/19 22:00 06/05/19 10:52 Protonix Iv IVPUSH 40 mg BID [facility] Administration Polyethylene Glycol 17 gm 06/04/19 10:00 06/05/19 10:53 Miralax (For Daily Use) - PO Not Given DAILY [facility] Laboratory Tests 06/04/19 15:00 Urine Protein Negative Urine Blood Negative 84 year old female with pmhx of ckd, DM, HTN, HLD, chronic pancreatitis, L4 fracture and anemia presents with hypoglycemia. 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 CKD / TIFFANY with ATN as working diagnosis 2. DM 3. HTN 4. anemia 5. L4 fracture 6. HLD 7. chronic pancreatitis Plan - ua neg for blood or protein - renal function at baseline - pt will follow with Dr Hernandez - monitor bp - discussed with family - avoid nephrotoxins - will follow PRN
--- NOTE | 2019-06-05 14:17 | PN.GI ---
GI Progress Note Subjective: GI NOte: No overt bleeding. Stool was brown this AM. Hb 9.3. Biopsies reveal intestinal metaplasia at the cardia but no malignancy. I did again advised a repeat EGD in 3 months to absolutely exclude a malignant ulcer and to continue PPI BID until then. I also asked for her to avoid NSAIDs. She is iron deficient so I will order venofer. Anal pain is tolerable. Advised Miralax lifelong as I suspect that constipation has perpetuated her hemorrhoids. - Objective Vital Signs: Vital Signs Temperature 97.7 F 06/05/19 10:00 Pulse Rate 71 06/05/19 10:00 Respiratory Rate 20 06/05/19 10:00 Blood Pressure 182/71 H 06/05/19 10:00 O2 Sat by Pulse Oximetry (%) 98 06/05/19 09:00 Laboratory Tests 05/31/19 06/03/19 06/04/19 14:06 06:20 05:17 Hgb BUN 62.2 H 53.5 H Creatinine Iron 17 L Iron Saturation 6 L Ferritin 28.3 06/04/19 06/05/19 06/05/19 05:17 07:17 07:17 Hgb 6.9 L* 9.3 L BUN 48.1 H Creatinine 2.7 H Iron Iron Saturation Ferritin Constitutional: No Distress ...Auscultate: Yes: Normoactive Bowel Sounds ...Palpate: Yes: Soft, Other (nontender) Labs: CBC, BMP 06/05/19 07:17 06/05/19 07:17 INR, PTT INR 1.03 (0.83-1.09) 05/31/19 13:17 Assessment/Plan Assessment: - - Rectal bleeding from banded internal hemorrhoid - Profound anemia from gastric ulcer which was apparently not evident at recent EUS. - Gastric cardia with intestinal metaplasia but no malignancy. Plan: -- Stop PPI drip, give po BID -- Sitz baths for rubber band ligation discomfort. -- Stop Kefzol prophylaxis -- Repeat EGD in 3 months -- No GI objections to discharge Dr. Dee will be covering this weekend Problem List - Problems (1) Gastric ulcer Code(s): K25.9 - GASTRIC ULCER, UNSP ACUTE OR CHRONIC, W/O HEMOR OR PERF (2) Bleeding internal hemorrhoids Code(s): K64.8 - OTHER HEMORRHOIDS (3) Rectal bleed Code(s): K62.5 - HEMORRHAGE OF ANUS AND RECTUM (4) Anemia Code(s): D64.9 - ANEMIA, UNSPECIFIED Qualifiers: Anemia type: unspecified type Qualified Code(s): D64.9 - Anemia, unspecified (5) Renal insufficiency Code(s): N28.9 - DISORDER OF KIDNEY AND URETER, UNSPECIFIED (6) Diabetes mellitus Code(s): E11.9 - TYPE 2 DIABETES MELLITUS WITHOUT COMPLICATIONS (7) Chronic pancreatitis Code(s): K86.1 - OTHER CHRONIC PANCREATITIS (8) Intestinal metaplasia of gastric cardia Code(s): K31.89 - OTHER DISEASES OF STOMACH AND DUODENUM (9) Iron deficiency anemia due to chronic blood loss Code(s): D50.0 - IRON DEFICIENCY ANEMIA SECONDARY TO BLOOD LOSS (CHRONIC)
[2019-06-05] MEDS ORDERED: IRON SUCROSE INJECTION 200 MG in SODIUM CHLORIDE 90 ML IVPB ONE (14:21)
[2019-06-05 17:29] LABS: URINE APPEARANCE CLEAR; URINE BILIRUBIN NEGATIVE (NEGATIVE); URINE COLOR YELLOW; URINE GLUCOSE (UA) 1+ (NEGATIVE); URINE KETONE NEGATIVE (NEGATIVE); URINE LEUK ESTERASE NEGATIVE (NEGATIVE); URINE NITRITE NEGATIVE (NEGATIVE); URINE PROTEIN NEGATIVE (NEGATIVE); URINE UROBILINOGEN 0.2 mg/dL (0.2-1.0)
[2019-06-05 17:36] LABS: URINE CREATININE < 13.0 mg/dL (20-275)
[2019-06-05] MEDS ORDERED: amLODIPine BESYLATE 5 MG TABLET (FP) PO ONE (18:14)
[2019-06-05] MEDS: PANTOPRAZOLE 40 MG TABLET (FP) PO SCH (22:33)
[2019-06-05] MEDS: LIDOCAINE 5% TOPICAL PATCH TP SCH (22:33)
[2019-06-05] MEDS: ATORVASTATIN CA 40 MG TABLET (FP) PO SCH (22:33)
[2019-06-06] MEDS: INSULIN SLIDING SCALE (NOVOLOG) 1 VIAL SQ SCH ×4 (06:35→21:53)
[2019-06-06 08:59] LABS: ALBUMIN 2.3 g/dl (3.4-5.0); BILIRUBIN,TOTAL 0.4 mg/dL (0.2-1); BLOOD UREA NITROGEN 48.2 mg/dL (7-18); CALCIUM 8.1 mg/dL (8.5-10.1); CREATININE 2.7 mg/dL (0.55-1.3); POTASSIUM 3.5 mmol/L (3.5-5.1); TOT PROT 5.1 g/dl (6.4-8.2)
[2019-06-06 09:02] LABS: BASO % 0.7 % (0-2.0); EOS % 2.4 % (0-4.5); HEMATOCRIT 26.3 % (32.4-45.2); HEMOGLOBIN 8.7 GM/dL (10.7-15.3); LYMPH % 15.8 % (8-40); MCHC 33.2 g/dl (32.0-36.0); MEAN CELL VOLUME 75.2 fl (80-96); MEAN PLT VOLUME 8.1 fl (7.5-11.1); MONO % 9.1 % (3.8-10.2); PLATELET COUNT 196 K/MM3 (134-434); RBC 3.49 M/mm3 (3.60-5.2); RDW 22.4 % (11.6-15.6)
--- NOTE | 2019-06-06 10:27 | PN ---
Progress Note, Physician History of Present Illness: No CV complaints this AM Tele: NSR - Current Medication List Current Medications: Active Medications Acetaminophen (Ofirmev Injection -) 1,000 mg IVPB Q6H PRN PRN Reason: PAIN LEVEL 6-10 Last Admin: 06/02/19 13:51 Dose: 1,000 mg Acetaminophen (Tylenol -) 325 mg PO Q6H PRN PRN Reason: PAIN LEVEL 4 - 6 Amlodipine Besylate (Norvasc -) 10 mg PO DAILY [facility] Last Admin: 06/05/19 10:52 Dose: 10 mg Atenolol (Tenormin -) 50 mg PO DAILY [facility] Last Admin: 06/05/19 10:53 Dose: 50 mg Atorvastatin Calcium (Lipitor -) 40 mg PO HS [facility] Last Admin: 06/05/19 22:33 Dose: 40 mg Chlorthalidone (Hygroton -) 25 mg PO DAILY [facility] Last Admin: 06/05/19 10:53 Dose: 25 mg Insulin Aspart (Novolog Vial Sliding Scale -) 1 vial SQ [facility]; Protocol Last Admin: 06/06/19 06:35 Dose: 2 units Lidocaine (Lidoderm Patch -) 1 patch TP [facility] Last Admin: 06/05/19 22:33 Dose: 1 patch Lidocaine HCl (Xylocaine 2% Uro-Jet) 20 ml IN TID PRN PRN Reason: PAIN Miscellaneous (Lidoderm Patch Removal) 1 each MC DAILY [facility] Last Admin: 06/05/19 10:54 Dose: 1 each Oxycodone HCl (Roxicodone -) 5 mg PO Q6H PRN PRN Reason: PAIN LEVEL 4 - 6 Pantoprazole Sodium (Protonix -) 40 mg PO BID [facility] Last Admin: 06/05/19 22:33 Dose: 40 mg Polyethylene Glycol (Miralax (For Daily Use) -) 17 gm PO DAILY [facility] Last Admin: 06/05/19 10:53 Dose: Not Given - Objective Vital Signs: Vital Signs Temperature 98.8 F 06/06/19 08:48 Pulse Rate 73 06/06/19 08:48 Respiratory Rate 18 06/06/19 08:50 Blood Pressure 139/62 06/06/19 08:48 O2 Sat by Pulse Oximetry (%) 95 06/06/19 08:50 Constitutional: Yes: Well Nourished Eyes: Yes: WNL Cardiovascular: Yes: Regular Rate and Rhythm Respiratory: Yes: Diminished Labs: CBC, BMP 06/06/19 06:08 06/06/19 06:08 INR, PTT INR 1.03 (0.83-1.09) 05/31/19 13:17 Assessment/Plan IMP: 1. Marked anemia, secondary to GI blood loss 2. Renal insufficiency, acute on chronic in setting of acute blood loss anemia, hypovolemia 3. Borderline elevated TnI: likely due to demand ischemia caused by profound anemia in setting of renal insufficiency 4. DM 5. Chronic HTN, now with hypotensive episodes in setting of #1 6. Fatigue/somnolence, probably multifactorial and due to anemia, CKD and opiate effect 7. Chronic LE edema, suspect component of venous stasis and possible diastolic dysfx REC: 1. Persistent anemia likely due to gastric ulcer, requiring transfusions, further w/u as per PMD/GI. 2. Cont norvasc 3. mildly decompensated diastolic CHF. Lasix help with sCreat 2.7 today 4. Borderline TnI w/ nl CK, flat trend and non-ischemic ECG likely demand ischemia, not ACS. Hold ASA. Continue statin.
[2019-06-06] MEDS ORDERED: PT OWN MED DRAWER 7, Y5N ONE (10:28)
[2019-06-06] MEDS: PANTOPRAZOLE 40 MG TABLET (FP) PO SCH ×2 (10:29→21:52)
[2019-06-06] MEDS: ATENOLOL 50 MG TABLET (FP) PO SCH (10:30)
[2019-06-06] MEDS: CHLORTHALIDONE 25 MG TABLET PO SCH (10:30)
[2019-06-06] MEDS: amLODIPine BESYLATE 10 MG TABLET (FP) PO SCH (10:30)
[2019-06-06] MEDS: POLYETHYLENE GLYCOL 3350 119 GM BTL PO SCH (10:30)
[2019-06-06] MEDS: LIDOCAINE PATCH REMOVAL MC SCH (10:32)
[2019-06-06] MEDS ORDERED: INSULIN (NOVOLOG) ASPART 100 UNITS/ML 10ML VIAL ONE (11:49)
--- NOTE | 2019-06-06 15:39 | PN ---
Progress Note (short form) - Note Progress Note: PULMONARY States breathing is improving. No chest pain, cough or wheezing. Vital Signs Period Temp Pulse Resp BP Sys/Escalante Pulse Ox Last 24 Hr 97.8 F-99.2 F 65-73 18-18 121-158/57-68 95-95 Gen: NAD at rest Heart: RRR Lung: decreased breath sounds at the bases Abd: soft, nontender Ext: + edema CBC, BMP 06/06/19 06:08 06/06/19 06:08 Active Medications Acetaminophen (Ofirmev Injection -) 1,000 mg IVPB Q6H PRN PRN Reason: PAIN LEVEL 6-10 Last Admin: 06/02/19 13:51 Dose: 1,000 mg Acetaminophen (Tylenol -) 325 mg PO Q6H PRN PRN Reason: PAIN LEVEL 4 - 6 Amlodipine Besylate (Norvasc -) 10 mg PO DAILY [facility] Last Admin: 06/06/19 10:30 Dose: 10 mg Atenolol (Tenormin -) 50 mg PO DAILY [facility] Last Admin: 06/06/19 10:30 Dose: 50 mg Atorvastatin Calcium (Lipitor -) 40 mg PO HS [facility] Last Admin: 06/05/19 22:33 Dose: 40 mg Chlorthalidone (Hygroton -) 25 mg PO DAILY [facility] Last Admin: 06/06/19 10:30 Dose: 25 mg Insulin Aspart (Novolog Vial Sliding Scale -) 1 vial SQ ACHS [facility]; Protocol Last Admin: 06/06/19 11:55 Dose: 2 units Lidocaine (Lidoderm Patch -) 1 patch TP [facility] Last Admin: 06/05/19 22:33 Dose: 1 patch Lidocaine HCl (Xylocaine 2% Uro-Jet) 20 ml [place] TID PRN PRN Reason: PAIN Miscellaneous (Lidoderm Patch Removal) 1 each MC DAILY [facility] Last Admin: 06/06/19 10:32 Dose: 1 each Pantoprazole Sodium (Protonix -) 40 mg PO BID [facility] Last Admin: 06/06/19 10:29 Dose: 40 mg Polyethylene Glycol (Miralax (For Daily Use) -) 17 gm PO DAILY [facility] Last Admin: 06/06/19 10:30 Dose: Not Given A/P Symptomatic Anemia Gastric Ulcer/Hemorrhoids Acute on Chronic Diastolic Heart Failure +Troponins likely Demand Ischemia Acute on Chronic Renal Failure HTN DM - monitor H/H - transfuse as needed - protonix - lasix as needed - monitor urine output, creatinine - repeat CXR in AM - O2 to keep Spo2 >90% - incentive spirometry - DVT prophylaxis
--- NOTE | 2019-06-06 16:02 | PN ---
Physical Exam: SUBJECTIVE: Patient seen and examined. States breathing is improving. No chest pain, cough or wheezing, no n/v/d OBJECTIVE: Vital Signs Period Temp Pulse Resp BP Sys/Escalante Pulse Ox Last 24 Hr 97.8 F-99.2 F 65-73 18-18 121-158/57-68 95-95 GENERAL: The patient is awake, alert, and fully oriented, in no acute distress. HEAD: Normal with no signs of trauma. EYES: PERRL, extraocular movements intact, sclera anicteric, conjunctiva clear. No ptosis. ENT: Ears normal, nares patent, oropharynx clear without exudates, moist mucous membranes. NECK: Trachea midline, full range of motion, supple. LUNGS: Breath sounds equal, clear to auscultation bilaterally, no wheezes, no crackles, no accessory muscle use. HEART: Regular rate and rhythm, S1, S2 ABDOMEN: Soft, nontender, nondistended, normoactive bowel sounds, no guarding, no rebound, no hepatosplenomegaly, no masses. EXTREMITIES: 2+ pulses, warm, well-perfused, Bilateral lower leg Edema NEUROLOGICAL: Normal speech, gait not observed. PSYCH: Normal mood, normal affect. SKIN: Warm, dry, normal turgor, no rashes or lesions noted Laboratory Results - last 24 hr 06/05/19 06/05/19 06/05/19 15:45 15:45 16:58 WBC RBC Hgb Hct MCV MCH MCHC RDW Plt Count MPV Absolute Neuts (auto) Neutrophils % Lymphocytes % Monocytes % Eosinophils % Basophils % Nucleated RBC % Sodium Potassium Chloride Carbon Dioxide Anion Gap BUN Creatinine Est GFR (CKD-EPI)AfAm Est GFR (CKD-EPI)NonAf POC Glucometer 234 Random Glucose Calcium Total Bilirubin AST ALT Alkaline Phosphatase Troponin I Total Protein Albumin Urine Color Yellow Urine Appearance Clear Urine pH 5.0 Ur Specific [place] 1.008 L Urine Protein Negative Urine Glucose (UA) 1+ H Urine Ketones Negative Urine Blood Negative Urine Nitrite Negative Urine Bilirubin Negative Urine Urobilinogen 0.2 Ur Leukocyte Esterase Negative U Random Total Protein 15.9 H Urine Creatinine < 13.0 L Protein/Creatinin Ratio 1.000 06/05/19 06/05/19 06/06/19 17:50 22:32 05:57 WBC RBC Hgb Hct MCV MCH MCHC RDW Plt Count MPV Absolute Neuts (auto) Neutrophils % Lymphocytes % Monocytes % Eosinophils % Basophils % Nucleated RBC % Sodium Potassium Chloride Carbon Dioxide Anion Gap BUN Creatinine Est GFR (CKD-EPI)AfAm Est GFR (CKD-EPI)NonAf POC Glucometer 196 204 Random Glucose Calcium Total Bilirubin AST ALT Alkaline Phosphatase Troponin I 0.06 H Total Protein Albumin Urine Color Urine Appearance Urine pH Ur Specific [place] Urine Protein Urine Glucose (UA) Urine Ketones Urine Blood Urine Nitrite Urine Bilirubin Urine Urobilinogen Ur Leukocyte Esterase U Random Total Protein Urine Creatinine Protein/Creatinin Ratio 06/06/19 06/06/19 06/06/19 06:08 06:08 11:37 WBC 9.0 RBC 3.49 L Hgb 8.7 L Hct 26.3 L MCV 75.2 L MCH 25.0 L MCHC 33.2 RDW 22.4 H Plt Count 196 MPV 8.1 Absolute Neuts (auto) 6.5 Neutrophils % 72.0 Lymphocytes % 15.8 Monocytes % 9.1 Eosinophils % 2.4 Basophils % 0.7 Nucleated RBC % 0 Sodium 141 Potassium 3.5 Chloride 107 Carbon Dioxide 25 Anion Gap 9 BUN 48.2 H Creatinine 2.7 H Est GFR (CKD-EPI)AfAm 17.90 Est GFR (CKD-EPI)NonAf 15.45 POC Glucometer 233 Random Glucose 194 H Calcium 8.1 L Total Bilirubin 0.4 AST 16 ALT 10 L Alkaline Phosphatase 87 Troponin I Total Protein 5.1 L Albumin 2.3 L Urine Color Urine Appearance Urine pH Ur Specific [place] Urine Protein Urine Glucose (UA) Urine Ketones Urine Blood Urine Nitrite Urine Bilirubin Urine Urobilinogen Ur Leukocyte Esterase U Random Total Protein Urine Creatinine Protein/Creatinin Ratio Active Medications Generic Name Dose Route Start Last Admin Trade Name Freq PRN Reason Stop Dose Admin Acetaminophen 1,000 mg 05/31/19 17:11 06/02/19 13:51 Ofirmev Injection - IVPB 1,000 mg Q6H PRN Administration PAIN LEVEL 6-10 Acetaminophen 325 mg 06/03/19 14:11 Tylenol - PO Q6H PRN PAIN LEVEL 4 - 6 Amlodipine Besylate 10 mg 06/05/19 10:00 06/06/19 10:30 Norvasc - PO 10 mg DAILY [facility] Administration Atenolol 50 mg 06/04/19 10:00 06/06/19 10:30 Tenormin - PO 50 mg DAILY [facility] Administration Atorvastatin Calcium 40 mg 06/01/19 22:00 06/05/19 22:33 Lipitor - PO 40 mg HS [facility] Administration Chlorthalidone 25 mg 06/04/19 10:00 06/06/19 10:30 Hygroton - PO 25 mg DAILY [facility] Administration Insulin Aspart 1 vial 06/01/19 11:00 06/06/19 11:55 Novolog Vial Sliding Scale - SQ 2 units ACHS [facility] Administration Protocol Lidocaine 1 patch 05/31/19 22:00 06/05/19 22:33 Lidoderm Patch - TP 1 patch HS [facility] Administration Lidocaine HCl 20 ml 06/03/19 13:58 Xylocaine 2% Uro-Jet DC TID PRN PAIN Miscellaneous 1 each 06/01/19 10:00 06/06/19 10:32 Lidoderm Patch Removal MC 1 each DAILY [facility] Administration Pantoprazole Sodium 40 mg 06/05/19 22:00 06/06/19 10:29 Protonix - PO 40 mg BID [facility] Administration Polyethylene Glycol 17 gm 06/04/19 10:00 06/06/19 10:30 Miralax (For Daily Use) - PO Not Given DAILY [facility] ASSESSMENT/PLAN: Assessment 1. CKD / TIFFANY with ATN as working diagnosis 2. DM 3. HTN 4. anemia 5. L4 fracture 6. HLD 7. chronic pancreatitis Plan -Persistent anemia likely due to gastric ulcer -Cont norvasc--mildly decompensated diastolic CHF. Lasix help with sCreat 2.7 today -Per Cardiology- - Borderline TnI w/ nl CK, flat trend and non-ischemic ECG likely demand ischemia, not ACS. --Hold ASA --Continue statin. - ua neg for blood or protein - renal function at baseline - pt will follow with Dr Hernandez - monitor bp - avoid nephrotoxin -monitor H/H -transfuse as needed -protonix -lasix as needed -monitor urine output, creatinine -repeat CXR in AM -O2 to keep Spo2 >90% -incentive spirometry -DVT prophylaxis -Sliding Scale -levemir 34 units HS Visit type - Emergency Visit Emergency Visit: Yes ED Registration Date: 05/31/19 Care time: The patient presented to the Emergency Department on the above date and was hospitalized for further evaluation of their emergent condition. - New Patient This patient is new to me today: Yes Date on this admission: 06/06/19 - Critical Care Critical Care patient: No
[2019-06-06 18:53] LABS: HEMATOCRIT 28.2 % (32.4-45.2); HEMOGLOBIN 10.3 GM/dL (10.7-15.3); MCH 30.3 pg (25.7-33.7); MCHC 36.5 g/dl (32.0-36.0); MEAN CELL VOLUME 83.1 fl (80-96); MEAN PLT VOLUME 8.2 fl (7.5-11.1); PLATELET COUNT 222 K/MM3 (134-434); RDW 21.6 % (11.6-15.6); WHITE BLOOD COUNT 9.8 K/mm3 (4.0-10.0)
[2019-06-06 19:03] LABS: BLOOD UREA NITROGEN 45.9 mg/dL (7-18); CALCIUM 8.1 mg/dL (8.5-10.1); CREATININE 2.9 mg/dL (0.55-1.3)
[2019-06-06] MEDS: ATORVASTATIN CA 40 MG TABLET (FP) PO SCH (21:52)
[2019-06-06] MEDS: LIDOCAINE 5% TOPICAL PATCH TP SCH (21:53)
[2019-06-06] MEDS: INSULIN (LEVEMIR) 100 UNITS/ML UNITS SQ SCH (21:53)
[2019-06-07] MEDS: INSULIN SLIDING SCALE (NOVOLOG) 1 VIAL SQ SCH ×4 (06:03→22:22)
--- NOTE | 2019-06-07 07:48 | PN ---
Physical Exam: SUBJECTIVE: Patient seen and examined. Patient seen and examined. States breathing is improving. No chest pain, cough or wheezing, [facility] OBJECTIVE: Vital Signs Period Temp Pulse Resp BP Sys/Escalante Pulse Ox Last 24 Hr 97.9 F-98.8 F 64-73 18-18 130-149/53-70 95-95 GENERAL: The patient is awake, alert, and fully oriented, in no acute distress. HEAD: Normal with no signs of trauma. EYES: PERRL, extraocular movements intact, sclera anicteric, conjunctiva clear. No ptosis. ENT: Ears normal, nares patent, oropharynx clear without exudates, moist mucous membranes. NECK: Trachea midline, full range of motion, supple. LUNGS: Diminished breath sounds as bases. No wheezes, crackles, no accessory muscle use. HEART: Regular rate and rhythm, S1, S2 ABDOMEN: Soft, nontender, nondistended, normoactive bowel sounds, no guarding, no rebound, no hepatosplenomegaly, no masses. EXTREMITIES: 2+ pulses, warm, well-perfused, Bilateral lower leg Edema NEUROLOGICAL: Normal speech, gait not observed. PSYCH: Normal mood, normal affect. SKIN: Warm, dry, normal turgor, no rashes or lesions noted Laboratory Results - last 24 hr 06/06/19 06/06/19 06/06/19 06:08 06:08 11:37 WBC 9.0 RBC 3.49 L Hgb 8.7 L Hct 26.3 L MCV 75.2 L MCH 25.0 L MCHC 33.2 RDW 22.4 H Plt Count 196 MPV 8.1 Absolute Neuts (auto) 6.5 Neutrophils % 72.0 Lymphocytes % 15.8 Monocytes % 9.1 Eosinophils % 2.4 Basophils % 0.7 Nucleated RBC % 0 Sodium 141 Potassium 3.5 Chloride 107 Carbon Dioxide 25 Anion Gap 9 BUN 48.2 H Creatinine 2.7 H Est GFR (CKD-EPI)AfAm 17.90 Est GFR (CKD-EPI)NonAf 15.45 POC Glucometer 233 Random Glucose 194 H Calcium 8.1 L Total Bilirubin 0.4 AST 16 ALT 10 L Alkaline Phosphatase 87 Total Protein 5.1 L Albumin 2.3 L 06/06/19 06/06/19 06/06/19 17:01 17:45 17:45 WBC 9.8 RBC 3.40 L Hgb 10.3 L Hct 28.2 L MCV 83.1 D MCH 30.3 D MCHC 36.5 H RDW 21.6 H Plt Count 222 MPV 8.2 Absolute Neuts (auto) Neutrophils % Lymphocytes % Monocytes % Eosinophils % Basophils % Nucleated RBC % Sodium 141 Potassium 4.0 Chloride 106 Carbon Dioxide 24 Anion Gap 12 BUN 45.9 H Creatinine 2.9 H Est GFR (CKD-EPI)AfAm 16.42 Est GFR (CKD-EPI)NonAf 14.17 POC Glucometer 309 Random Glucose 352 H* Calcium 8.1 L Total Bilirubin AST ALT Alkaline Phosphatase Total Protein Albumin 06/06/19 06/07/19 21:45 05:32 WBC RBC Hgb Hct MCV MCH MCHC RDW Plt Count MPV Absolute Neuts (auto) Neutrophils % Lymphocytes % Monocytes % Eosinophils % Basophils % Nucleated RBC % Sodium Potassium Chloride Carbon Dioxide Anion Gap BUN Creatinine Est GFR (CKD-EPI)AfAm Est GFR (CKD-EPI)NonAf POC Glucometer 260 146 Random Glucose Calcium Total Bilirubin AST ALT Alkaline Phosphatase Total Protein Albumin Active Medications Generic Name Dose Route Start Last Admin Trade Name Freq PRN Reason Stop Dose Admin Acetaminophen 1,000 mg 05/31/19 17:11 06/02/19 13:51 Ofirmev Injection - IVPB 1,000 mg Q6H PRN Administration PAIN LEVEL 6-10 Acetaminophen 325 mg 06/03/19 14:11 Tylenol - PO Q6H PRN PAIN LEVEL 4 - 6 Amlodipine Besylate 10 mg 06/05/19 10:00 06/06/19 10:30 Norvasc - PO 10 mg DAILY [facility] Administration Atenolol 50 mg 06/04/19 10:00 06/06/19 10:30 Tenormin - PO 50 mg DAILY [facility] Administration Atorvastatin Calcium 40 mg 06/01/19 22:00 06/06/19 21:52 Lipitor - PO 40 mg HS [facility] Administration Chlorthalidone 25 mg 06/04/19 10:00 06/06/19 10:30 Hygroton - PO 25 mg DAILY [facility] Administration Insulin Aspart 1 vial 06/01/19 11:00 06/07/19 06:03 Novolog Vial Sliding Scale - SQ Not Given ACHS [facility] Protocol Insulin Detemir 34 units 06/06/19 22:00 06/06/19 21:53 Levemir Vial SQ Not Given HS [facility] Lidocaine 1 patch 05/31/19 22:00 06/06/19 21:53 Lidoderm Patch - TP 1 patch HS [facility] Administration Lidocaine HCl 20 ml 06/03/19 13:58 Xylocaine 2% Uro-Jet UT TID PRN PAIN Miscellaneous 1 each 06/01/19 10:00 06/06/19 10:32 Lidoderm Patch Removal MC 1 each DAILY [facility] Administration Pantoprazole Sodium 40 mg 06/05/19 22:00 06/06/19 21:52 Protonix - PO 40 mg BID [facility] Administration Polyethylene Glycol 17 gm 06/04/19 10:00 06/06/19 10:30 Miralax (For Daily Use) - PO Not Given DAILY [facility] ASSESSMENT/PLAN: Assessment 1. CKD / TIFFANY with ATN as working diagnosis 2. DM 3. HTN 4. anemia 5. L4 fracture 6. HLD 7. chronic pancreatitis Plan -Persistent anemia likely due to gastric ulcer -Cont norvasc--mildly decompensated diastolic CHF. Lasix help with sCreat 2.7 today -Per Pulmonary - - Borderline TnI w/ nl CK, flat trend and non-ischemic ECG likely demand ischemia, not ACS. --Hold ASA --Continue statin. - ua neg for blood or protein - renal function at baseline - pt will follow with Dr Hernandez - monitor bp - avoid nephrotoxin -monitor H/H (hgb 9.7) (Hem 28.4) -transfuse as needed -protonix -CXR-improvement -Hold Lasix today per Cardiology due to Cr 2.3 -monitor urine output, creatinine -repeat CXR in AM -O2 to keep Spo2 >90% -incentive spirometry -DVT prophylaxis -Sliding Scale -levemir 34 units HS Visit type - Emergency Visit Emergency Visit: Yes ED Registration Date: 05/31/19 Care time: The patient presented to the Emergency Department on the above date and was hospitalized for further evaluation of their emergent condition. - New Patient This patient is new to me today: Yes Date on this admission: 06/07/19 - Critical Care Critical Care patient: No
[2019-06-07] MEDS: ATENOLOL 50 MG TABLET (FP) PO SCH (09:16)
[2019-06-07] MEDS: CHLORTHALIDONE 25 MG TABLET PO SCH (09:16)
[2019-06-07] MEDS: amLODIPine BESYLATE 10 MG TABLET (FP) PO SCH (09:16)
[2019-06-07] MEDS: PANTOPRAZOLE 40 MG TABLET (FP) PO SCH ×2 (09:16→22:22)
--- NOTE | 2019-06-07 10:38 | PN ---
Progress Note, Physician History of Present Illness: No Cv complaints Breathing improved Tele:NSR - Current Medication List Current Medications: Active Medications Acetaminophen (Ofirmev Injection -) 1,000 mg IVPB Q6H PRN PRN Reason: PAIN LEVEL 6-10 Last Admin: 06/02/19 13:51 Dose: 1,000 mg Acetaminophen (Tylenol -) 325 mg PO Q6H PRN PRN Reason: PAIN LEVEL 4 - 6 Amlodipine Besylate (Norvasc -) 10 mg PO DAILY [facility] Last Admin: 06/07/19 09:16 Dose: 10 mg Atenolol (Tenormin -) 50 mg PO DAILY [facility] Last Admin: 06/07/19 09:16 Dose: 50 mg Atorvastatin Calcium (Lipitor -) 40 mg PO HS [facility] Last Admin: 06/06/19 21:52 Dose: 40 mg Chlorthalidone (Hygroton -) 25 mg PO DAILY [facility] Last Admin: 06/07/19 09:16 Dose: 25 mg Insulin Aspart (Novolog Vial Sliding Scale -) 1 vial SQ [facility]; Protocol Last Admin: 06/07/19 06:03 Dose: Not Given Insulin Detemir (Levemir Vial) 34 units SQ [facility] Last Admin: 06/06/19 21:53 Dose: Not Given Lidocaine (Lidoderm Patch -) 1 patch TP [facility] Last Admin: 06/06/19 21:53 Dose: 1 patch Lidocaine HCl (Xylocaine 2% Uro-Jet) 20 ml [place] TID PRN PRN Reason: PAIN Miscellaneous (Lidoderm Patch Removal) 1 each MC DAILY [facility] Last Admin: 06/06/19 10:32 Dose: 1 each Pantoprazole Sodium (Protonix -) 40 mg PO BID [facility] Last Admin: 06/07/19 09:16 Dose: 40 mg Polyethylene Glycol (Miralax (For Daily Use) -) 17 gm PO DAILY [facility] Last Admin: 06/06/19 10:30 Dose: Not Given - Objective Vital Signs: Vital Signs Temperature 98.1 F 06/07/19 08:28 Pulse Rate 71 06/07/19 08:28 Respiratory Rate 18 06/07/19 08:28 Blood Pressure 134/57 L 06/07/19 08:28 O2 Sat by Pulse Oximetry (%) 95 06/07/19 08:23 Constitutional: Yes: No Distress, Calm Cardiovascular: Yes: Regular Rate and Rhythm, Murmur Respiratory: Yes: CTA Bilaterally Extremities: Yes: WNL Edema: No Labs: CBC, BMP 06/06/19 17:45 06/06/19 17:45 INR, PTT INR 1.03 (0.83-1.09) 05/31/19 13:17 Assessment/Plan IMP: 1. Marked anemia, secondary to GI blood loss 2. Renal insufficiency, acute on chronic in setting of acute blood loss anemia, hypovolemia 3. Borderline elevated TnI: likely due to demand ischemia caused by profound anemia in setting of renal insufficiency 4. DM 5. Chronic HTN, now with hypotensive episodes in setting of #1 6. Fatigue/somnolence, probably multifactorial and due to anemia, CKD and opiate effect 7. Chronic LE edema, suspect component of venous stasis and possible diastolic dysfx REC: 1. Persistent anemia likely due to gastric ulcer, requiring transfusions, further w/u as per PMD/GI. 2. Cont norvasc 3. mildly decompensated diastolic CHF. Lasix held with sCreat 2.7 on 06/06 and 2.9 in evening. Pending sCreat today 06/07. 4. Borderline TnI w/ nl CK, flat trend and non-ischemic ECG likely demand ischemia, not ACS. Hold ASA. Continue statin.
[2019-06-07] MEDS: POLYETHYLENE GLYCOL 3350 119 GM BTL PO SCH (10:58)
[2019-06-07] MEDS: LIDOCAINE PATCH REMOVAL MC SCH (11:01)
[2019-06-07 11:42] LABS: BASO % 0.4 % (0-2.0); HEMATOCRIT 28.4 % (32.4-45.2); HEMOGLOBIN 9.7 GM/dL (10.7-15.3); LYMPH % 12.6 % (8-40); MCH 27.2 pg (25.7-33.7); MCHC 34.1 g/dl (32.0-36.0); MEAN CELL VOLUME 79.7 fl (80-96); MEAN PLT VOLUME 8.1 fl (7.5-11.1); MONO % 8.7 % (3.8-10.2); NEUT % 76.3 % (42.8-82.8); PLATELET COUNT 187 K/MM3 (134-434); RBC 3.57 M/mm3 (3.60-5.2); RDW 21.9 % (11.6-15.6)
[2019-06-07 12:06] LABS: ALBUMIN 2.7 g/dl (3.4-5.0); BILIRUBIN,TOTAL 0.7 mg/dL (0.2-1); BLOOD UREA NITROGEN 41.3 mg/dL (7-18); CALCIUM 8.5 mg/dL (8.5-10.1); CREATININE 2.8 mg/dL (0.55-1.3); POTASSIUM 3.9 mmol/L (3.5-5.1)
[2019-06-07] MEDS ORDERED: ACETAMINOPHEN 325 MG TABLET (FP) PO PRN (12:22)
--- NOTE | 2019-06-07 13:59 | PN ---
Progress Note (short form) - Note Progress Note: PULMONARY States breathing is improving. No chest pain, cough or wheezing. CXR appears improved. Vital Signs Period Temp Pulse Resp BP Sys/Escalante Pulse Ox Last 24 Hr 97.9 F-98.7 F 64-71 18-18 130-149/53-70 95-95 Gen: NAD at rest Heart: RRR Lung: decreased breath sounds at the bases Abd: soft, nontender Ext: + edema CBC, BMP 06/07/19 11:07 06/07/19 11:07 Active Medications Acetaminophen (Tylenol -) 325 mg PO Q6H PRN PRN Reason: PAIN LEVEL 4 - 6 Amlodipine Besylate (Norvasc -) 10 mg PO DAILY [facility] Last Admin: 06/07/19 09:16 Dose: 10 mg Atenolol (Tenormin -) 50 mg PO DAILY [facility] Last Admin: 06/07/19 09:16 Dose: 50 mg Atorvastatin Calcium (Lipitor -) 40 mg PO HS [facility] Last Admin: 06/06/19 21:52 Dose: 40 mg Chlorthalidone (Hygroton -) 25 mg PO DAILY [facility] Last Admin: 06/07/19 09:16 Dose: 25 mg Insulin Aspart (Novolog Vial Sliding Scale -) 1 vial SQ [facility]; Protocol Last Admin: 06/07/19 12:04 Dose: 4 units Insulin Detemir (Levemir Vial) 34 units SQ [facility] Last Admin: 06/06/19 21:53 Dose: Not Given Lidocaine (Lidoderm Patch -) 1 patch TP [facility] Last Admin: 06/06/19 21:53 Dose: 1 patch Lidocaine HCl (Xylocaine 2% Uro-Jet) 20 ml [place] TID PRN PRN Reason: PAIN Miscellaneous (Lidoderm Patch Removal) 1 each MC DAILY [facility] Last Admin: 06/07/19 11:01 Dose: 1 each Pantoprazole Sodium (Protonix -) 40 mg PO BID [facility] Last Admin: 06/07/19 09:16 Dose: 40 mg Polyethylene Glycol (Miralax (For Daily Use) -) 17 gm PO DAILY [facility] Last Admin: 06/07/19 10:58 Dose: Not Given A/P Symptomatic Anemia Gastric Ulcer/Hemorrhoids Acute on Chronic Diastolic Heart Failure +Troponins likely Demand Ischemia Acute on Chronic Renal Failure HTN DM - monitor H/H - protonix - lasix as needed - monitor urine output, creatinine - O2 to keep Spo2 >90% - incentive spirometry - DVT prophylaxis
[2019-06-07 18:33] VITALS: PULSE 68
[2019-06-07] MEDS ORDERED: INSULIN (NOVOLOG) ASPART 100 UNITS/ML 10ML VIAL ONE (21:33)
[2019-06-07] MEDS: LIDOCAINE 5% TOPICAL PATCH TP SCH (22:21)
[2019-06-07] MEDS: ATORVASTATIN CA 40 MG TABLET (FP) PO SCH (22:22)
[2019-06-07] MEDS: INSULIN (LEVEMIR) 100 UNITS/ML UNITS SQ SCH (22:24)
[2019-06-08] MEDS ORDERED: PT OWN MED DRAWER 7, Y5N ONE (05:26)
[2019-06-08] MEDS: INSULIN SLIDING SCALE (NOVOLOG) 1 VIAL SQ SCH ×2 (06:21→12:13)
[2019-06-08 06:28] LABS: HEMATOCRIT 22.8 % (32.4-45.2); HEMOGLOBIN 8.9 GM/dL (10.7-15.3); MCH 32.1 pg (25.7-33.7); MCHC 39.1 g/dl (32.0-36.0); MEAN CELL VOLUME 82.1 fl (80-96); MEAN PLT VOLUME 8.1 fl (7.5-11.1); PLATELET COUNT 173 K/MM3 (134-434); RBC 2.77 M/mm3 (3.60-5.2); RDW 21.5 % (11.6-15.6); WHITE BLOOD COUNT 8.7 K/mm3 (4.0-10.0)
[2019-06-08 06:52] LABS: ALBUMIN 2.4 g/dl (3.4-5.0); BILIRUBIN,TOTAL 0.6 mg/dL (0.2-1); CREATININE 2.8 mg/dL (0.55-1.3); POTASSIUM 3.7 mmol/L (3.5-5.1); TOT PROT 5.3 g/dl (6.4-8.2)
--- NOTE | 2019-06-08 07:10 | PN ---
Progress Note (short form) - Note Progress Note: C/o back pain. Received Iron sucrose. Vital Signs Period Temp Pulse Resp BP Sys/Escalante Pulse Ox Last 24 Hr 98.0 F-98.1 F 68-71 18-20 134-147/57-70 95-95 Lungs clear Heart S1S2 regular Abdomen soft, NT Ext no CCE Laboratory Results - last 24 hr 06/04/19 06/07/19 06/07/19 09:40 11:07 11:07 WBC 10.0 RBC 3.57 L Hgb 9.7 L Hct 28.4 L MCV 79.7 L MCH 27.2 D MCHC 34.1 RDW 21.9 H Plt Count 187 MPV 8.1 Absolute Neuts (auto) 7.6 Neutrophils % 76.3 Lymphocytes % 12.6 D Monocytes % 8.7 Eosinophils % 2.0 Basophils % 0.4 Nucleated RBC % 0 Sodium 141 Potassium 3.9 Chloride 105 Carbon Dioxide 26 Anion Gap 10 BUN 41.3 H Creatinine 2.8 H Est GFR (CKD-EPI)AfAm 17.13 Est GFR (CKD-EPI)NonAf 14.78 POC Glucometer Random Glucose 312 H* Calcium 8.5 Total Bilirubin 0.7 AST 22 ALT 9 L Alkaline Phosphatase 103 Total Protein 6.0 L Albumin 2.7 L Blood Type A POSITIVE Antibody Screen Negative Crossmatch See Detail 06/07/19 06/07/19 06/07/19 11:27 16:55 21:53 WBC RBC Hgb Hct MCV MCH MCHC RDW Plt Count MPV Absolute Neuts (auto) Neutrophils % Lymphocytes % Monocytes % Eosinophils % Basophils % Nucleated RBC % Sodium Potassium Chloride Carbon Dioxide Anion Gap BUN Creatinine Est GFR (CKD-EPI)AfAm Est GFR (CKD-EPI)NonAf POC Glucometer 292 311 252 Random Glucose Calcium Total Bilirubin AST ALT Alkaline Phosphatase Total Protein Albumin Blood Type Antibody Screen Crossmatch 06/08/19 06/08/19 06/08/19 05:10 05:15 05:15 WBC 8.7 RBC 2.77 L Hgb 8.9 L Hct 22.8 L D MCV 82.1 MCH 32.1 D MCHC 39.1 H RDW 21.5 H Plt Count 173 MPV 8.1 Absolute Neuts (auto) Neutrophils % Lymphocytes % Monocytes % Eosinophils % Basophils % Nucleated RBC % Sodium 142 Potassium 3.7 Chloride 107 Carbon Dioxide 25 Anion Gap 9 BUN 40.0 H Creatinine 2.8 H Est GFR (CKD-EPI)AfAm 17.13 Est GFR (CKD-EPI)NonAf 14.78 POC Glucometer 202 Random Glucose 201 H Calcium 8.0 L Total Bilirubin 0.6 AST 18 ALT 8 L Alkaline Phosphatase 92 Total Protein 5.3 L Albumin 2.4 L Blood Type Antibody Screen Crossmatch Current Active Problems Problem Status Onset Anemia Acute Back pain Acute Bleeding internal hemorrhoids Acute Cerebrovascular accident (CVA) Acute Diabetes mellitus Acute Gastric ulcer Acute HTN (hypertension) Acute Hypotension Acute Intestinal metaplasia of gastric cardia Acute Iron deficiency anemia due to chronic blood loss Acute Prophylactic measure Acute Rectal bleed Acute Renal insufficiency Acute Symptomatic anemia Acute Plan D/C home Iron sucrose IV VNS Home PT F/u GI, Onc, Pain management Problem List - Problems (1) Back pain Code(s): M54.9 - DORSALGIA, UNSPECIFIED Qualifiers: Back pain laterality: left Sciatica presence: with sciatica Sciatica laterality: sciatica of left side (2) Renal insufficiency Code(s): N28.9 - DISORDER OF KIDNEY AND URETER, UNSPECIFIED (3) Symptomatic anemia Code(s): D64.9 - ANEMIA, UNSPECIFIED (4) Cerebrovascular accident (CVA) Code(s): I63.9 - CEREBRAL INFARCTION, UNSPECIFIED Qualifiers: Laterality of affected vessel: unspecified (5) HTN (hypertension) Code(s): I10 - ESSENTIAL (PRIMARY) HYPERTENSION Qualifiers: Hypertension type: essential hypertension Qualified Code(s): I10 - Essential (primary) hypertension
--- NOTE | 2019-06-08 07:11 | DS ---
Physical Examination Vital Signs: Vital Signs Temperature 98.0 F 06/07/19 20:24 Pulse Rate 68 06/07/19 20:24 Respiratory Rate 20 06/07/19 20:24 Blood Pressure 138/70 06/07/19 20:24 O2 Sat by Pulse Oximetry (%) 95 06/07/19 20:24 Constitutional: Yes: Anxious, Mild Distress HENT: Yes: Atraumatic, Normocephalic Neck: Yes: Supple, Trachea Midline Cardiovascular: Yes: Regular Rate and Rhythm Respiratory: Yes: Regular, CTA Bilaterally Gastrointestinal: Yes: Normal Bowel Sounds, Soft. No: Abdomen, Obese ...Rectal Exam: Yes: Deferred Renal/: No: Anuria Musculoskeletal: Yes: Back Pain Edema: LLE: Trace, RLE: Trace Integumentary: Yes: WNL ...Motor Strength: WNL Psychiatric: Yes: WNL Labs: CBC, BMP 06/08/19 05:15 06/08/19 05:15 Discharge Summary Reason For Visit: ANEMIA Current Active Problems Anemia (Acute) Back pain (Acute) Bleeding internal hemorrhoids (Acute) Cerebrovascular accident (CVA) (Acute) Diabetes mellitus (Acute) Gastric ulcer (Acute) HTN (hypertension) (Acute) Hypotension (Acute) Intestinal metaplasia of gastric cardia (Acute) Iron deficiency anemia due to chronic blood loss (Acute) Prophylactic measure (Acute) Rectal bleed (Acute) Renal insufficiency (Acute) Symptomatic anemia (Acute) Condition: Improved - Instructions Disposition: VNS/HOME HEALTH CARE - Home Medications Comprehensive Discharge Medication List: Ambulatory Orders Amlodipine Besylate [Norvasc -] 10 mg PO DAILY 10/03/15 Ascorbate Calcium [Vitamin C] 500 mg PO DAILY 10/03/15 Atorvastatin Ca [Lipitor -] 40 mg PO HS 10/03/15 Calcium Carbonate/Vitamin D3 [Calcium 500 + Vit D3 400 Tab] 1 each PO BID Multivitamins [Tab-A-Vit -] 1 tab PO DAILY 10/03/15 Quinapril HCl [Accupril] 40 mg PO DAILY 10/03/15 Aspirin [Ecotrin] 81 mg PO DAILY 10/04/15 Atenolol/Chlorthalidone [Atenolol-Chlorthalidone 50-25] 1 each PO HS 10/04/15 Insulin Aspart [Novolog] 0 unit SQ [facility] 09/18/18 Insulin Degludec [Tresiba Flextouch U-100] 34 unit SQ HS 09/18/18 Acetaminophen [Tylenol -] 500 mg PO Q6H PRN 05/18/19
[2019-06-08] MEDS ORDERED: IRON SUCROSE INJECTION 100 MG in SODIUM CHLORIDE 95 ML IVPB ONE (09:00)
[2019-06-08 10:18] VITALS: BP 136/54; TEMP 98.8
[2019-06-08] MEDS: CHLORTHALIDONE 25 MG TABLET PO SCH (10:22)
[2019-06-08] MEDS: LIDOCAINE PATCH REMOVAL MC SCH (10:23)
[2019-06-08] MEDS: PANTOPRAZOLE 40 MG TABLET (FP) PO SCH (10:25)
[2019-06-08] MEDS: POLYETHYLENE GLYCOL 3350 119 GM BTL PO SCH (10:25)
[2019-06-08] MEDS: ATENOLOL 50 MG TABLET (FP) PO SCH (10:25)
[2019-06-08] MEDS: amLODIPine BESYLATE 10 MG TABLET (FP) PO SCH (10:25)
--- NOTE | 2019-06-08 10:27 | PN ---
Progress Note, Physician Chief Complaint: anemia History of Present Illness: denies cp, sob, palpitations, syncope - Current Medication List Current Medications: Active Medications Acetaminophen (Tylenol -) 325 mg PO Q6H PRN PRN Reason: PAIN LEVEL 4 - 6 Amlodipine Besylate (Norvasc -) 10 mg PO DAILY [facility] Last Admin: 06/07/19 09:16 Dose: 10 mg Atenolol (Tenormin -) 50 mg PO DAILY [facility] Last Admin: 06/07/19 09:16 Dose: 50 mg Atorvastatin Calcium (Lipitor -) 40 mg PO HS [facility] Last Admin: 06/07/19 22:22 Dose: 40 mg Chlorthalidone (Hygroton -) 25 mg PO DAILY [facility] Last Admin: 06/07/19 09:16 Dose: 25 mg Insulin Aspart (Novolog Vial Sliding Scale -) 1 vial SQ [facility]; Protocol Last Admin: 06/08/19 06:21 Dose: 2 units Insulin Detemir (Levemir Vial) 34 units SQ [facility] Last Admin: 06/07/19 22:24 Dose: Not Given Lidocaine (Lidoderm Patch -) 1 patch TP [facility] Last Admin: 06/07/19 22:21 Dose: 1 patch Lidocaine HCl (Xylocaine 2% Uro-Jet) 20 ml [place] TID PRN PRN Reason: PAIN Miscellaneous (Lidoderm Patch Removal) 1 each MC DAILY [facility] Last Admin: 06/07/19 11:01 Dose: 1 each Pantoprazole Sodium (Protonix -) 40 mg PO BID [facility] Last Admin: 06/07/19 22:22 Dose: 40 mg Polyethylene Glycol (Miralax (For Daily Use) -) 17 gm PO DAILY [facility] Last Admin: 06/07/19 10:58 Dose: Not Given - Objective Vital Signs: Vital Signs Temperature 98.8 F 06/08/19 10:00 Pulse Rate 68 06/08/19 10:00 Respiratory Rate 18 06/08/19 10:00 Blood Pressure 136/54 L 06/08/19 10:00 O2 Sat by Pulse Oximetry (%) 95 06/07/19 20:24 Constitutional: Yes: Well Nourished, No Distress, Calm Cardiovascular: Yes: Regular Rate and Rhythm, S1, S2. No: Gallop, Murmur Respiratory: Yes: Regular, CTA Bilaterally. No: Accessory Muscle Use, Rales, Wheezes Extremities: No: Cold Edema: No Neurological: Yes: Alert, Oriented Psychiatric: No: Agitated Labs: CBC, BMP 06/08/19 05:15 06/08/19 05:15 INR, PTT INR 1.03 (0.83-1.09) 05/31/19 13:17 Assessment/Plan tele: NSR IMP: 1. Marked anemia, secondary to GI blood loss 2. Renal insufficiency, acute on chronic in setting of acute blood loss anemia, hypovolemia 3. Borderline elevated TnI: likely due to demand ischemia caused by profound anemia in setting of renal insufficiency 4. DM 5. Chronic HTN, now with hypotensive episodes in setting of #1 6. Fatigue/somnolence, probably multifactorial and due to anemia, CKD and opiate effect 7. Chronic LE edema, suspect component of venous stasis and possible diastolic dysfx REC: 1. Persistent anemia likely due to gastric ulcer, requiring transfusions, further w/u as per PMD/GI. 2. Cont norvasc 3. mildly decompensated diastolic CHF. Lasix held sec to rise in creatinine 4. Borderline TnI w/ nl CK, flat trend and non-ischemic ECG likely demand ischemia, not ACS. Hold ASA. Continue statin. no further cardiac w/u indicated. pt leaving today--to f/u with dr harrell
--- NOTE | 2019-06-08 12:05 | PN ---
Progress Note (short form) - Note Progress Note: Resting in NAD. Breathing overall feels better. No acute events overnight. Intake & Output 06/05/19 06/06/19 06/07/19 06/08/19 23:59 23:59 23:59 23:59 Intake Total 980 670 500 500 Balance 980 670 500 500 Last Vital Signs Temp Pulse Resp BP Pulse Ox 98.8 F 68 18 136/54 L 95 06/08/19 10:00 06/08/19 10:00 06/08/19 10:00 06/08/19 10:00 06/07/19 20:24 Active Medications Acetaminophen (Tylenol -) 325 mg PO Q6H PRN PRN Reason: PAIN LEVEL 4 - 6 Amlodipine Besylate (Norvasc -) 10 mg PO DAILY [facility] Last Admin: 06/08/19 10:25 Dose: 10 mg Atenolol (Tenormin -) 50 mg PO DAILY [facility] Last Admin: 06/08/19 10:25 Dose: 50 mg Atorvastatin Calcium (Lipitor -) 40 mg PO [facility] Last Admin: 06/07/19 22:22 Dose: 40 mg Chlorthalidone (Hygroton -) 25 mg PO DAILY [facility] Last Admin: 06/08/19 10:22 Dose: 25 mg Insulin Aspart (Novolog Vial Sliding Scale -) 1 vial SQ [facility]; Protocol Last Admin: 06/08/19 06:21 Dose: 2 units Insulin Detemir (Levemir Vial) 34 units SQ [facility] Last Admin: 06/07/19 22:24 Dose: Not Given Lidocaine (Lidoderm Patch -) 1 patch TP [facility] Last Admin: 06/07/19 22:21 Dose: 1 patch Lidocaine HCl (Xylocaine 2% Uro-Jet) 20 ml [place] TID PRN PRN Reason: PAIN Miscellaneous (Lidoderm Patch Removal) 1 each MC DAILY [facility] Last Admin: 06/08/19 10:23 Dose: 1 each Pantoprazole Sodium (Protonix -) 40 mg PO BID [facility] Last Admin: 06/08/19 10:25 Dose: 40 mg Polyethylene Glycol (Miralax (For Daily Use) -) 17 gm PO DAILY [facility] Last Admin: 06/08/19 10:25 Dose: 17 grams Constitutional: Yes: NAD Eyes: Yes: Conjunctiva Clear, EOM Intact HENT: Yes: Atraumatic, Normocephalic Neck: Yes: Supple, Trachea Midline Cardiovascular: Yes: Regular Rate and Rhythm Respiratory: Yes: Bibasilar rales / rhonchi ...Clubbing: No Gastrointestinal: Yes: Normal Bowel Sounds, Soft. No: Tenderness Edema: Yes Neurological: Yes: Alert, Oriented Labs: Laboratory Results - last 24 hr 06/04/19 06/07/19 06/07/19 09:40 11:07 16:55 WBC RBC Hgb Hct MCV MCH MCHC RDW Plt Count MPV Sodium 141 Potassium 3.9 Chloride 105 Carbon Dioxide 26 Anion Gap 10 BUN 41.3 H Creatinine 2.8 H Est GFR (CKD-EPI)AfAm 17.13 Est GFR (CKD-EPI)NonAf 14.78 POC Glucometer 311 Random Glucose 312 H* Calcium 8.5 Total Bilirubin 0.7 AST 22 ALT 9 L Alkaline Phosphatase 103 Total Protein 6.0 L Albumin 2.7 L Blood Type A POSITIVE Antibody Screen Negative Crossmatch See Detail 06/07/19 06/08/19 06/08/19 21:53 05:10 05:15 WBC 8.7 RBC 2.77 L Hgb 8.9 L Hct 22.8 L D MCV 82.1 MCH 32.1 D MCHC 39.1 H RDW 21.5 H Plt Count 173 MPV 8.1 Sodium Potassium Chloride Carbon Dioxide Anion Gap BUN Creatinine Est GFR (CKD-EPI)AfAm Est GFR (CKD-EPI)NonAf POC Glucometer 252 202 Random Glucose Calcium Total Bilirubin AST ALT Alkaline Phosphatase Total Protein Albumin Blood Type Antibody Screen Crossmatch 06/08/19 05:15 WBC RBC Hgb Hct MCV MCH MCHC RDW Plt Count MPV Sodium 142 Potassium 3.7 Chloride 107 Carbon Dioxide 25 Anion Gap 9 BUN 40.0 H Creatinine 2.8 H Est GFR (CKD-EPI)AfAm 17.13 Est GFR (CKD-EPI)NonAf 14.78 POC Glucometer Random Glucose 201 H Calcium 8.0 L Total Bilirubin 0.6 AST 18 ALT 8 L Alkaline Phosphatase 92 Total Protein 5.3 L Albumin 2.4 L Blood Type Antibody Screen Crossmatch Assessment/Plan Symptomatic Anemia Gastric Ulcer/Hemorrhoids Acute on Chronic Diastolic Heart Failure +Troponins likely Demand Ischemia Acute on Chronic Renal Failure Bilateral Pleural effusions HTN DM - PRN Lasix - Monitor H/H - Normal transfusion thresholds - PPI - O2 to keep Spo2 >90% - Incentive spirometry - DVT prophylaxis - D/C planning Dr Rowley
[2019-06-08] MEDS ORDERED: INSULIN (NOVOLOG) ASPART 100 UNITS/ML 10ML VIAL ONE (12:17)
== END 2019-06-08 14:11 | disposition home health service (06) | DRG 347 ==
LOC: JER 12:37 → JERBED 15:07 → J4W 20:15
PROVIDERS: ADMIT Internal Medicine; ATTEND Nurse Practitioner Acute Care
PROC: 30233N1 Transfusion of Nonautologous Red Blood Cells into Peripheral Vein, Percutaneous Approach (ICD-10-PCS; 2019-05-31)
PROC: 0DJD8ZZ Inspection of Lower Intestinal Tract, Via Natural or Artificial Opening Endoscopic (ICD-10-PCS; 2019-06-03)
PROC: 0DB68ZX Excision of Stomach, Via Natural or Artificial Opening Endoscopic, Diagnostic (ICD-10-PCS; 2019-06-03)
PROC: 0DB98ZX Excision of Duodenum, Via Natural or Artificial Opening Endoscopic, Diagnostic (ICD-10-PCS; 2019-06-03)
PROC: 06LY4CC Occlusion of Hemorrhoidal Plexus with Extraluminal Device, Percutaneous Endoscopic Approach (ICD-10-PCS; principal; 2019-06-03 11:00)
DX: K25.0 Acute gastric ulcer with hemorrhage (principal); I50.33 Acute on chronic diastolic (congestive) heart failure; K86.1 Other chronic pancreatitis; I24.8 Other forms of acute ischemic heart disease; D62 Acute posthemorrhagic anemia; I13.0 Hypertensive heart and chronic kidney disease with heart failure and stage 1 through stage 4 chronic kidney disease, or unspecified chronic kidney disease; N17.9 Acute kidney failure, unspecified; K62.5 Hemorrhage of anus and rectum; E11.649 Type 2 diabetes mellitus with hypoglycemia without coma; I95.9 Hypotension, unspecified; N18.9 Chronic kidney disease, unspecified; K57.90 Diverticulosis of intestine, part unspecified, without perforation or abscess without bleeding; K64.8 Other hemorrhoids; K29.50 Unspecified chronic gastritis without bleeding; K29.80 Duodenitis without bleeding; E66.9 Obesity, unspecified; Z68.29 Body mass index [BMI] 29.0-29.9, adult; E11.9 Type 2 diabetes mellitus without complications; E78.5 Hyperlipidemia, unspecified; H35.30 Unspecified macular degeneration
CPT/HCPCS: 36415; 36430; 36511; 70450-TC; 71045-TC-FY; 80048; 80053; 80061; 80307; 81003; 82272; 82378; 82550; 82570; 82607; 82728; 82746; 82962; 83010; 83036; 83540; 83550; 83605; 83721; 83735; 83880; 84156; 84443; 84484; 85025; 85027; 85044; 85610; 85730; 86850; 86900; 86901; 86922; 87040; 88305-TC; 93005; 93010; 93306-TC; 93970-TC; 97116-GP; 97162-GP; 99284-25; J0131; J1756; P9038; P9058

== ENCOUNTER 2019-12-22 07:16 | Day surgery (SDC) | payer OTHER ==
[2019-12-18 17:23] VITALS: BMI 28.0
[2019-12-22 08:06] VITALS: TEMP 97.7
[2019-12-22 09:29] VITALS: BP 133/60; PULSE 58
--- NOTE | 2019-12-23 18:00 | PATH ---
Surgical Pathology Report Patient Name: FLAVIA GOMEZ [facility]. Rec. #: [id number] /Age/Gender: 1935 (Age: 84) / F Account: [id number] Location: [facility]-ENDOSCOPY Taken: 12/22/2019 Received: 12/22/2019 Reported: 12/23/2019 Physicians: Miguel Meraz M.D. Specimen(s) Received GASTRIC ULCER SCAR Clinical History Gastric ulcer Postoperative diagnosis: Hiatal hernia, healed gastric ulcer Final Diagnosis Gastric ulcers, scar, biopsy: Gastric mucosa with SEVERE chronic active gastritis. Immunohistochemical stain for H. Pylori is POSITIVE (MANY). Positive and negative controls (internal if applicable) show appropriate results. Electronically Signed Haylee Fuentes M.D. Gross Description Received in formalin, labeled "biopsy gastric ulcers scar" are 6 mckeon, irregular portions of soft tissue ranging from 0.2-0.3 cm. in greatest dimension. The specimens are submitted in toto in one cassette. /12/22/2019 [facility]/12/22/2019
== END 2019-12-22 09:41 | disposition home or self-care (01) ==
LOC: JASU-ENDO 07:16
PROVIDERS: ATTEND Internal Medicine Gastroenterology
PROC: 0DB68ZX Excision of Stomach, Via Natural or Artificial Opening Endoscopic, Diagnostic (ICD-10-PCS; principal; 2019-12-22 08:45)
DX: Z87.11 Personal history of peptic ulcer disease (principal); K29.50 Unspecified chronic gastritis without bleeding; K44.9 Diaphragmatic hernia without obstruction or gangrene; B96.81 Helicobacter pylori [H. pylori] as the cause of diseases classified elsewhere; I10 Essential (primary) hypertension; E11.9 Type 2 diabetes mellitus without complications
CPT/HCPCS: 88305-TC; 88342-TC

== ENCOUNTER 2020-11-02 11:32 | Inpatient (IN) | payer OTHER ==
[2020-11-02 12:32] LABS: HEMOGLOBIN 7.8 GM/dl (10.7-15.3)
[2020-11-02 12:33] LABS: INR 1.08 (0.82-1.09)
[2020-11-02 12:40] LABS: BASO % 0.4 % (0-2.0); EOS % 0.5 % (0-4.5); HEMATOCRIT 23.6 % (32.4-45.2); LYMPH % 8.8 % (8-40); MCH 24.9 pg (25.7-33.7); MCHC 33.2 g/dl (32.0-36.0); MEAN CELL VOLUME 74.9 fl (80-96); MEAN PLT VOLUME 9.6 fl (7.5-11.1); MONO % 5.9 % (3.8-10.2); NEUT % 84.4 % (42.8-82.8); PLATELET COUNT 114 K/MM3 (134-434); RBC 3.15 M/mm3 (3.60-5.2); RDW 14.5 % (11.6-15.6); WHITE BLOOD COUNT 9.2 K/mm3 (4.0-10.8)
[2020-11-02 12:43] LABS: ADD RBC MORPHOLOGY YES
[2020-11-02 12:56] LABS: ALBUMIN 3.9 g/dl (3.4-5.0); BILIRUBIN,TOTAL 0.6 mg/dl (0.2-1); CALCIUM 9.1 mg/dl (8.5-10); CREATININE 4.2 mg/dl (0.55-1.3); TOT PROT 6.8 g/dl (6.4-8.2)
[2020-11-02 14:09] LABS: EPITHELIAL CELLS FEW /hpf
[2020-11-02 14:12] LABS: TARGET CELLS 1+
[2020-11-02] MEDS ORDERED: ACETAMINOPHEN 500 MG TABLET (FP) PO PRN ×2 (16:16→20:29)
[2020-11-02] MEDS ORDERED: INSULIN SLIDING SCALE (NOVOLOG) 1 VIAL SQ SCH (16:30)
[2020-11-02 17:00] VITALS: BMI 29.2
[2020-11-02] MEDS ORDERED: PIPERACILLIN/TAZOBACTAM 2.25 GM VIAL IVPB ONE (17:34)
[2020-11-02] MEDS ORDERED: DEXTROSE 5%-WATER - 50 ML IVPB ONE (17:34)
[2020-11-02] MEDS ORDERED: PIPERACILLIN/TAZOB 2.25 GM 2.25 GM in DEXTROSE 5%-WATER - 50 ML IVPB SCH (18:00)
[2020-11-02] MEDS ORDERED: SODIUM CHLORIDE 1,000 ML IV SCH (21:30)
[2020-11-02] MEDS: HEPARIN NA (PORCINE) 5,000 UNITS/ML 1ML VIAL SQ SCH (21:56)
[2020-11-02] MEDS: PANTOPRAZOLE SODIUM 40 MG VIAL IVPUSH SCH (21:56)
[2020-11-02] MEDS: INSULIN SLIDING SCALE (NOVOLOG) 1 VIAL SQ SCH (21:57)
[2020-11-02] MEDS: ATORVASTATIN CA 40 MG TABLET (FP) PO SCH (21:57)
[2020-11-02] MEDS: INSULIN (LEVEMIR) 100 UNITS/ML UNITS SQ SCH (21:57)
[2020-11-02] MEDS: CHLORHEXIDINE GLUCONATE 4% CLEANSER FOR DECOLONIZATION TP SCH (21:58)
[2020-11-02] MEDS: MUPIROCIN 2% TOPICAL OINTMENT FOR DECOLONIZATION NS SCH (21:58)
[2020-11-02] MEDS ORDERED: CHLORHEXIDINE GLUCONATE 4% CLEANSER FOR DECOLONIZATION TP SCH (22:00)
[2020-11-02] MEDS ORDERED: LIPASE PO SCH (22:00)
[2020-11-02] MEDS ORDERED: FERROUS SO4 325 MG TABLET (FP) PO SCH (22:00)
[2020-11-02] MEDS ORDERED: HEPARIN NA (PORCINE) 5,000 UNITS/ML 1ML VIAL SQ SCH (22:00)
[2020-11-02] MEDS ORDERED: ATORVASTATIN CA 40 MG TABLET (FP) PO SCH (22:00)
[2020-11-02] MEDS ORDERED: MUPIROCIN 2% TOPICAL OINTMENT FOR DECOLONIZATION NS SCH (22:00)
[2020-11-02] MEDS ORDERED: AMYLASE PO SCH (22:00)
[2020-11-02] MEDS ORDERED: PROTEASE PO SCH (22:00)
[2020-11-02] MEDS ORDERED: [UNRECOGNIZED DRUG - OTHER] PO SCH (22:00)
[2020-11-02] MEDS ORDERED: INSULIN (LEVEMIR) 100 UNITS/ML UNITS SQ SCH (22:00)
[2020-11-03] MEDS ORDERED: DEXTROSE 5%-WATER - 50 ML IVPB ONE ×4 (00:25→17:07)
[2020-11-03] MEDS ORDERED: PIPERACILLIN/TAZOBACTAM 2.25 GM VIAL IVPB ONE ×4 (00:25→17:07)
[2020-11-03] MEDS: PIPERACILLIN/TAZOB 2.25 GM 2.25 GM in DEXTROSE 5%-WATER - 50 ML IVPB SCH ×3 (02:10→17:08)
[2020-11-03] MEDS: HEPARIN NA (PORCINE) 5,000 UNITS/ML 1ML VIAL SQ SCH ×3 (06:18→21:06)
[2020-11-03] MEDS: INSULIN SLIDING SCALE (NOVOLOG) 1 VIAL SQ SCH ×4 (06:21→21:07)
[2020-11-03] MEDS ORDERED: LEVOTHYROXINE NA 25 MCG TABLET (FP) PO SCH ×2 (07:00)
[2020-11-03 07:23] LABS: BASO % 0.2 % (0-2.0); EOS % 0.8 % (0-4.5); HEMATOCRIT 20.5 % (32.4-45.2); LYMPH % 9.3 % (8-40); MCH 23.5 pg (25.7-33.7); MCHC 33.2 g/dl (32.0-36.0); MEAN CELL VOLUME 70.8 fl (80-96); MONO % 6.6 % (3.8-10.2); NEUT % 83.1 % (42.8-82.8); PLATELET COUNT 131 K/MM3 (134-434); WHITE BLOOD COUNT 8.8 K/mm3 (4.0-10.0)
[2020-11-03 07:24] LABS: HEMOGLOBIN 6.8 GM/dL (10.7-15.3)
[2020-11-03 07:35] LABS: ALBUMIN 3.3 g/dl (3.4-5.0); CREATININE 4.7 mg/dL (0.55-1.3); PHOSPHOROUS 6.4 mg/dL (2.5-4.9)
[2020-11-03 07:37] LABS: BILIRUBIN,TOTAL 0.3 mg/dL (0.2-1); CALCIUM 8.5 mg/dL (8.5-10.1); TOT PROT 6.5 g/dl (6.4-8.2)
[2020-11-03 07:39] LABS: MAGNESIUM 2.4 mg/dL (1.8-2.4)
[2020-11-03] MEDS ORDERED: DEXTROSE 50%-WATER - 25 GM/50 ML VIAL IVPUSH ONE ×2 (08:45→21:02)
[2020-11-03] MEDS ORDERED: DEXTROSE 50%-WATER 25 GM/50 ML DISP.SYRIN ONE ×2 (09:25→21:03)
[2020-11-03] MEDS ORDERED: SODIUM CHLORIDE 1,000 ML IV SCH (09:45)
[2020-11-03] MEDS: MUPIROCIN 2% TOPICAL OINTMENT FOR DECOLONIZATION NS SCH ×2 (10:38→21:06)
[2020-11-03] MEDS: PANTOPRAZOLE SODIUM 40 MG VIAL IVPUSH SCH ×2 (10:38→21:07)
[2020-11-03] MEDS ORDERED: LACTATED RINGERS SOLUTION 1,000 ML/1,000 ML INFUS.BAG IV SCH (11:30)
[2020-11-03] MEDS ORDERED: FERROUS SO4 325 MG TABLET (FP) PO SCH (12:00)
[2020-11-03] MEDS ORDERED: LIPASE/PROTEASE/AMYLASE 6,000 UNIT CAPSULE PO SCH (17:30)
[2020-11-03] MEDS: POLYETHYLENE GLYCOL 3350 119 GM BTL PO SCH (18:12)
[2020-11-03] MEDS: SODIUM BICARBONATE 650 MG TABLET PO SCH ×2 (18:12→21:06)
[2020-11-03] MEDS ORDERED: DEXTROSE 50%-WATER - 25 GM/50 ML VIAL IVPUSH PRN (21:02)
[2020-11-03] MEDS: INSULIN (LEVEMIR) 100 UNITS/ML UNITS SQ SCH (21:06)
[2020-11-03] MEDS: CHLORHEXIDINE GLUCONATE 4% CLEANSER FOR DECOLONIZATION TP SCH (21:06)
[2020-11-03] MEDS: ATORVASTATIN CA 40 MG TABLET (FP) PO SCH (21:06)
[2020-11-03 21:31] LABS: HEMATOCRIT 25.3 % (32.4-45.2); MCH 22.3 pg (25.7-33.7); MCHC 31.4 g/dl (32.0-36.0); MEAN CELL VOLUME 71.1 fl (80-96); MEAN PLT VOLUME 9.6 fl (7.5-11.1); PLATELET COUNT 113 K/MM3 (134-434); RBC 3.56 M/mm3 (3.60-5.2); WHITE BLOOD COUNT 14.2 K/mm3 (4.0-10.0)
[2020-11-04] MEDS ORDERED: LACTATED RINGERS SOLUTION 1,000 ML/1,000 ML INFUS.BAG IV SCH (00:26)
[2020-11-04] MEDS ORDERED: ACETAMINOPHEN 500 MG TABLET (FP) PO PRN (00:26)
[2020-11-04] MEDS: PIPERACILLIN/TAZOB 2.25 GM 2.25 GM in DEXTROSE 5%-WATER - 50 ML IVPB SCH ×3 (03:00→17:02)
[2020-11-04] MEDS ORDERED: PIPERACILLIN/TAZOBACTAM 2.25 GM VIAL IVPB ONE ×3 (06:55→16:25)
[2020-11-04] MEDS ORDERED: DEXTROSE 5%-WATER - 50 ML IVPB ONE ×3 (06:55→16:25)
[2020-11-04] MEDS: HEPARIN NA (PORCINE) 5,000 UNITS/ML 1ML VIAL SQ SCH ×3 (07:02→22:22)
[2020-11-04] MEDS: LEVOTHYROXINE NA 25 MCG TABLET (FP) PO SCH (07:02)
[2020-11-04] MEDS: INSULIN SLIDING SCALE (NOVOLOG) 1 VIAL SQ SCH ×4 (07:39→22:23)
[2020-11-04 08:35] LABS: HEMATOCRIT 24.2 % (32.4-45.2); HEMOGLOBIN 8.5 GM/dL (10.7-15.3); MCH 25.6 pg (25.7-33.7); MCHC 35.1 g/dl (32.0-36.0); MEAN CELL VOLUME 72.9 fl (80-96); MEAN PLT VOLUME 9.3 fl (7.5-11.1); PLATELET COUNT 125 K/MM3 (134-434); RBC 3.31 M/mm3 (3.60-5.2); RDW 15.8 % (11.6-15.6); WHITE BLOOD COUNT 15.8 K/mm3 (4.0-10.0)
[2020-11-04 09:02] LABS: BLOOD UREA NITROGEN 101.7 mg/dL (7-18); CALCIUM 8.3 mg/dL (8.5-10.1)
[2020-11-04 09:03] LABS: MAGNESIUM 2.4 mg/dL (1.8-2.4)
[2020-11-04 09:05] LABS: CREATININE 4.5 mg/dL (0.55-1.3); PHOSPHOROUS 6.5 mg/dL (2.5-4.9)
[2020-11-04 09:06] LABS: BILIRUBIN,TOTAL 0.7 mg/dL (0.2-1)
[2020-11-04 09:07] LABS: TOT PROT 6.5 g/dl (6.4-8.2)
[2020-11-04] MEDS: SODIUM BICARBONATE 650 MG TABLET PO SCH ×2 (09:47→22:22)
[2020-11-04] MEDS: PANTOPRAZOLE SODIUM 40 MG VIAL IVPUSH SCH (09:47)
[2020-11-04] MEDS: POLYETHYLENE GLYCOL 3350 119 GM BTL PO SCH ×2 (09:47→09:52)
[2020-11-04] MEDS ORDERED: MUPIROCIN 2% TOPICAL OINTMENT FOR DECOLONIZATION NS SCH (10:00)
[2020-11-04] MEDS ORDERED: INSULIN (NOVOLOG) ASPART 100 UNITS/ML 10ML VIAL ONE (11:43)
[2020-11-04] MEDS: LACTATED RINGERS SOLUTION 1,000 ML/1,000 ML INFUS.BAG IV SCH (13:33)
[2020-11-04 19:55] LABS: EPI CELLS 14 /uL (0-25.1); HYALINE CASTS 1 /uL (0-3.1); URINE APPEARANCE CLOUDY; URINE BACTERIA 42 /uL (0-1359); URINE BILIRUBIN NEGATIVE (NEGATIVE); URINE COLOR YELLOW; URINE GLUCOSE (UA) NEGATIVE (NEGATIVE); URINE KETONE NEGATIVE (NEGATIVE); URINE LEUK ESTERASE TRACE (NEGATIVE); URINE NITRITE NEGATIVE (NEGATIVE); URINE PROTEIN TRACE (NEGATIVE); URINE UROBILINOGEN 0.2 mg/dL (0.2-1.0); URINE WBC 41 /uL (0-25.8)
[2020-11-04] MEDS ORDERED: CHLORHEXIDINE GLUCONATE 4% CLEANSER FOR DECOLONIZATION TP SCH (22:00)
[2020-11-04] MEDS: ATORVASTATIN CA 40 MG TABLET (FP) PO SCH (22:22)
[2020-11-04] MEDS: INSULIN (LEVEMIR) 100 UNITS/ML UNITS SQ SCH (22:23)
[2020-11-05] MEDS ORDERED: DEXTROSE 50%-WATER 25 GM/50 ML DISP.SYRIN ONE (06:06)
[2020-11-05] MEDS ORDERED: DEXTROSE 50%-WATER - 25 GM/50 ML VIAL IVPUSH ONE (06:15)
[2020-11-05] MEDS: LEVOTHYROXINE NA 25 MCG TABLET (FP) PO SCH (06:27)
[2020-11-05] MEDS: INSULIN SLIDING SCALE (NOVOLOG) 1 VIAL SQ SCH ×4 (06:28→21:48)
[2020-11-05] MEDS: HEPARIN NA (PORCINE) 5,000 UNITS/ML 1ML VIAL SQ SCH ×3 (06:28→21:47)
[2020-11-05] MEDS: POLYETHYLENE GLYCOL 3350 119 GM BTL PO SCH (09:16)
[2020-11-05] MEDS: PANTOPRAZOLE 20 MG TABLET PO SCH (09:17)
[2020-11-05] MEDS: SODIUM BICARBONATE 650 MG TABLET PO SCH ×2 (09:17→21:48)
[2020-11-05 13:23] LABS: CALCIUM 8.7 mg/dL (8.5-10.1)
[2020-11-05 13:24] LABS: BLOOD UREA NITROGEN 94.3 mg/dL (7-18)
[2020-11-05 13:27] LABS: CREATININE 4.2 mg/dL (0.55-1.3)
[2020-11-05] MEDS: LACTATED RINGERS SOLUTION 1,000 ML/1,000 ML INFUS.BAG IV SCH (13:43)
[2020-11-05] MEDS ORDERED: PT OWN MED DRAWER 7, Y5N ONE ×2 (17:06→17:50)
[2020-11-05] MEDS: LIPASE/PROTEASE/AMYLASE 6,000 UNIT CAPSULE PO SCH (17:38)
[2020-11-05] MEDS: INSULIN (LEVEMIR) 100 UNITS/ML UNITS SQ SCH (21:47)
[2020-11-05] MEDS: ATORVASTATIN CA 40 MG TABLET (FP) PO SCH (21:48)
[2020-11-06] MEDS: HEPARIN NA (PORCINE) 5,000 UNITS/ML 1ML VIAL SQ SCH ×3 (06:23→21:57)
[2020-11-06] MEDS: INSULIN SLIDING SCALE (NOVOLOG) 1 VIAL SQ SCH ×5 (06:23→21:57)
[2020-11-06] MEDS: LEVOTHYROXINE NA 25 MCG TABLET (FP) PO SCH (06:23)
[2020-11-06 07:53] LABS: HEMATOCRIT 21.6 % (32.4-45.2); HEMOGLOBIN 7.6 GM/dL (10.7-15.3); MCH 26.2 pg (25.7-33.7); MCHC 35.3 g/dl (32.0-36.0); MEAN CELL VOLUME 74.3 fl (80-96); MEAN PLT VOLUME 9.8 fl (7.5-11.1); PLATELET COUNT 143 K/MM3 (134-434); RBC 2.91 M/mm3 (3.60-5.2); RDW 15.4 % (11.6-15.6); WHITE BLOOD COUNT 7.6 K/mm3 (4.0-10.0)
[2020-11-06 08:29] LABS: CALCIUM 8.2 mg/dL (8.5-10.1)
[2020-11-06 08:30] LABS: ALBUMIN 2.8 g/dl (3.4-5.0); BLOOD UREA NITROGEN 83.4 mg/dL (7-18); MAGNESIUM 2.2 mg/dL (1.8-2.4)
[2020-11-06 08:32] LABS: CREATININE 3.9 mg/dL (0.55-1.3); PHOSPHOROUS 5.9 mg/dL (2.5-4.9)
[2020-11-06 08:34] LABS: BILIRUBIN,TOTAL 0.5 mg/dL (0.2-1)
[2020-11-06] MEDS ORDERED: PT OWN MED DRAWER 7, Y5N ONE ×2 (09:05→11:22)
[2020-11-06] MEDS: SODIUM BICARBONATE 650 MG TABLET PO SCH ×2 (09:32→21:58)
[2020-11-06] MEDS: LIPASE/PROTEASE/AMYLASE 6,000 UNIT CAPSULE PO SCH ×2 (09:32→11:23)
[2020-11-06] MEDS: PANTOPRAZOLE 20 MG TABLET PO SCH (09:32)
[2020-11-06] MEDS: POLYETHYLENE GLYCOL 3350 119 GM BTL PO SCH (09:33)
[2020-11-06] MEDS: LACTATED RINGERS SOLUTION 1,000 ML/1,000 ML INFUS.BAG IV SCH (13:11)
[2020-11-06] MEDS: INSULIN (LEVEMIR) 100 UNITS/ML UNITS SQ SCH (21:57)
[2020-11-06] MEDS: ATORVASTATIN CA 40 MG TABLET (FP) PO SCH (21:58)
[2020-11-07] MEDS: INSULIN SLIDING SCALE (NOVOLOG) 1 VIAL SQ SCH ×4 (06:05→22:27)
[2020-11-07] MEDS: HEPARIN NA (PORCINE) 5,000 UNITS/ML 1ML VIAL SQ SCH ×3 (06:05→22:27)
[2020-11-07] MEDS: LEVOTHYROXINE NA 25 MCG TABLET (FP) PO SCH (06:05)
[2020-11-07 06:40] LABS: BASO % 0.8 % (0-2.0); EOS % 3.4 % (0-4.5); HEMATOCRIT 21.4 % (32.4-45.2); HEMOGLOBIN 7.7 GM/dL (10.7-15.3); LYMPH % 20.8 % (8-40); MCH 27.4 pg (25.7-33.7); MCHC 36.1 g/dl (32.0-36.0); MEAN CELL VOLUME 75.8 fl (80-96); MEAN PLT VOLUME 9.3 fl (7.5-11.1); MONO % 8.8 % (3.8-10.2); NEUT % 66.2 % (42.8-82.8); PLATELET COUNT 141 K/MM3 (134-434); RBC 2.82 M/mm3 (3.60-5.2); RDW 15.6 % (11.6-15.6); WHITE BLOOD COUNT 6.6 K/mm3 (4.0-10.0)
[2020-11-07 06:59] LABS: CALCIUM 8.4 mg/dL (8.5-10.1)
[2020-11-07 07:00] LABS: BLOOD UREA NITROGEN 77.1 mg/dL (7-18); MAGNESIUM 2.3 mg/dL (1.8-2.4)
[2020-11-07 07:03] LABS: PHOSPHOROUS 5.5 mg/dL (2.5-4.9)
[2020-11-07] MEDS ORDERED: SODIUM ZIRCONIUM CYCLOSILICATE (LOKELMA) 5 GM PACKET PO ONE (07:03)
[2020-11-07] MEDS: POLYETHYLENE GLYCOL 3350 119 GM BTL PO SCH (10:02)
[2020-11-07] MEDS: SODIUM BICARBONATE 650 MG TABLET PO SCH (10:03)
[2020-11-07] MEDS: PANTOPRAZOLE 20 MG TABLET PO SCH (10:03)
[2020-11-07] MEDS: LACTATED RINGERS SOLUTION 1,000 ML/1,000 ML INFUS.BAG IV SCH (13:39)
[2020-11-07 16:08] LABS: KAPPA/LAMBDA RATIO, UR 5.24 (1.03-31.76)
[2020-11-07] MEDS ORDERED: INSULIN (LEVEMIR) 100 UNITS/ML UNITS SQ ONE (22:04)
[2020-11-07] MEDS: ATORVASTATIN CA 40 MG TABLET (FP) PO SCH (22:27)
[2020-11-07] MEDS: INSULIN (LEVEMIR) 100 UNITS/ML UNITS SQ SCH (22:27)
[2020-11-07] MEDS: SODIUM BICARBONATE 325 MG TABLET PO SCH (22:27)
[2020-11-08] MEDS: HEPARIN NA (PORCINE) 5,000 UNITS/ML 1ML VIAL SQ SCH (06:18)
[2020-11-08] MEDS: LEVOTHYROXINE NA 25 MCG TABLET (FP) PO SCH (06:18)
[2020-11-08] MEDS: INSULIN SLIDING SCALE (NOVOLOG) 1 VIAL SQ SCH ×4 (06:18→21:37)
[2020-11-08 07:51] LABS: CALCIUM 8.3 mg/dL (8.5-10.1)
[2020-11-08 07:52] LABS: ALBUMIN 2.9 g/dl (3.4-5.0); BLOOD UREA NITROGEN 72.3 mg/dL (7-18)
[2020-11-08 07:55] LABS: CREATININE 3.9 mg/dL (0.55-1.3)
[2020-11-08 07:57] LABS: BILIRUBIN,TOTAL 0.6 mg/dL (0.2-1); TOT PROT 5.8 g/dl (6.4-8.2)
[2020-11-08] MEDS ORDERED: PT OWN MED DRAWER 7, Y5N ONE (09:00)
[2020-11-08] MEDS: POLYETHYLENE GLYCOL 3350 119 GM BTL PO SCH (09:28)
[2020-11-08] MEDS: PANTOPRAZOLE 20 MG TABLET PO SCH (09:29)
[2020-11-08] MEDS: SODIUM BICARBONATE 325 MG TABLET PO SCH (09:29)
[2020-11-08] MEDS: LACTATED RINGERS SOLUTION 1,000 ML/1,000 ML INFUS.BAG IV SCH (14:49)
[2020-11-08] MEDS ORDERED: EPOETIN ALFA 10,000 UNIT/1 ML VIAL SQ ONE (15:12)
[2020-11-08] MEDS: amLODIPine BESYLATE 10 MG TABLET (FP) PO SCH (15:49)
[2020-11-08] MEDS: ATORVASTATIN CA 40 MG TABLET (FP) PO SCH (21:34)
[2020-11-08] MEDS: INSULIN (LEVEMIR) 100 UNITS/ML UNITS SQ SCH (21:37)
[2020-11-09] MEDS: INSULIN SLIDING SCALE (NOVOLOG) 1 VIAL SQ SCH ×4 (06:40→21:19)
[2020-11-09] MEDS: LEVOTHYROXINE NA 25 MCG TABLET (FP) PO SCH (06:40)
[2020-11-09 08:06] LABS: INR 0.98 (0.83-1.09); PROTHROMBIN TIME (PATIENT) 11.9 SEC (9.7-13.0)
[2020-11-09 08:08] LABS: ACTIVATED PTT 28.6 SECONDS (25.2-36.5)
[2020-11-09 08:09] LABS: HEMATOCRIT 20.8 % (32.4-45.2); MCH 25.1 pg (25.7-33.7); MCHC 33.6 g/dl (32.0-36.0); MEAN CELL VOLUME 74.9 fl (80-96); MEAN PLT VOLUME 9.8 fl (7.5-11.1); PLATELET COUNT 142 K/MM3 (134-434); RBC 2.78 M/mm3 (3.60-5.2); RDW 15.4 % (11.6-15.6); WHITE BLOOD COUNT 7.5 K/mm3 (4.0-10.0)
[2020-11-09 08:16] LABS: CALCIUM 8.5 mg/dL (8.5-10.1)
[2020-11-09 08:17] LABS: ALBUMIN 2.8 g/dl (3.4-5.0); BLOOD UREA NITROGEN 70.6 mg/dL (7-18)
[2020-11-09 08:20] LABS: CREATININE 4.2 mg/dL (0.55-1.3)
[2020-11-09 08:22] LABS: BILIRUBIN,TOTAL 0.4 mg/dL (0.2-1); TOT PROT 5.8 g/dl (6.4-8.2)
[2020-11-09] MEDS: PANTOPRAZOLE 20 MG TABLET PO SCH (09:01)
[2020-11-09] MEDS: amLODIPine BESYLATE 10 MG TABLET (FP) PO SCH (09:01)
[2020-11-09] MEDS: metoPROLOL SUCCINATE 25 MG TAB.SR.24H (FP) PO SCH (09:01)
[2020-11-09] MEDS ORDERED: INSULIN (NOVOLOG) ASPART 100 UNITS/ML 10ML VIAL ONE (12:05)
[2020-11-09] MEDS: POLYETHYLENE GLYCOL 3350 119 GM BTL PO SCH (12:06)
[2020-11-09] MEDS ORDERED: PT OWN MED DRAWER 7, Y5N ONE (20:07)
[2020-11-09] MEDS: AMOXICILLIN 500 MG CAPSULE (FP) PO SCH (21:16)
[2020-11-09] MEDS: CLARITHROMYCIN 500 MG TABLET (UD) PO SCH (21:16)
[2020-11-09] MEDS: ATORVASTATIN CA 40 MG TABLET (FP) PO SCH (21:16)
[2020-11-09] MEDS: PANTOPRAZOLE 40 MG TABLET PO SCH (21:17)
[2020-11-09] MEDS: INSULIN (LEVEMIR) 100 UNITS/ML UNITS SQ SCH (21:19)
[2020-11-10] MEDS: LACTATED RINGERS SOLUTION 1,000 ML/1,000 ML INFUS.BAG IV SCH (03:20)
[2020-11-10] MEDS: LEVOTHYROXINE NA 25 MCG TABLET (FP) PO SCH (06:57)
[2020-11-10] MEDS: HEPARIN NA (PORCINE) 5,000 UNITS/ML 1ML VIAL SQ SCH ×2 (07:17→15:14)
[2020-11-10] MEDS: INSULIN SLIDING SCALE (NOVOLOG) 1 VIAL SQ SCH ×3 (07:45→16:38)
[2020-11-10 09:29] LABS: HEMATOCRIT 25.8 % (32.4-45.2); HEMOGLOBIN 8.5 GM/dL (10.7-15.3); MCH 25.4 pg (25.7-33.7); MEAN PLT VOLUME 9.3 fl (7.5-11.1); PLATELET COUNT 159 K/MM3 (134-434); RBC 3.35 M/mm3 (3.60-5.2); RDW 19.2 % (11.6-15.6); WHITE BLOOD COUNT 9.7 K/mm3 (4.0-10.0)
[2020-11-10 10:08] VITALS: TEMP 97.7
[2020-11-10 10:11] LABS: CALCIUM 8.3 mg/dL (8.5-10.1)
[2020-11-10 10:12] LABS: ALBUMIN 2.9 g/dl (3.4-5.0); BLOOD UREA NITROGEN 67.3 mg/dL (7-18)
[2020-11-10 10:15] LABS: CREATININE 4.1 mg/dL (0.55-1.3)
[2020-11-10] MEDS ORDERED: PT OWN MED DRAWER 7, Y5N ONE ×2 (10:15→11:19)
[2020-11-10 10:16] LABS: TOT PROT 5.9 g/dl (6.4-8.2)
[2020-11-10 10:19] LABS: MAGNESIUM 1.6 mg/dL (1.8-2.4)
[2020-11-10] MEDS: PANTOPRAZOLE 40 MG TABLET PO SCH (10:44)
[2020-11-10] MEDS: AMOXICILLIN 500 MG CAPSULE (FP) PO SCH (10:44)
[2020-11-10] MEDS: POLYETHYLENE GLYCOL 3350 119 GM BTL PO SCH (10:44)
[2020-11-10] MEDS: amLODIPine BESYLATE 10 MG TABLET (FP) PO SCH (10:44)
[2020-11-10] MEDS: metoPROLOL SUCCINATE 25 MG TAB.SR.24H (FP) PO SCH (10:44)
[2020-11-10] MEDS: CLARITHROMYCIN 500 MG TABLET (UD) PO SCH (10:44)
[2020-11-10] MEDS ORDERED: MAGNESIUM OXIDE 400 MG TABLET (FP) PO ONE (12:00)
[2020-11-10 15:38] VITALS: BP 144/69; PULSE 99
== END 2020-11-10 19:14 | disposition home or self-care (01) | DRG 683 ==
LOC: FER 11:32 → FM/S 11:58 → JICU 19:40 → J4W 11-04 01:14
PROVIDERS: ADMIT Internal Medicine; ATTEND Nurse Practitioner Family
PROC: 30233N1 Transfusion of Nonautologous Red Blood Cells into Peripheral Vein, Percutaneous Approach (ICD-10-PCS; 2020-11-03)
PROC: 0DJ08ZZ Inspection of Upper Intestinal Tract, Via Natural or Artificial Opening Endoscopic (ICD-10-PCS; principal; 2020-11-09)
DX: N17.9 Acute kidney failure, unspecified (principal); K86.1 Other chronic pancreatitis; I13.0 Hypertensive heart and chronic kidney disease with heart failure and stage 1 through stage 4 chronic kidney disease, or unspecified chronic kidney disease; I50.32 Chronic diastolic (congestive) heart failure; A04.8 Other specified bacterial intestinal infections; D50.0 Iron deficiency anemia secondary to blood loss (chronic); E78.5 Hyperlipidemia, unspecified; K64.9 Unspecified hemorrhoids; E03.9 Hypothyroidism, unspecified; M41.9 Scoliosis, unspecified; R68.0 Hypothermia, not associated with low environmental temperature; E11.22 Type 2 diabetes mellitus with diabetic chronic kidney disease; N18.9 Chronic kidney disease, unspecified; D63.1 Anemia in chronic kidney disease; M54.5 Low back pain; K59.00 Constipation, unspecified; K31.89 Other diseases of stomach and duodenum; K29.80 Duodenitis without bleeding; B96.81 Helicobacter pylori [H. pylori] as the cause of diseases classified elsewhere; K25.9 Gastric ulcer, unspecified as acute or chronic, without hemorrhage or perforation; K44.9 Diaphragmatic hernia without obstruction or gangrene
CPT/HCPCS: 36415; 36430; 71045-TC-FY; 74176-TC; 76775-TC; 80048; 80053; 81003; 81015; 82272; 82436; 82550; 82565; 82728; 82784; 82947; 82962; 83036; 83540; 83550; 83605; 83690; 83735; 83883; 84100; 84133; 84155; 84156; 84165; 84300; 84439; 84443; 84481; 84484; 85025; 85027; 85045; 85610; 85730; 86850; 86900; 86901; 86922; 87040; 87086; 93005; 99285-25; C9803; J0885; J1644; P9058; U0003

== ENCOUNTER 2020-12-23 20:28 | Inpatient (IN) | payer OTHER ==
[2020-12-23] MEDS ORDERED: SODIUM CHLORIDE 1,000 ML IV SCH (21:00)
[2020-12-23 21:29] LABS: WHITE BLOOD COUNT 11.8 K/mm3 (4.0-10.8)
[2020-12-23 21:30] LABS: EOS % 0.2 % (0-4.5); HEMATOCRIT 27.2 % (32.4-45.2); HEMOGLOBIN 8.7 GM/dl (10.7-15.3); LYMPH % 7.6 % (8-40); MCH 24.4 pg (25.7-33.7); MCHC 31.9 g/dl (32.0-36.0); MEAN CELL VOLUME 76.7 fl (80-96); MEAN PLT VOLUME 8.4 fl (7.5-11.1); MONO % 5.9 % (3.8-10.2); NEUT % 86.1 % (42.8-82.8); PLATELET COUNT 184 K/MM3 (134-434); RBC 3.55 M/mm3 (3.60-5.2)
[2020-12-23 21:31] LABS: BASO % 0.2 % (0-2.0)
[2020-12-23 21:51] LABS: ALBUMIN 3.4 g/dl (3.4-5.0); BILIRUBIN,TOTAL 0.5 mg/dl (0.2-1); CALCIUM 9.2 mg/dl (8.5-10); POTASSIUM 3.8 mmol/L (3.5-5.1); TOT PROT 6.8 g/dl (6.4-8.2)
[2020-12-23] MEDS ORDERED: PIPERACILLIN/TAZOB 2.25 GM 2.25 GM in DEXTROSE 5%-WATER - 50 ML IVPB ONE (22:11)
[2020-12-23] MEDS ORDERED: PIPERACILLIN/TAZOBACTAM 4.5 GM VIAL IVPB ONE (22:13)
[2020-12-23] MEDS ORDERED: VANCOMYCIN 1 GM in D5W (PRE-DOCKED) 1,000 MG/250 ML IVPB ONE (22:13)
[2020-12-23] MEDS ORDERED: ENOXAPARIN NA (PORCINE) 80 MG/0.8 ML DISP.SYRIN SQ ONE (22:25)
[2020-12-23] MEDS ORDERED: ENOXAPARIN NA (PORCINE) 100 MG/1 ML DISP.SYRIN SQ ONE (22:34)
[2020-12-23] MEDS ORDERED: VANCOMYCIN 1,000 MG VIAL (RESTRICTED TO ID ONLY) ONE (22:36)
[2020-12-24 00:57] VITALS: BMI 26.1
[2020-12-24] MEDS ORDERED: ACETAMINOPHEN 500 MG TABLET (FP) PO PRN (04:53)
[2020-12-24] MEDS ORDERED: ONDANSETRON 8 MG TABLET (FP) PO PRN (04:53)
[2020-12-24] MEDS: LEVOTHYROXINE NA 25 MCG TABLET (FP) PO SCH (06:28)
[2020-12-24] MEDS: AMYLASE PO SCH (06:38)
[2020-12-24] MEDS: PROTEASE PO SCH (06:38)
[2020-12-24] MEDS: LIPASE PO SCH (06:38)
[2020-12-24] MEDS: [UNRECOGNIZED DRUG - OTHER] PO SCH (06:38)
[2020-12-24] MEDS: INSULIN SLIDING SCALE (NOVOLOG) 1 VIAL SQ SCH ×4 (06:42→21:37)
[2020-12-24 08:05] LABS: HEMATOCRIT 22.1 % (32.4-45.2); HEMOGLOBIN 7.7 GM/dl (10.7-15.3); MCHC 34.9 g/dl (32.0-36.0); MEAN CELL VOLUME 83.2 fl (80-96); PLATELET COUNT 165 K/MM3 (134-434); RBC 2.65 M/mm3 (3.60-5.2); RDW 16.5 % (11.6-15.6); WHITE BLOOD COUNT 8.9 K/mm3 (4.0-10.8)
[2020-12-24 08:23] LABS: ALBUMIN 2.9 g/dl (3.4-5.0); BILIRUBIN,TOTAL 0.6 mg/dl (0.2-1); CALCIUM 8.7 mg/dl (8.5-10); CREATININE 3.8 mg/dl (0.55-1.3); MAGNESIUM 2.1 mg/dL (1.8-2.4); PHOSPHOROUS 5.1 mg/dl (2.5-4.9); POTASSIUM 3.4 mmol/L (3.5-5.1); TOT PROT 5.7 g/dl (6.4-8.2)
[2020-12-24] MEDS: metoPROLOL SUCCINATE 25 MG TAB.SR.24H (FP) PO SCH (09:30)
[2020-12-24] MEDS: MULTIVITAMINS (DAILY MVI) TABLET (FP) PO SCH (09:30)
[2020-12-24] MEDS: ASCORBIC ACID 500 MG TABLET (FP) PO SCH ×2 (09:30→21:36)
[2020-12-24] MEDS: ENOXAPARIN NA (PORCINE) 80 MG/0.8 ML DISP.SYRIN SQ SCH (09:31)
[2020-12-24] MEDS ORDERED: HEPARIN NA (PORCINE) 5,000 UNITS/ML 1ML VIAL SQ SCH (10:00)
[2020-12-24] MEDS: CHOLECALCIFEROL (VIT D3) 1,000 UNIT (25 MCG) TABLET PO SCH ×2 (10:00→21:35)
[2020-12-24] MEDS ORDERED: FUROSEMIDE 40 MG TABLET (FP) PO SCH (10:00)
[2020-12-24] MEDS ORDERED: POTASSIUM CHLORIDE TABS 20 MEQ TABLET.ER (FP) PO ONE (10:03)
[2020-12-24] MEDS: CEFAZOLIN 1 GM/D5W 1 GM/50 ML BAG IVPB SCH ×2 (11:07→21:34)
[2020-12-24 13:32] LABS: EPITHELIAL CELLS FEW /hpf
[2020-12-24] MEDS: CALCIUM 500MG/VIT-D 200 UNITS COMBO TABLET (FP) PO SCH ×2 (17:33→21:35)
[2020-12-24] MEDS: FERROUS SO4 325 MG TABLET (FP) PO SCH (17:33)
[2020-12-24] MEDS: INSULIN (LEVEMIR) 100 UNITS/ML UNITS SQ SCH (21:34)
[2020-12-24] MEDS: amLODIPine BESYLATE 10 MG TABLET (FP) PO SCH (21:35)
[2020-12-24] MEDS: ATORVASTATIN CA 40 MG TABLET (FP) PO SCH (21:35)
[2020-12-25] MEDS: LEVOTHYROXINE NA 25 MCG TABLET (FP) PO SCH (06:27)
[2020-12-25] MEDS: INSULIN SLIDING SCALE (NOVOLOG) 1 VIAL SQ SCH ×4 (07:26→21:47)
[2020-12-25] MEDS: CEFAZOLIN 1 GM/D5W 1 GM/50 ML BAG IVPB SCH ×2 (09:13→21:46)
[2020-12-25] MEDS: ENOXAPARIN NA (PORCINE) 80 MG/0.8 ML DISP.SYRIN SQ SCH (09:14)
[2020-12-25] MEDS: CHOLECALCIFEROL (VIT D3) 1,000 UNIT (25 MCG) TABLET PO SCH ×2 (09:14→21:47)
[2020-12-25] MEDS: FERROUS SO4 325 MG TABLET (FP) PO SCH (09:14)
[2020-12-25] MEDS: metoPROLOL SUCCINATE 25 MG TAB.SR.24H (FP) PO SCH (09:14)
[2020-12-25] MEDS: ASCORBIC ACID 500 MG TABLET (FP) PO SCH ×2 (09:14→21:47)
[2020-12-25] MEDS: CALCIUM 500MG/VIT-D 200 UNITS COMBO TABLET (FP) PO SCH ×2 (09:14→21:46)
[2020-12-25] MEDS: MULTIVITAMINS (DAILY MVI) TABLET (FP) PO SCH (09:14)
[2020-12-25 09:22] LABS: ALBUMIN 2.7 g/dl (3.4-5.0); BILIRUBIN,TOTAL 0.5 mg/dl (0.2-1); CALCIUM 8.7 mg/dl (8.5-10); CREATININE 4.2 mg/dl (0.55-1.3); POTASSIUM 4.6 mmol/L (3.5-5.1); TOT PROT 5.3 g/dl (6.4-8.2)
[2020-12-25 09:27] LABS: BASO % 1.7 % (0-2.0); EOS % 1.3 % (0-4.5); HEMATOCRIT 23.3 % (32.4-45.2); HEMOGLOBIN 7.1 GM/dl (10.7-15.3); LYMPH % 21.7 % (8-40); MCH 22.2 pg (25.7-33.7); MCHC 30.6 g/dl (32.0-36.0); MEAN CELL VOLUME 72.8 fl (80-96); MEAN PLT VOLUME 8.6 fl (7.5-11.1); MONO % 8.9 % (3.8-10.2); NEUT % 66.4 % (42.8-82.8); PLATELET COUNT 166 K/MM3 (134-434); WHITE BLOOD COUNT 8.6 K/mm3 (4.0-10.8)
[2020-12-25] MEDS: [UNRECOGNIZED DRUG - OTHER] PO SCH ×2 (10:08→10:09)
[2020-12-25] MEDS: PROTEASE PO SCH ×2 (10:08→10:09)
[2020-12-25] MEDS: LIPASE PO SCH ×2 (10:08→10:09)
[2020-12-25] MEDS: AMYLASE PO SCH ×2 (10:08→10:09)
[2020-12-25] MEDS: LIPASE/PROTEASE/AMYLASE 6,000 UNIT CAPSULE PO SCH ×2 (11:44→17:04)
[2020-12-25 12:27] LABS: ADD RBC MORPHOLOGY YES
[2020-12-25 12:29] LABS: ANISOCYTOSIS 1+; OVALOCYTE 1+; PLATELET ESTIMATE ADEQUATE; TEAR DROP CELLS 1+
[2020-12-25 13:14] LABS: HEMATOCRIT 23.2 % (32.4-45.2); HEMOGLOBIN 7.4 GM/dl (10.7-15.3); MCH 23.4 pg (25.7-33.7); MCHC 31.8 g/dl (32.0-36.0); MEAN CELL VOLUME 73.7 fl (80-96); MEAN PLT VOLUME 8.3 fl (7.5-11.1); PLATELET COUNT 163 K/MM3 (134-434); RBC 3.15 M/mm3 (3.60-5.2); RDW 15.6 % (11.6-15.6); WHITE BLOOD COUNT 8.7 K/mm3 (4.0-10.8)
[2020-12-25] MEDS: FUROSEMIDE 40 MG TABLET (FP) PO SCH (18:50)
[2020-12-25] MEDS: amLODIPine BESYLATE 10 MG TABLET (FP) PO SCH (21:47)
[2020-12-25] MEDS: ATORVASTATIN CA 40 MG TABLET (FP) PO SCH (21:47)
[2020-12-25] MEDS: INSULIN (LEVEMIR) 100 UNITS/ML UNITS SQ SCH (21:48)
[2020-12-26] MEDS: INSULIN SLIDING SCALE (NOVOLOG) 1 VIAL SQ SCH ×4 (06:38→21:50)
[2020-12-26] MEDS: LEVOTHYROXINE NA 25 MCG TABLET (FP) PO SCH (06:39)
[2020-12-26] MEDS ORDERED: ONDANSETRON *ODT* 4 MG TABLET SL PRN (07:27)
[2020-12-26] MEDS ORDERED: PT OWN MED DRAWER 7, Y5N ONE ×4 (07:46→16:54)
[2020-12-26 07:56] LABS: BASO % 1.1 % (0-2.0); EOS % 1.8 % (0-4.5); HEMATOCRIT 19.1 % (32.4-45.2); HEMOGLOBIN 7.3 GM/dl (10.7-15.3); MEAN CELL VOLUME 109.9 fl (80-96); MEAN PLT VOLUME 7.9 fl (7.5-11.1); MONO % 9.4 % (3.8-10.2); NEUT % 69.7 % (42.8-82.8); PLATELET COUNT 173 K/MM3 (134-434); RBC 1.74 M/mm3 (3.60-5.2); RDW 17.4 % (11.6-15.6); WHITE BLOOD COUNT 8.7 K/mm3 (4.0-10.8)
[2020-12-26 08:04] LABS: ALBUMIN 2.7 g/dl (3.4-5.0); BILIRUBIN,TOTAL 0.6 mg/dl (0.2-1); CALCIUM 8.5 mg/dl (8.5-10); CREATININE 4.1 mg/dl (0.55-1.3); MAGNESIUM 1.9 mg/dL (1.8-2.4); PHOSPHOROUS 4.1 mg/dl (2.5-4.9); TOT PROT 5.6 g/dl (6.4-8.2)
[2020-12-26] MEDS: LIPASE/PROTEASE/AMYLASE 6,000 UNIT CAPSULE PO SCH ×3 (08:06→16:53)
[2020-12-26 08:07] LABS: MCH 41.8 pg (25.7-33.7)
[2020-12-26 09:20] LABS: PLATELET ESTIMATE ADEQUATE
[2020-12-26 09:22] LABS: ADD RBC MORPHOLOGY YES
[2020-12-26] MEDS: CEFAZOLIN 1 GM/D5W 1 GM/50 ML BAG IVPB SCH ×2 (09:47→21:52)
[2020-12-26] MEDS: FERROUS SO4 325 MG TABLET (FP) PO SCH (09:48)
[2020-12-26] MEDS: MULTIVITAMINS (DAILY MVI) TABLET (FP) PO SCH (09:49)
[2020-12-26] MEDS: CHOLECALCIFEROL (VIT D3) 1,000 UNIT (25 MCG) TABLET PO SCH ×2 (09:49→21:49)
[2020-12-26] MEDS: ASCORBIC ACID 500 MG TABLET (FP) PO SCH ×2 (09:50→21:49)
[2020-12-26] MEDS: metoPROLOL SUCCINATE 25 MG TAB.SR.24H (FP) PO SCH (09:50)
[2020-12-26] MEDS: FUROSEMIDE 40 MG TABLET (FP) PO SCH (09:50)
[2020-12-26] MEDS: CALCIUM 500MG/VIT-D 200 UNITS COMBO TABLET (FP) PO SCH ×2 (09:51→21:49)
[2020-12-26] MEDS: ENOXAPARIN NA (PORCINE) 80 MG/0.8 ML DISP.SYRIN SQ SCH (09:55)
[2020-12-26] MEDS: ATORVASTATIN CA 40 MG TABLET (FP) PO SCH (21:49)
[2020-12-26] MEDS: amLODIPine BESYLATE 10 MG TABLET (FP) PO SCH (21:49)
[2020-12-26] MEDS: INSULIN (LEVEMIR) 100 UNITS/ML UNITS SQ SCH (21:50)
[2020-12-27] MEDS: LEVOTHYROXINE NA 25 MCG TABLET (FP) PO SCH (06:23)
[2020-12-27] MEDS: INSULIN SLIDING SCALE (NOVOLOG) 1 VIAL SQ SCH ×4 (08:10→22:04)
[2020-12-27] MEDS ORDERED: PT OWN MED DRAWER 7, Y5N ONE ×3 (08:13→17:42)
[2020-12-27] MEDS: LIPASE/PROTEASE/AMYLASE 6,000 UNIT CAPSULE PO SCH ×3 (08:22→17:43)
[2020-12-27 08:33] LABS: CALCIUM 8.9 mg/dl (8.5-10); CREATININE 4.5 mg/dl (0.55-1.3); POTASSIUM 4.2 mmol/L (3.5-5.1)
[2020-12-27] MEDS: CALCIUM 500MG/VIT-D 200 UNITS COMBO TABLET (FP) PO SCH ×2 (09:33→22:04)
[2020-12-27] MEDS: MULTIVITAMINS (DAILY MVI) TABLET (FP) PO SCH (09:34)
[2020-12-27] MEDS: ASCORBIC ACID 500 MG TABLET (FP) PO SCH ×2 (09:34→22:04)
[2020-12-27] MEDS: FERROUS SO4 325 MG TABLET (FP) PO SCH (09:35)
[2020-12-27] MEDS: ENOXAPARIN NA (PORCINE) 80 MG/0.8 ML DISP.SYRIN SQ SCH (09:36)
[2020-12-27] MEDS: CHOLECALCIFEROL (VIT D3) 1,000 UNIT (25 MCG) TABLET PO SCH ×2 (09:37→22:04)
[2020-12-27] MEDS: metoPROLOL SUCCINATE 25 MG TAB.SR.24H (FP) PO SCH (09:38)
[2020-12-27] MEDS: CEFAZOLIN 1 GM/D5W 1 GM/50 ML BAG IVPB SCH ×2 (09:38→22:04)
[2020-12-27 21:10] LABS: BASO % 0.4 % (0-2.0); EOS % 2.3 % (0-4.5); HEMATOCRIT 23.9 % (32.4-45.2); HEMOGLOBIN 7.4 GM/dl (10.7-15.3); LYMPH % 16.1 % (8-40); MCH 23.8 pg (25.7-33.7); MCHC 30.9 g/dl (32.0-36.0); MEAN PLT VOLUME 9.2 fl (7.5-11.1); MONO % 8.9 % (3.8-10.2); NEUT % 72.3 % (42.8-82.8); PLATELET COUNT 202 K/MM3 (134-434); RBC 3.11 M/mm3 (3.60-5.2); RDW 15.6 % (11.6-15.6); WHITE BLOOD COUNT 9.7 K/mm3 (4.0-10.8)
[2020-12-27 21:27] LABS: ALBUMIN 2.8 g/dl (3.4-5.0); BILIRUBIN,TOTAL 0.5 mg/dl (0.2-1); TOT PROT 5.9 g/dl (6.4-8.2)
[2020-12-27] MEDS: INSULIN (LEVEMIR) 100 UNITS/ML UNITS SQ SCH (22:03)
[2020-12-27] MEDS: amLODIPine BESYLATE 10 MG TABLET (FP) PO SCH (22:04)
[2020-12-27] MEDS: ATORVASTATIN CA 40 MG TABLET (FP) PO SCH (22:04)
[2020-12-28] MEDS: INSULIN SLIDING SCALE (NOVOLOG) 1 VIAL SQ SCH ×4 (06:57→21:26)
[2020-12-28] MEDS: LEVOTHYROXINE NA 50 MCG TABLET (FP) PO SCH (06:58)
[2020-12-28] MEDS ORDERED: PT OWN MED DRAWER 7, Y5N ONE ×3 (08:30→17:12)
[2020-12-28] MEDS: LIPASE/PROTEASE/AMYLASE 6,000 UNIT CAPSULE PO SCH ×3 (08:34→17:15)
[2020-12-28 09:03] LABS: BASO % 1.4 % (0-2.0); EOS % 2.6 % (0-4.5); HEMATOCRIT 22.1 % (32.4-45.2); LYMPH % 13.5 % (8-40); MCH 24.9 pg (25.7-33.7); MCHC 31.7 g/dl (32.0-36.0); MEAN CELL VOLUME 78.7 fl (80-96); MEAN PLT VOLUME 8.7 fl (7.5-11.1); MONO % 6.5 % (3.8-10.2); PLATELET COUNT 203 K/MM3 (134-434); RBC 2.81 M/mm3 (3.60-5.2); RDW 15.1 % (11.6-15.6); WHITE BLOOD COUNT 8.6 K/mm3 (4.0-10.8)
[2020-12-28 09:20] LABS: ALBUMIN 2.7 g/dl (3.4-5.0); BILIRUBIN,TOTAL 0.6 mg/dl (0.2-1); CALCIUM 8.6 mg/dl (8.5-10); CREATININE 4.4 mg/dl (0.55-1.3); MAGNESIUM 1.6 mg/dL (1.8-2.4); POTASSIUM 3.7 mmol/L (3.5-5.1); TOT PROT 5.6 g/dl (6.4-8.2)
[2020-12-28] MEDS: MULTIVITAMINS (DAILY MVI) TABLET (FP) PO SCH (09:41)
[2020-12-28] MEDS: CHOLECALCIFEROL (VIT D3) 1,000 UNIT (25 MCG) TABLET PO SCH ×2 (09:41→21:24)
[2020-12-28] MEDS: ASCORBIC ACID 500 MG TABLET (FP) PO SCH ×2 (09:41→21:23)
[2020-12-28] MEDS: FERROUS SO4 325 MG TABLET (FP) PO SCH (09:41)
[2020-12-28] MEDS: CALCIUM 500MG/VIT-D 200 UNITS COMBO TABLET (FP) PO SCH ×2 (09:41→21:24)
[2020-12-28] MEDS: CEFAZOLIN 1 GM/D5W 1 GM/50 ML BAG IVPB SCH ×2 (09:41→21:23)
[2020-12-28] MEDS ORDERED: MAGNESIUM SULF 50% (8.12 MEQ/2 ML-1 GM VIAL) IVPB ONE (09:57)
[2020-12-28] MEDS: metoPROLOL SUCCINATE 25 MG TAB.SR.24H (FP) PO SCH (10:00)
[2020-12-28] MEDS ORDERED: MAGNESIUM SULFATE IN WATER 2 GM/50 ML IVPB IVPB ONE (10:15)
[2020-12-28] MEDS ORDERED: EPOETIN ALFA 10,000 UNIT/1 ML VIAL SQ ONE (12:00)
[2020-12-28] MEDS ORDERED: REFRIGERATED ANITBIOTICS ONE (12:14)
[2020-12-28] MEDS: PANTOPRAZOLE 40 MG TABLET PO SCH (21:23)
[2020-12-28] MEDS: amLODIPine BESYLATE 10 MG TABLET (FP) PO SCH (21:23)
[2020-12-28] MEDS: ATORVASTATIN CA 40 MG TABLET (FP) PO SCH (21:24)
[2020-12-28] MEDS: INSULIN (LEVEMIR) 100 UNITS/ML UNITS SQ SCH (21:26)
[2020-12-29] MEDS ORDERED: FUROSEMIDE 40 MG/4 ML INJECTABLE VIAL IVPUSH ONE (02:45)
[2020-12-29] MEDS: INSULIN SLIDING SCALE (NOVOLOG) 1 VIAL SQ SCH ×2 (06:01→11:50)
[2020-12-29] MEDS: LEVOTHYROXINE NA 50 MCG TABLET (FP) PO SCH (06:03)
[2020-12-29] MEDS ORDERED: LOCK ITEM NR ONE (07:02)
[2020-12-29 08:09] LABS: BASO % 1.2 % (0-2.0); EOS % 2.2 % (0-4.5); HEMATOCRIT 21.5 % (32.4-45.2); HEMOGLOBIN 7.7 GM/dl (10.7-15.3); LYMPH % 17.6 % (8-40); MCH 31.3 pg (25.7-33.7); MCHC 35.8 g/dl (32.0-36.0); MEAN CELL VOLUME 87.4 fl (80-96); MEAN PLT VOLUME 8.7 fl (7.5-11.1); MONO % 7.8 % (3.8-10.2); NEUT % 71.2 % (42.8-82.8); PLATELET COUNT 192 K/MM3 (134-434); RBC 2.46 M/mm3 (3.60-5.2); RDW 16.8 % (11.6-15.6); WHITE BLOOD COUNT 8.5 K/mm3 (4.0-10.8)
[2020-12-29 08:15] LABS: ALBUMIN 2.5 g/dl (3.4-5.0); BILIRUBIN,TOTAL 0.7 mg/dl (0.2-1); CALCIUM 8.5 mg/dl (8.5-10); CREATININE 4.1 mg/dl (0.55-1.3); MAGNESIUM 2.1 mg/dL (1.8-2.4); TOT PROT 5.4 g/dl (6.4-8.2)
[2020-12-29] MEDS ORDERED: PT OWN MED DRAWER 7, Y5N ONE ×3 (08:33→11:54)
[2020-12-29] MEDS: FERROUS SO4 325 MG TABLET (FP) PO SCH (09:51)
[2020-12-29] MEDS: LIPASE/PROTEASE/AMYLASE 6,000 UNIT CAPSULE PO SCH ×2 (09:51→11:50)
[2020-12-29] MEDS: CALCIUM 500MG/VIT-D 200 UNITS COMBO TABLET (FP) PO SCH (09:52)
[2020-12-29] MEDS: ASCORBIC ACID 500 MG TABLET (FP) PO SCH (09:52)
[2020-12-29] MEDS: MULTIVITAMINS (DAILY MVI) TABLET (FP) PO SCH (09:53)
[2020-12-29] MEDS: PANTOPRAZOLE 40 MG TABLET PO SCH (09:53)
[2020-12-29] MEDS: metoPROLOL SUCCINATE 25 MG TAB.SR.24H (FP) PO SCH (09:53)
[2020-12-29] MEDS: CHOLECALCIFEROL (VIT D3) 1,000 UNIT (25 MCG) TABLET PO SCH (09:53)
[2020-12-29] MEDS: CEFAZOLIN 1 GM/D5W 1 GM/50 ML BAG IVPB SCH (09:54)
[2020-12-29 09:58] VITALS: BP 134/68; PULSE 73; TEMP 98.6
== END 2020-12-29 15:55 | disposition home or self-care (01) | DRG 300 ==
LOC: FER 20:28 → FM/S 22:16 → UNDOADMIN 12-24
PROVIDERS: ADMIT Internal Medicine; ATTEND Nurse Practitioner Acute Care
DX: I82.4Z1 Acute embolism and thrombosis of unspecified deep veins of right distal lower extremity (principal); L03.115 Cellulitis of right lower limb; I13.2 Hypertensive heart and chronic kidney disease with heart failure and with stage 5 chronic kidney disease, or end stage renal disease; I50.32 Chronic diastolic (congestive) heart failure; N18.5 Chronic kidney disease, stage 5; K86.1 Other chronic pancreatitis; E11.9 Type 2 diabetes mellitus without complications; D63.1 Anemia in chronic kidney disease; E78.5 Hyperlipidemia, unspecified; E03.9 Hypothyroidism, unspecified
CPT/HCPCS: 36415; 36430; 71045-TC-FY; 80048; 80053; 80076; 81003; 81015; 82272; 82728; 82962; 83010; 83036; 83540; 83550; 83615; 83735; 84100; 84443; 85025; 85027; 85045; 85379; 86850; 86880; 86900; 86901; 86922; 87040; 87077; 87086; 87186; 93005; 93971-TC; 97116-GP; 97161-GP; 99285-25; C9803; J0885; P9058; Q0162; U0003

== ENCOUNTER 2021-01-30 04:14 | Day surgery (SDC) | payer OTHER ==
[2021-01-26 12:19] VITALS: BMI 26.5
[2021-01-30] MEDS ORDERED: POVIDONE-IODINE OINTMENT 10% - 28.4 GM TUBE ONE (09:31)
[2021-01-30] MEDS ORDERED: LIDOCAINE HCL 1%, 10 MG/ML (20ML VIAL) ONE (09:31)
[2021-01-30] MEDS ORDERED: HEPARIN NA (PORCINE) 5,000 UNITS/ML 1ML VIAL ONE (09:31)
[2021-01-30] MEDS ORDERED: PAPAVERINE HCL 30 MG/1 ML 10 ML VIAL NR ONE (09:33)
[2021-01-30] MEDS ORDERED: PROPOFOL 20 ML ONE ×2 (09:52)
[2021-01-30] MEDS ORDERED: LIDOCAINE HCL 1%, 10 MG/ML (20ML VIAL) SQ ONE (09:57)
[2021-01-30] MEDS ORDERED: HEPARIN NA (PORCINE) 5,000 UNITS/ML 1ML VIAL SQ ONE (09:57)
[2021-01-30] MEDS ORDERED: EPHEDRINE SULFATE/0.9% NACL/PF 50 MG/10 ML SYRINGE NR ONE (10:01)
[2021-01-30] MEDS ORDERED: ACETAMINOPHEN 500 MG TABLET (FP) PO PRN (11:05)
[2021-01-30] MEDS ORDERED: ONDANSETRON 4 MG/2 ML VIAL IVPUSH PRN (11:05)
[2021-01-30 13:54] VITALS: BP 122/50; PULSE 90; TEMP 100
== END 2021-01-30 13:10 | disposition home or self-care (01) ==
LOC: JASU-SURG 04:14
PROVIDERS: ATTEND Surgery
PROC: 03180ZD Bypass Left Brachial Artery to Upper Arm Vein, Open Approach (ICD-10-PCS; principal; 2021-01-30 09:30)
DX: I12.0 Hypertensive chronic kidney disease with stage 5 chronic kidney disease or end stage renal disease (principal); E11.22 Type 2 diabetes mellitus with diabetic chronic kidney disease; N18.6 End stage renal disease; Z99.2 Dependence on renal dialysis
CPT/HCPCS: 82962; 94760; J1644

== ENCOUNTER 2021-02-17 04:19 | Day surgery (SDC) | payer OTHER ==
[2021-02-16 12:27] VITALS: BMI 26.2
[2021-02-17] MEDS ORDERED: LIDOCAINE HCL/PF 1% SDV 5ML VIAL ONE (07:20)
[2021-02-17] MEDS ORDERED: BUPIVACAINE HCL/PF 0.75% 10 ML VIAL ONE (07:30)
[2021-02-17 10:51] VITALS: BP 126/55; PULSE 66; TEMP 97.6
== END 2021-02-17 11:27 | disposition home or self-care (01) ==
LOC: JASU-SURG 04:19
PROVIDERS: ATTEND Pain Medicine Pain Medicine
PROC: BR16YZZ Fluoroscopy of Lumbar Facet Joint(s) using Other Contrast (ICD-10-PCS; 2021-02-17)
PROC: 3E0T3BZ Introduction of Anesthetic Agent into Peripheral Nerves and Plexi, Percutaneous Approach (ICD-10-PCS; principal; 2021-02-17 09:05)
DX: M47.816 Spondylosis without myelopathy or radiculopathy, lumbar region (principal)
CPT/HCPCS: 76000-TC-FY

== ENCOUNTER 2021-03-17 04:56 | Day surgery (SDC) | payer OTHER ==
[2021-03-14 14:12] VITALS: BMI 25.8
[2021-03-17] MEDS ORDERED: LIDOCAINE HCL 1%, 10 MG/ML (20ML VIAL) INF ONE (14:40)
[2021-03-17] MEDS ORDERED: BUPIVACAINE HCL/PF 0.75% 10 ML VIAL PNB ONE (14:41)
[2021-03-17 15:23] VITALS: BP 167/62; PULSE 76; TEMP 97.2
== END 2021-03-17 15:30 | disposition home or self-care (01) ==
LOC: JASU-SURG 04:56
PROVIDERS: ATTEND Pain Medicine Pain Medicine
PROC: BR16YZZ Fluoroscopy of Lumbar Facet Joint(s) using Other Contrast (ICD-10-PCS; 2021-03-17)
PROC: 3E0T3BZ Introduction of Anesthetic Agent into Peripheral Nerves and Plexi, Percutaneous Approach (ICD-10-PCS; principal; 2021-03-17 14:00)
DX: M47.816 Spondylosis without myelopathy or radiculopathy, lumbar region (principal)
CPT/HCPCS: 76000-TC-FY

== ENCOUNTER 2021-06-30 04:23 | Day surgery (SDC) | payer OTHER ==
[2021-06-29 08:56] VITALS: BMI 25.6
[2021-06-30] MEDS ORDERED: DEXMEDETOMIDINE HCL 200 MCG/2 ML IVPB ONE (07:02)
[2021-06-30] MEDS ORDERED: ACETAMINOPHEN INJECTION 200 ML IVPB ONE (07:02)
[2021-06-30] MEDS ORDERED: LIDOCAINE HCL 1%, 10 MG/ML (20ML VIAL) ONE (07:13)
[2021-06-30] MEDS ORDERED: POVIDONE-IODINE OINTMENT 10% - 28.4 GM TUBE ONE (07:13)
[2021-06-30] MEDS ORDERED: HEPARIN NA (PORCINE) 5,000 UNITS/ML 1ML VIAL ONE (07:13)
[2021-06-30] MEDS ORDERED: PAPAVERINE HCL 30 MG/1 ML 10 ML VIAL NR ONE (07:13)
[2021-06-30] MEDS ORDERED: KETAMINE HCL 200 MG/20 ML VIAL ONE (07:21)
[2021-06-30] MEDS ORDERED: PROPOFOL 20 ML ONE ×3 (07:21)
[2021-06-30] MEDS ORDERED: ceFAZolin SODIUM 1 GM VIAL ONE (07:22)
[2021-06-30] MEDS ORDERED: ONDANSETRON 4 MG/2 ML VIAL ONE (07:22)
[2021-06-30] MEDS ORDERED: LIDOCAINE HCL/PF 2% SDV 5ML VIAL ONE (07:22)
[2021-06-30] MEDS ORDERED: LIDOCAINE HCL 2% JELLY (5 ML/TUBE) ONE (07:22)
[2021-06-30] MEDS ORDERED: ceFAZolin SODIUM 1 GM VIAL IVPB ONE (08:15)
[2021-06-30] MEDS ORDERED: LIDOCAINE HCL 1%, 10 MG/ML (20ML VIAL) PNB ONE ×2 (08:25)
[2021-06-30] MEDS ORDERED: POVIDONE-IODINE OINTMENT 10% - 28.4 GM TUBE TP ONE ×2 (08:33→09:43)
[2021-06-30] MEDS ORDERED: oxyCODONE HCL 5 MG TABLET PO PRN (09:54)
[2021-06-30 12:02] VITALS: PULSE 64; TEMP 98.5
[2021-06-30 12:20] VITALS: BP 110/53
== END 2021-06-30 12:05 | disposition home or self-care (01) ==
LOC: JASU-SURG 04:23
PROVIDERS: ATTEND Surgery
PROC: 03160JD Bypass Left Axillary Artery to Upper Arm Vein with Synthetic Substitute, Open Approach (ICD-10-PCS; principal; 2021-06-30 08:00)
DX: I12.0 Hypertensive chronic kidney disease with stage 5 chronic kidney disease or end stage renal disease (principal); N18.6 End stage renal disease; E11.22 Type 2 diabetes mellitus with diabetic chronic kidney disease; Z79.4 Long term (current) use of insulin
CPT/HCPCS: 36415; 82962; 84132; 94760; J0131; J1644

== ENCOUNTER → 2023-06-18 | Day surgery (SDC) | payer OTHER ==
[2023-06-05 14:23] VITALS: BMI 26.0
[~2023-06-18] MED LIST: ACETAMINOPHEN 500 MG TABLET (FP) PO PRN; BUPIVACAINE HCL/PF 0.75% 10 ML VIAL NR ONE; DEXAMETHASONE SOD PHOSPHATE 10 MG/1 ML VIAL IM ONE; DEXAMETHASONE SOD PHOSPHATE 10 MG/1 ML VIAL ONE; LIDOCAINE HCL 1% PRESERVATIVE FREE - 30ML VIAL IJ ONE; LIDOCAINE HCL 2% (50ML VIAL) INF ONE; LIDOCAINE HCL/PF 1% SDV 5ML VIAL ONE; LIDOCAINE HCL/PF 2% SDV 5ML VIAL ONE
[2023-06-18 10:44] VITALS: RESP 20
[2023-06-18 12:47] VITALS: BP 155/52; PULSE 68; TEMP 97.7
== END | disposition home or self-care (01) ==
LOC: JASU-SURG 04:39
PROVIDERS: ATTEND Pain Medicine Pain Medicine
PROC: 015B3ZZ Destruction of Lumbar Nerve, Percutaneous Approach (ICD-10-PCS; principal; 2023-06-18 12:00)
DX: M47.816 Spondylosis without myelopathy or radiculopathy, lumbar region (principal)
CPT/HCPCS: 76000-TC-FY; 82962; J1100

== ENCOUNTER 2023-09-09 14:55 | Emergency (ER) | payer OTHER ==
[2023-09-09 15:46] VITALS: BMI 27.6
[2023-09-09 18:46] VITALS: RESP 16
[2023-09-09] MEDS ORDERED: CARVEDILOL 25 MG TABLET (FP) PO ONE (19:02)
[2023-09-09] MEDS ORDERED: CARVEDILOL 25 MG TABLET (FP) ONE (19:24)
[2023-09-09 19:34] LABS: BASO % 1.2 % (0-2.0); EOS % 2.9 % (0-4.5); HEMATOCRIT 36.8 % (32.4-45.2); HEMOGLOBIN 11.6 GM/dL (10.7-15.3); LYMPH % 20.8 % (8-40); MCH 23.4 pg (25.7-33.7); MCHC 31.4 g/dl (32.0-36.0); MEAN CELL VOLUME 74.6 fl (80-96); MEAN PLT VOLUME 9.5 fl (7.5-11.1); MONO % 8.6 % (3.8-10.2); NEUT % 66.5 % (42.8-82.8); PLATELET COUNT 142 10^3/uL (134-434); RBC 4.94 M/mm3 (3.60-5.2); WHITE BLOOD COUNT 5.7 K/mm3 (4.0-10.0)
[2023-09-09 19:59] LABS: POTASSIUM 3.9 mmol/L (3.5-5.1)
[2023-09-09 20:01] LABS: CALCIUM 8.8 mg/dL (8.5-10.1)
[2023-09-09 20:02] LABS: ALBUMIN 3.3 g/dl (3.4-5.0); MAGNESIUM 2.1 mg/dL (1.8-2.4)
[2023-09-09 20:05] LABS: CREATININE 3.1 mg/dL (0.55-1.3)
[2023-09-09 20:07] LABS: BILIRUBIN,TOTAL 0.6 mg/dL (0.2-1); TOT PROT 6.4 g/dl (6.4-8.2)
[2023-09-09 21:17] VITALS: BP 153/78; PULSE 74; TEMP 98
== END 2023-09-09 21:17 | disposition home or self-care (01) ==
LOC: JER 14:55
DX: I10 Essential (primary) hypertension (principal); Z20.822 Contact with and (suspected) exposure to COVID-19
CPT/HCPCS: 0241U-QW; 36415; 71045-TC-FY; 80053; 82962; 83735; 84484; 85025; 93005; 93010; 99285-25